=== PATIENT | female | born 1985 | race Caucasian/White ===

== ENCOUNTER 2024-03-12 15:31 | Emergency (ER) | payer OTHER, SELFPAY ==
[2024-03-12 15:40] VITALS: BP 141/102; PULSE 89; RESP 16; O2SAT 99; BMI 31.0
--- NOTE | 2024-03-12 15:48 | CRLHL7_ITS ---
For Patients: As a result of the Cures Act, medical imaging exams and procedure reports are released immediately into your electronic medical record. You may view this report before your referring provider. If you have questions, please contact your health care provider. Indication: Injury. Technique: Right hand 3 views. Comparison: None. Findings: Bones: Acute, transverse, minimally displaced fracture of the index finger distal phalanx tuft. No other fracture identified. Alignment is otherwise normal. No aggressive osseous lesion. Joint spaces: Unremarkable. Soft tissues: Mild soft tissue swelling and irregularity about the distal index finger. Impression: Acute, transverse, minimally displaced fracture of the index finger distal phalanx tuft. In the setting of an overlying soft tissue injury, this is considered an open fracture. Dictated by Rich Powers MD @ 03/12/2024 6:05:55 PM (Electronically Signed)
--- OUTSIDE RECORDS SUMMARY | 2024-03-12 16:10 | XMS_ITS | Encounter Summary ---
[facility] Address [address] [place] [id number] Care Team Providers Care Paper Cup Machine Operator Name Role Phone Dipesh Florez MD Primary Care Provider [phone] Reason for Visit * Reason Comments Follow-up, NOS Entered automaticall y based on patient selection in [employer]. Encounter Details Date Type Department Care Team (Late Contact Info) Description 03/10/2024 2:50 PM CDT E-Visit [facility] [address] [place] [address] Claudia Roach, TEACHER BALLET, EARTHMOVING PLANT OPERATOR [address] [place], [place] [id number] Chief Comp: Follow-up, NOS Social History Tobacco Use Types Packs/Day Years Used Date Smoking Tobacco: Former Cigarettes Q uit: 2007 Smokeless Tobacco: Never Comments:Marijuana Alcohol Use Standard Drinks/Week Comments Not Currently 0 (1 standard drink = 0.6 oz pur e alcohol) 1-5 a month PHQ-2 Answer Date Recorded PHQ-2 Score 4 03/27/2023 Sex and Gender Information Value Date Recorded Sex Assigned at Not on file Gender Identity Not on file Sexual Orientation Not on file documented as of this encounter Plan of Treatment Upcoming Encounters Date Type Department Care Team (Late Contact Info) Description 03/14/2024 3:15 PM CDT Appointment [facility] [address] [address] [place] [address] [place] [address] 03/27/2024 1:45 PM CDT Appointment [facility] [address] [facility] [address] [place] [phone] Paras Hardy, PA-C [address] [place] [address] 04/10/2024 3:30 PM CDT [facility]ment [facility] [address] V[facility] [address] [place] [phone] Rupesh Figueroa MD [address] [place], [place] [id number] 04/18/2024 11:10 AM CDT Appointment [facility] [place] [address] [place] [phone] Loreta Siegel, JEANNA [address] [place] [address] 05/23/2024 9:50 AM CDT Telemedicine [facility] [address] [place] [address] Claudia Roach, TEACHER BALLET, EARTHMOVING PLANT OPERATOR [address] [place], [place] [phone] documented as of this encounter Visit Diagnoses Not on filedocumented in this encounter Care Teams Paper Cup Machine Operator Relationship Specialty [place] [address] [place] [address] PCP - General Family Practice 08/19/19 documented as of this encounter
--- OUTSIDE RECORDS SUMMARY | 2024-03-12 16:10 | XMS_ITS | Encounter Summary ---
Author Organization [facility] Address [address] [place] [id number] Care Team Providers Care Process Coach Name Role Phone Dipesh Florez MD Primary Care Provider Reason for Referral * Procedure/Equipment (Routine) - Incomplete Specialty Diagnoses / Procedures Referred By Contac t Referred To Contact Diagnoses Mass of lower inner quadrant of right breast Mass of lower inner quadrant of left breast Procedures [facility] [place] [address] [place] [address] Referral ID Status Reason Start Date Expiration Date V isits Requested Visits Authorized [id number] Incomplete 01/01/2024 04/01/2025 1 1 * Procedure/Equipment (Routine) - Incomplete Specialty Diagnoses / Procedures Referred By Contac t Referred To Contact Diagnoses Mass of lower inner quadrant of right breast Mass of lower inner quadrant of left breast Procedures [facility] Mammogram Diag Bilat W 3D [place] [address] [place] [address] Referral ID Status Reason Start Date Expiration Date V isits Requested Visits Authorized [id number] Incomplete 01/01/2024 04/01/2025 1 1 * Consult/Transfer Care (Routine) - New Request Specialty Diagnoses / Procedures Referred By Enoch pfeiffer Referred To Contact Diagnoses [place] [address] [place] [address] Referral ID Status Reason Start Date Expiration Date V isits Requested Visits Authorized [id number] New Request 01/01/2024 04/01/2025 1 1 Scheduling Instructions Your clinician has recommended an appointment with [facility] (ENT) - Head & Neck Surgery. You may call [phone] for help scheduling your appointment. We suggest you call your health insurance company about your coverage and benefits for this appointment. Question Answer Appointment Urgency? Non-Urgent Reason for visit? upper and lower lip papules Reason for Visit * Reason Comments Bumps Lips cheeks, breasts , underarm, throat Encounter Details Date Type Department Care Team (Late st Contact Info) Description 01/01/2024 3:00 PM CDT Office Visit [facility] [address] [place] [address] [place] [address] [place] [id number] Abdominal bloating (Primary Dx); Lip lesion; Anxiety state (HRC); Mass of lower inner quadrant of right breast; Mass of lower inner quadrant of left breast; Vaginal discharge Social History Tobacco Use Types Packs/Day Years Used Date Smoking Tobacco: Former Cigarettes Q uit: 2006 Smokeless Tobacco: Never Comments:Marijuana Alcohol Use Standard Drinks/Week Comments Yes 0 (1 standard drink = 0.6 oz pur e alcohol) 1-5 a month PHQ-2 Answer Date Recorded PHQ-2 Score 4 03/27/2023 Sex and Gender Information Value Date Recorded Sex Assigned at Not on file Gender Identity Not on file Sexual Orientation Not on file documented as of this encounter Last Filed Vital Signs Vital Sign Reading Time Taken Comments Blood Pressure 111/79 01/01/2024 2:57 PM CDT Pulse 91 01/01/2024 2:57 PM CDT Temperature - - Respiratory Rate - - Oxygen Saturation - - Inhaled Oxygen Concentration - - Weight 94.8 kg (209 lb) 01/01/2024 2:57 PM CDT Height - - Body Mass Index 30.86 07/05/2023 2:09 PM CDT documented in this encounter Patient Instructions * Patient Instructions* Dipesh Florez MD - 01/01/2024 3:00 PM CDT Take Miralax 1 capful twice daily Continue with fiber supplement, and 100 oz of fluid daily Check labs today Follow up with GI Schedule with ENT Schedule mammogram/breast US documented in this encounter Progress Notes * Dipesh Florez MD - 01/01/2024 3:00 PM CDT [facility] Progress note 01/01/2024 HPI: Bel Qureshi is a 38 y.o. female who presents for: She has been sick often over the past 2 months. Had influenza A early November, followed by sinusitis/bronchitis. Then a stomach bug last week. Abdominal bloating: She reports that her digestion has been slower since taking Ozempic last year. Over the past couplemonths her bloating and nausea have been worse. Feeling increased pressure on the left side of the abdomen. Having constipation with BMs every other day on average despite taking MiraLax and Citruceldaily. She mentions also using laxatives intermittently. She has been eating more fiber rich foods and drinking about 100 oz of fluid daily. She has previously tried the low FODMAP diet. Tries to avoid foods that upset her stomach. No recent bloody stool, vomiting, unintentional weight loss. CT of the abdomen/pelvis in June 2023 showed mild hepatic steatosis but no other concerning findings. She has previously met with GI clinic. In 2021 completed a colonoscopy and an EGD in 2020. Lip bumps: Over the past few months has been noticing small tender bumps on the inner upper and lower lips that come and go and also fluctuate in size. Denies trauma to the areas. No oral ulcers noted. Breast lumps: For about 2 months has noticed tender breast lumps on the lower medial aspect of both breasts. The breast pain on the left side radiates toward the axilla. She thought initially the bumps and tenderness were related to her menstrual cycle but they have not gone away. Of note she did have a normal mammogram and right breast ultrasound in March 2023. LMP end of November. Her periods have been irregular. Insomnia: Hydroxyzine has been helpful Vaginal discharge: She reports having vaginal discharge with odor over the past few weeks. Seems similar to previous BV infections. PMHX: Patient Active Problem List Diagnosis Irritable bowel syndrome Migraine Tobacco use disorder (HRC) Chronic tonsillitis Myalgia Depressive disorder Panic disorder without agoraphobia (HRC) Anxiety state (HRC) Adenoma of colon Current Outpatient Medications Medication Sig Dispense Refill acetaminophen (TYLENOL) 325 MG tablet Take 2 Tablets (650 mg) by mouth 4 times a day. 100 Tablet 11 ALBUterol sulfate HFA 108 (90 Base) MCG/ACT inhaler Inhale 1-2 Puffs every 4 hours as needed for Wheezing. 1 Each 1 azelastine (ASTELIN) 0.1 % nasal solution Place 1 [place] into both nostrils two times a day. 30 mL 2 cholecalciferol (VITAMIND3) 50 MCG (2000 UT) tablet Take 1 Tablet (2,000 Units) by mouth daily. EPINEPHrine (EPIPEN) 0.3 MG/0.3ML injection famotidine (PEPCID) 20 MG tablet Take 1 Tablet (20 mg) by mouth two times a day. fexofenadine (JOCELYN) 180 MG tablet Take 1 Tablet (180 mg) by mouth daily. fluticasone propionate (FLONASE) 50 MCG/ACT nasal solution Place 2 Sprays into both nostrils daily. hydrocortisone (ANUCORT-HC) 25 MG suppository Insert 1 Suppository (25 mg) rectally two times dailyas needed. 12 Each 0 hydrocortisone, Perianal, (PROCTOSOL-HC) 2.5 % rectal cream Insert rectally two times daily as needed. Indications: Inflamed Hemorrhoids 30 g 1 hydrOXYzine HCl (ATARAX) 25 MG tablet Take 1/2 to 1 Tablet (12.5-25 mg) by mouth every 8 hours as needed for Anxiety. 90 Tablet 2 hyoscyamine (LEVSIN/SL) 0.125 MG sublingual tablet Take 1 Tablet (0.125 mg) by mouth every 6 hours as needed for Cramping. 60 Tablet 3 ibuprofen (MOTRIN) 200 MG tablet Take 1-2 Tablets (200-400 mg) by mouth every 4 hours as needed forPain. Inositol-D Chiro-Inositol (OVASITOL OR) lidocaine 3% nifedipine 0.5% occluvan Apply a pea sized amount topically three times a day to the affected area. 60 g 1 LORazepam (ATIVAN) 0.5 MG tablet Take 1 Tablet (0.5 mg) by mouth daily as needed for Anxiety. 15 Tablet 0 methylcellulose (CITRUCEL) 500 MG Take 2 Tablets (1 g) by mouth two times a day. multivitamin (THERAGRAN) tablet Take 1 Tablet by mouth daily. naproxen sodium (ANAPROX) 220 MG tablet Take 1 Tablet (220 mg) by mouth two times a day with meals. NURTEC 75 MG TBDP Take 1 Tablet (75 mg) by mouth as needed. ondansetron (ZOFRAN-ODT) 4 MG disintegrating tablet 1 to 2 tabs by mouth up to twice a day as needed for nausea symptoms related to headache. Max 9 days per month. 20 Tablet 1 polyethylene glycol 3350 (GLYCOLAX) 17 GM/SCOOP powder Take 1 capful (17 g) and mix with 4oz-8oz liquid and drink by mouth two times a day. As needed 578 g 11 Probiotic Product (SUPER PROBIOTIC OR) 1 Tablet daily. riboflavin 100 MG Take 1 Tablet (100 mg) by mouth daily. 90 Tablet 3 No current facility-administered medications for this visit. Allergies Allergen Reactions Isovue [Iopamidol] Anaphylaxis, Breathing Difficulty and Chest Pain Iodine Unknown Semaglutide Gastrointestinal Sumatriptan Chest Pain Flushing Review of Systems: Complete ROS negative other than above Physical Exam: Filed Vitals: 01/01/24 1457 BP: 111/79 Pulse: 91 Weight: 209 lb (94.8 kg) Estimated body mass index is 30.86 kg/m?? as calculated from the following: Height as of 07/05/23: 5' 9 (1.753 m). Weight as of this encounter: 209 lb (94.8 kg). Gen: AOx3, NAD HEENT: PERRL, EOMI, no icterus, MMM, no oral sores, there are small palpable nodules of the inner lower and upper lip more prominent on the left side. Neck: no LAD Lungs: CTAB, no wheezing or crackles CV: RRR, no murmurs/rubs/gallops ABD: Soft, mild periumbilical tenderness, no HSM or masses Extrem: warm with pulses Skin: no visible rashes Neuro: grossly intact, no focal deficits Breast exam: no axillary LAD, lower medial breasts bilaterally with clusters of small tender palpable nodules about 3 mm in size Assessment and Plan Abdominal bloating, IBS-C Will plan to check the below labs. Previous CT scan in June was unremarkable. Recommend increasing MiraLax to twice daily. Continue daily Citrucel. Continue with increased fluid and fiber intake. She will continue to limit foods that worsen her symptoms. Has follow-up with GI clinic next month. Could possibly consider Linzess in the future. - Complete Blood Count -W/Diff; Future - Liver Panel(Hepatic Function Panel); Future - Electrolyte Panel; Future - Creatinine / GFR; Future - C-Reactive Protein; Future - polyethylene glycol 3350 (GLYCOLAX) 17 GM/SCOOP powder; Take 1 capful (17 g) and mix with 4oz-8ozliquid and drink by mouth two times a day. As needed - TSH; Future Lip lesions Over the past few months has been getting recurrent tender bump/nodules on her inner upper and lower lip. Suspect most likely related to benign cyst or mucocele. Will have her meet with ENT for evaluation. - Otolaryngology Consult Adult/Peds Anxiety state (HRC) - hydrOXYzine HCl (ATARAX) 25 MG tablet; Take 1/2 to 1 Tablet (12.5-25 mg) by mouth every 8 hours as needed for Anxiety. Mass of lower inner quadrant of right breast Mass of lower inner quadrant of left breast She is noticing small tender nodules of the lower inner breasts on both sides that have persisted for about 2 months. These feel benign on exam. Will plan to follow-up with mammogram and ultrasound. - [facility] Mammogram Diag Bilat W 3D Scott; Future - [facility] US Breast Bilat; Future Vaginal discharge - Urinalysis Routine, Micro/Culture if Pos: Clean Catch; Future - Vaginitis Panel Dipesh Florez MD [facility] documented in this encounter Plan of Treatment Upcoming Encounters Date Type Department Care Team (Late st Contact Info) Description 03/14/2024 3:15 PM CDT Appointment [facility] [address] [place] [address] [place] [address] [place] [address] 03/27/2024 1:45 PM CDT [facility] [address] [facility], [facility], and Thro[facility] [address] [place] [phone] Paras Hardy, PASamirC [address] [place], [place] [id number] 04/10/2024 3:30 PM CDT Appointment [facility] [address] Vascular Surgery [address] [place] [phone] Rupesh Figueroa MD [address] [place], [place] [id number] 04/18/2024 11:10 AM CDT Appointment [facility] [address] [place] [phone] Loreta Siegel, OD [address] [place] [address] 05/23/2024 9:50 AM CDT Telemedicine [facility] [address] [place], [place] [address] Claudia Roach, TRAINING AND DEVELOPMENT REP, [facility] [address] [place], [place] [address] Scheduled Referrals Name Type Priority Associated Diagnoses Orde r Schedule Otolaryngology Consult Adult/Peds Referral Routine Lip lesion Ordered: 01/01/2024 documented as of this encounter Procedures Procedure Name Priority Date/Time Associated Diagnosis Comments VAGINITIS PANEL Routine 01/01/2024 4:29 PM CDT Vaginal discharge documented in this encounter Results * [facility] US Breast Bilat (01/21/2024 3:18 PM CDT) Anatomical Region Laterality Modality Breast Bilateral Ultrasound 01/21/2024 3:18 PM CDT Impressions 01/21/2024 3:24 PM CDT HISTORY: Bilateral tender lumps. COMPARISON: 03/07/2023, 02/11/2020, 05/14/2018 ?? FINDINGS: Tomographic craniocaudal and mediolateral oblique projections of the bilateral breasts with C view obtained. ??The breasts are almost entirely fatty. There is normal breast tissue without suspicious calcification, mass or distortion in either breast Ultrasound of the right breast, where the patient reports pain, at the 4 o'clock position demonstrated normal breast tissue. The surrounding breast tissue between the 2:00 and 6:00 positions is also normal. Ultrasound of the left breast, where the patient reports pain, at the 7 o'clock and 3:30 positions demonstrated normal breast tissue. The surrounding breast tissue between the 2:00 and 9:00 positions is also normal. ?? IMPRESSION: ACR BI-RADS CATEGORY 1: ??Negative RECOMMENDATION: The patient was provided information on breast pain. Clinical follow up is recommended if the patient's symptoms persist. The results of this examination and recommended follow up were discussed with the patient. The [facility] will attempt to schedule recommended follow up with the patient. Narrative Procedure Note Loi Nowak MD - 01/21/2024 IMPRESSION HISTORY: Bilateral tender lumps. COMPARISON: 03/07/2023, 02/11/2020, 05/14/2018 FINDINGS: Tomographic craniocaudal and mediolateral oblique projections ofthe bilateral breasts with C view obtained. The breasts are almostentirely fatty. There is normal breast tissue without suspiciouscalcification, mass or distortion in either breast Ultrasound of the right breast, where the patient reports pain, at the 4o'clock position demonstrated normal breast tissue. The surrounding breasttissue between the 2:00 and 6:00 positions is also normal. Ultrasound ofthe left breast, where the patient reports pain, at the 7 o'clock and 3:30positions demonstrated normal breast tissue. The surrounding breast tissuebetween the 2:00 and 9:00 positions is also normal. IMPRESSION: ACR BI-RADS CATEGORY 1: Negative RECOMMENDATION: The patient was provided information on breast pain.Clinical follow up is recommended if the patient's symptoms persist. The results of this examination and recommended follow up were discussedwith the patient. The [facility] will attempt to schedulerecommended follow up with the patient. Dipesh Florez MD [facility] * [facility] Mammogram Diag Bilat W 3D Scott (01/21/2024 2:36 PM CDT) Anatomical Region Laterality Modality Breast Bilateral Mammography 01/21/2024 2:34 PM CDT Impressions 01/21/2024 3:24 PM CDT HISTORY: Bilateral tender lumps. COMPARISON: 03/07/2023, 02/11/2020, 05/14/2018 ?? FINDINGS: Tomographic craniocaudal and mediolateral oblique projections of the bilateral breasts with C view obtained. ??The breasts are almost entirely fatty. There is normal breast tissue without suspicious calcification, mass or distortion in either breast Ultrasound of the right breast, where the patient reports pain, at the 4 o'clock position demonstrated normal breast tissue. The surrounding breast tissue between the 2:00 and 6:00 positions is also normal. Ultrasound of the left breast, where the patient reports pain, at the 7 o'clock and 3:30 positions demonstrated normal breast tissue. The surrounding breast tissue between the 2:00 and 9:00 positions is also normal. ?? IMPRESSION: ACR BI-RADS CATEGORY 1: ??Negative RECOMMENDATION: The patient was provided information on breast pain. Clinical follow up is recommended if the patient's symptoms persist. The results of this examination and recommended follow up were discussed with the patient. The [facility] will attempt to schedule recommended follow up with the patient. Narrative Procedure Note Loi Nowak MD - 01/21/2024 IMPRESSION HISTORY: Bilateral tender lumps. COMPARISON: 03/07/2023, 02/11/2020, 05/14/2018 FINDINGS: Tomographic craniocaudal and mediolateral oblique projections ofthe bilateral breasts with C view obtained. The breasts are almostentirely fatty. There is normal breast tissue without suspiciouscalcification, mass or distortion in either breast Ultrasound of the right breast, where the patient reports pain, at the 4o'clock position demonstrated normal breast tissue. The surrounding breasttissue between the 2:00 and 6:00 positions is also normal. Ultrasound ofthe left breast, where the patient reports pain, at the 7 o'clock and 3:30positions demonstrated normal breast tissue. The surrounding breast tissuebetween the 2:00 and 9:00 positions is also normal. IMPRESSION: ACR BI-RADS CATEGORY 1: Negative RECOMMENDATION: The patient was provided information on breast pain.Clinical follow up is recommended if the patient's symptoms persist. The results of this examination and recommended follow up were discussedwith the patient. The [facility] will attempt to schedulerecommended follow up with the patient. Dipesh Florez MD [facility] * (ABNORMAL) Urinalysis Routine, Micro/Culture if Pos: Clean Catch (01/01/2024 4:57 PM CDT) Urine Culture Comment Urinalysis results do not meet criteria for urine culture reflex. 01/01/2024 5:00 PM [facility] Urine Color Yellow 01/01/2024 5:00 PM [facility] Urine Clarity Clear Clear 01/01/2024 5:00 PM [facility] Specific [place], Urine 1.025 1.005 - 1.030 01/01/2024 5:00 PM [facility] PH Urine 6.0 5.0 - 8.0 01/01/2024 5:00 PM [facility] Protein, Urine Qual (mg/dL) Negative Neg/Trace 01/01/2024 5:00 PM [facility] Glucose Urine Qual (mg/dL) Negative Negative 01/01/2024 5:00 PM [facility] Ketones, Urine (mg/dL) 15(A) Negative 01/01/2024 5:00 PM [facility] Urobilinogen, Urine (EU/dL) 2.0(A) <2.0 01/01/2024 5:00 PM CDT [facility] Bilirubin Urine Small(A) Negative 01/01/2024 5:00 PM CDT [facility] Blood, Urine Negative Neg/Trace 01/01/2024 5:00 PM CDT [facility] Nitrite Urine Negative Negative 01/01/2024 5:00 PM CDT [facility] Leukocyte Est. Negative Negative 01/01/2024 5:00 PM CDT [facility] Urine Source Clean Catch 01/01/2024 5:00 PM CDT [facility] Urine URINE SPECIMEN COLLECTION, CLEAN CATCH / Unknown Non-blood Collection / Unknown 01/01/2024 4:57 PM CDT 01/01/2024 4:57 PM CDT Dipesh Florez MD LAB_1 Performing Organization Address City/[facility]/ZIP Co de Phone Number [facility] [address] [place] [phone] * TSH (01/01/2024 4:55 PM CDT) Pathologist [facility] TSH, Sensitive 2.11 0.30 - 4.50 uIU/mL 01/01/2024 9:41 PM CDT [facility] Blood Venipuncture / Unknown 01/01/2024 4:55 PM CDT 01/01/2024 4:55 PM CDT Dipesh Florez MD LAB_1 [facility] [address] * C-Reactive Protein (01/01/2024 4:55 PM CDT) Pathologist [facility] C-Reactive Protein <0.5 0.0 - 0.5 mg/dL 01/01/2024 6:42 PM CDT [facility] Blood Venipuncture / Unknown 01/01/2024 4:55 PM CDT 01/01/2024 4:55 PM CDT Dipesh Florez MD LAB_1 Performing Organization Address [facility]/ZIP Co de Phone Number [facility] [address] [place] [address] * Creatinine / GFR (01/01/2024 4:55 PM CDT) Pathologist [facility] Creatinine 0.78 0.55 - 1.02 mg/dL 01/01/2024 6:42 PM CDT [facility] GFR, Estimated >60 >60 mL/min/1.7 3m2 01/01/2024 6:42 PM CDT [facility] Blood Venipuncture / Unknown 01/01/2024 4:55 PM CDT 01/01/2024 4:55 PM CDT Dipesh Florez MD LAB_1 Performing Organization [address] [facility] de Phone Number [facility] [address] [place] [address] * Electrolyte Panel (01/01/2024 4:55 PM CDT) [facility] Sodium 139 136 - 145 mmol/L 01/01/2024 6:42 PM CDT [facility] Potassium 4.6 3.5 - 5.1 mmol/L 01/01/2024 6:42 PM CDT [facility] Chloride 105 98 - 109 mmol/L 01/01/2024 6:42 PM CDT [facility] CO2 25 20 - 29 mmol/L 01/01/2024 6:42 PM CDT [facility] Anion Gap 9 7 - 16 mmol/L 01/01/2024 6:42 PM CDT [facility] Blood Venipuncture / Unknown 01/01/2024 4:55 PM CDT 01/01/2024 4:55 PM CDT Dipesh Florez MD LAB_[address] Per[address] [facility]/ZIP Co de Phone Number [facility] [id number] [place] [phone] * (ABNORMAL) Liver Panel(Hepatic Function Panel) (01/01/2024 4:55 PM CDT) Pathologist [facility] Alkaline Phosphatase 70 40 - 150 U/L 01/01/2024 6:42 PM CDT [facility] Bilirubin, Total 1.7(H) 0.2 - 1.2 mg/dL 01/01/2024 6:42 PM CDT [facility] Bilirubin, Direct 0.6(H) 0.0 - 0.5 mg/dL 01/01/2024 6:42 PM T [facility] AST (SGOT) 18 10 - 40 U/L 01/01/2024 6:42 PM T [facility] ALT (SGPT) 14 <=55 U/L 01/01/2024 6:42 PM T [facility] Protein, Total 7.5 6.4 - 8.3 g/dL 01/01/2024 6:42 PM T [facility] Albumin 4.1 3.5 - 5.0 g/dL 01/01/2024 6:42 PM CDT [facility] Blood Venipuncture / Unknown 01/01/2024 4:55 PM CDT 01/01/2024 4:55 PM CDT Dipesh Florez MD LAB_1 [facility] [address] [place] [address] * Vaginitis Panel (01/01/2024 4:29 PM CDT) [facility] Bacterial Vaginosis Negative Negative 01/02/2024 3:05 PM CDT [facility] Shae species Negative Negative 3:05 PM CDT [facility] Shae glabrata Negative Negative 01/02/2024 3:05 PM CDT [facility] Trichomonas vaginalis Negative Negative 01/02/2024 3:05 PM CDT [facility] Swab STD SPECIMEN FROM VAGINA / Unknown Non-blood Collection / Unknown 01/01/2024 4:29 PM CDT 01/01/2024 7:09 PM CDT Narrative [facility] - 01/02/2024 3:05 PM CDT Test performed by [employer] Compounder Mediated Amplification (TMA). Dipesh Florez MD LAB_1 [facility] [address] [place] [address] documented in this encounter Visit Diagnoses Diagnosis Abdominal bloating- Primary Flatulence, eructation, and gas pain Lip lesion Diseases of lips Anxiety state (HRC) Anxiety state, unspecified Mass of lower inner quadrant of right breast Mass of lower inner quadrant of left breast Vaginal discharge Leukorrhea, not specified as infective Mass of lower inner quadrant of right breast Mass of lower inner quadrant of left breast Mass of lower inner quadrant of right breast Mass of lower inner quadrant of left breast documented in this encounter Care Teams Process Coach Relationship Specialty [place] [address] [place] [id number] PCP - General Family Practice 08/19/19 documented as of this encounter
--- OUTSIDE RECORDS SUMMARY | 2024-03-12 16:10 | XMS_ITS | Encounter Summary ---
[facility] Organization [facility] Address [address] [place] [id number] Care Team Providers Care Workers Compensation Manager Name Role Phone Dipesh Florez MD Primary Care Provider [phone] Encounter Details Date Type Department Care Team (Late st Contact Info) Description 01/01/2024 4:55 PM CDT Lab Visit [facility] [address] [place] [address] Vaginal discharge; Abdominal bloating Social History Tobacco Use Types Packs/Day Years [...] 3:15 PM CDT Appointment [facility] [place] [address] [place] [address] [place] [address] [place], [place] [phone] 03/27/2024 1:45 PM CDT Appointment [facility] [place] [address] [facility], [facility], [facility] Thro[facility] [address] [place] [phone] Paras Hardy PA-C [address] [place] [address] 04/10/2024 3:30 PM CDT Appointment [facility] [address] Vascular Surgery [address] [place] [phone] Rupesh Figueroa MD [address] [place], [place] [id number] 04/18/2024 11:10 AM CDT Appointment [facility] [place] [address] [place] [phone] Loreta Siegel OD [address] [place], [place] [id number] 05/23/2024 9:50 AM CDT [facility] [address] [place], [place] [address] Claudia Roach, GROUND CREW CHIEF, DIRECTORY CARRIER [address] [place], [place] [phone] documented as of this encounter Procedures Procedure Name Priority Date/Time Associated Diagnosis Comments URINALYSIS ROUTINE, MICRO/CULTURE IF POS Routine 01/01/2024 4:57 PM CDT Vaginal discharge CBC AND DIFFERENTIAL PANEL Routine 01/01/2024 4:55 PM CDT Abdominal bloating CREATININE / GFR Routine 01/01/2024 4:55 PM CDT Abdominal bloating COMPLETE BLOOD COUNT-W/DIFF Routine 01/01/2024 4:55 PM CDT Abdominal bloating LIVER PANEL(HEPATIC FUNCTION PANEL) Routine 01/01/2024 4:55 PM CDT Abdominal bloating TSH, SENSITIVE Routine 01/01/2024 4:55 PM CDT Abdominal bloating ELECTROLYTE PANEL Routine 01/01/2024 4:5 5 PM CDT Abdominal bloating C-REACTIVE PROTEIN Routine 01/01/2024 4: 55 PM CDT Abdominal bloating documented in this encounter Results * (ABNORMAL) Urinalysis Routine, Micro/Culture if Pos: Clean Catch (01/01/2024 4:57 PM CDT) Urine Culture Comment Urinalysis results do not meet criteria for urine culture reflex. 01/01/2024 5:00 PM [facility] Urine Color Yellow 01/01/2024 5:00 PM [facility] Urine Clarity Clear Clear 01/01/2024 5:00 PM [facility] Specific [place], Urine 1.025 1.005 - 1.030 01/01/2024 5:00 PM [facility] PH Urine 6.0 5.0 - 8.0 01/01/2024 5:00 PM [facility] Protein, Urine Qual (mg/dL) Negative Neg/Trace 01/01/2024 5:00 PM [facility] Glucose Urine Qual (mg/dL) Negative Negative 01/01/2024 5:00 PM [facility] Ketones, Urine (mg/dL) 15(A) Negative 01/01/2024 5:00 PM [facility] Urobilinogen, Urine (EU/dL) 2.0(A) <2.0 01/01/2024 5:00 PM [facility] Bilirubin Urine Small(A) Negative 01/01/2024 5:00 PM [facility] Blood, Urine Negative Neg/Trace 01/01/2024 5:00 PM [facility] Nitrite Urine Negative Negative 01/01/2024 5:00 PM [facility] Leukocyte Est. Negative Negative 01/01/2024 5:00 PM [facility] Urine Source Clean Catch 01/01/2024 5:00 PM [facility] Urine URINE SPECIMEN COLLECTION, CLEAN CATCH / Unknown Non-blood Collection / Unknown 01/01/2024 4:57 PM CDT 01/01/2024 4:57 PM CDT Dipesh Florez MD LAB_1 [facility] [address] [place] [address] * Complete Blood Count-W/Diff (01/01/2024 4:55 PM CDT) WBC 4.8 3.5 - 10.5 x10(9)/L 01/01/2024 4:59 PM [facility] RBC 4.48 3.90 - 5.03 x10(12)/L 01/01/2024 4:59 PM [facility] Hemoglobin 13.5 12.0 - 15.5 g/dL 01/01/2024 4:59 PM [facility] HCT 40.1 34.9 - 44.5 % 01/01/2024 4:59 PM [facility] MCV 89.5 80.0 - 100.0 fL 01/01/2024 4:59 PM [facility] MCH 30.1 27.6 - 33.3 pg 01/01/2024 4:59 PM [facility] MCHC 33.7 31.5 - 35.2 g/dL 01/01/2024 4:59 PM [facility] RDW 11.9 11.9 - 15.5 % 01/01/2024 4:59 PM [facility] Platelets 294 150 - 450 x10(9)/L 01/01/2024 4:59 PM [facility] Automated NRBC 0 <=0 /100 WBC 01/01/2024 4:59 PM [facility] Neutrophil Absolute 3.2 1.7 - 7.0 10(9)/L 01/01/2024 4:59 PM [facility] Lymphocyte Absolute 1.2 1.0 - 4.8 10(9)/L 01/01/2024 4:59 PM [facility] Monocyte Absolute 0.3 0.2 - 0.9 10(9)/L 01/01/2024 4:59 PM CDT [facility] Eosinophil Absolute 0.1 0.0 - 0.5 10(9)/L 01/01/2024 4:59 PM CDT [facility] Basophil Absolute 0.0 0.0 - 0.3 10(9)/L 01/01/2024 4:59 PM CDT [facility] Immature Granulocyte % 0.4 0.0 - 0.5 % 01/01/2024 4:59 PM CDT [facility] Blood Venipuncture / Unknown 01/01/2024 4:55 PM CDT 01/01/2024 4:55 PM CDT Dipesh Florez MD LAB_1 Performing Organization Address [facility]/ZIP Co de Phone Number [facility] [address] [place] [address] * TSH (01/01/2024 4:55 PM CDT) Pathologist [facility] TSH, Sensitive 2.11 0.30 - 4.50 uIU/mL 01/01/2024 9:41 PM CDT [facility] Blood Venipuncture / Unknown 01/01/2024 4:55 PM CDT 01/01/2024 4:55 PM CDT Dipesh Florez MD LAB_1 Performing Organization Address [facility] Co de Phone Number [facility] [address] * C-Reactive Protein (01/01/2024 4:55 PM CDT) Pathologist [facility] C-Reactive Protein <0.5 0.0 - 0.5 mg/dL 01/01/2024 6:42 PM CDT [facility] Blood Venipuncture / Unknown 01/01/2024 4:55 PM CDT 01/01/2024 4:55 PM CDT Dipesh Florez MD LAB_1 Performing Organization Address City/[facility]/ZIP Co de Phone Number [facility] [address] [place] [address] * Creatinine / GFR (01/01/2024 4:55 PM CDT) Pathologist [facility] Creatinine 0.78 0.55 - 1.02 mg/dL 01/01/2024 6:42 PM CDT [facility] GFR, Estimated >60 >60 mL/min/1.7 3m2 01/01/2024 6:42 PM CDT [facility] Blood Venipuncture / Unknown 01/01/2024 4:55 PM CDT 01/01/2024 4:55 PM CDT Dipesh Florez MD LAB_1 Performing Organization Address [facility] de Phone Number [address] [address] * Electrolyte Panel (01/01/2024 4:55 PM CDT) [facility] Sodium 139 136 - 145 mmol/L 01/01/2024 6:42 PM CDT [facility] Potassium 4.6 3.5 - 5.1 mmol/L 01/01/2024 6:42 PM CDT [facility] Chloride 105 98 - 109 mmol/L 01/01/2024 6:42 PM CDT [facility] CO2 25 20 - 29 mmol/L 01/01/2024 6:42 PM CDT [facility] Anion Gap 9 7 - 16 mmol/L 01/01/2024 6:42 PM CDT [facility] Blood Venipuncture / Unknown 01/01/2024 4:55 PM CDT 01/01/2024 4:55 PM CDT Dipesh Florez MD LAB_1 Performing Organization Address [facility] de Phone Number [address] [phone] * (ABNORMAL) Liver Panel(Hepatic Function Panel) (01/01/2024 4:55 PM CDT) Pathologist [facility] Alkaline Phosphatase 70 40 - 150 U/L 01/01/2024 6:42 PM CDT [facility] Bilirubin, Total 1.7(H) 0.2 - 1.2 mg/dL 01/01/2024 6:42 PM T [facility] Bilirubin, Direct 0.6(H) 0.0 - 0.5 mg/dL 01/01/2024 6:42 PM T [facility] AST (SGOT) 18 10 - 40 U/L 01/01/2024 6:42 PM T [facility] ALT (SGPT) 14 <=55 U/L 01/01/2024 6:42 PM T [facility] Protein, Total 7.5 6.4 - 8.3 g/dL 01/01/2024 6:42 PM T [facility] Albumin 4.1 3.5 - 5.0 g/dL 01/01/2024 6:42 PM [facility] Blood Venipuncture / Unknown 01/01/2024 4:55 PM CDT 01/01/2024 4:55 PM CDT Dipesh Florez MD LAB_1 Performing Organization Address City/State/[facility] Co de Phone Number [facility] [address] [place] [address] documented in this encounter Visit Diagnoses Diagnosis Vaginal discharge Leukorrhea, not specified as infective Abdominal bloating Flatulence, eructation, and gas pain documented in this encounter Care Teams Workers Compensation Manager Relationship Specialty [place] [address] [place] [place] [address] PCP - General Family Practice 08/19/19 documented as of this encounter
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
--- OUTSIDE RECORDS SUMMARY | 2024-03-12 16:10 | XMS_ITS | Clinical Summary ---
Author Organization [facility] Address [address], [place] [address] Care Team Providers Care Cnc Supervisor Name Role Phone Dipesh Florez MD Primary Care Provider [phone] Source Comments You are receiving this document as you are listed as the primary care provider,follow-up provider, or the patient has been referred to you for consultation.This is in compliance with the Medicare and[employer] EHR Incentive Program,which states Providers who transition their patient to another setting of careor provider of care or refers their patient to another provider of care shouldprovide summary care record for each transition of care or referral. Berggi Allergies Active Allergy Reactions Criticality Noted Date Comments Iodine Unknown 08/10/2020 Iopamidol Anaphylaxis,Breathin g Difficulty,Chest Pain High 08/05/2020 Semaglutide Gastrointestinal 03/27/2023 Sumatriptan Chest Pain 03/20/2018 [place]ushing Medications Medication Sig Dispensed Refills Start Date End Date Status acetaminophen (TYLENOL) 325 MG tabletIndications:Chr onic neck pain Take 2 Tablets (650 mg) by mouth 4 times a day. 100 Tablet 11 9 Active Probiotic Product (SUPER PROBIOTIC OR) 1 Tablet daily. Active fluticasone propionate (FLONASE) 50 MCG/ACT nasal solution Place 2 Sprays into both nostrils daily. Active multivitamin (THERAGRAN) tablet Take 1 Tablet by mouth daily. Active ibuprofen (MOTRIN) 200 MG tablet Take 1-2 Tablets (200-400 mg) by mouth every 4 hours as needed for Pain. Active naproxen sodium (ANAPROX) 220 MG tablet Take 1 Tablet (220 mg) by mouth two times a day with meals. Active ondansetron (ZOFRAN-ODT) 4 MG disintegrating tablet 1 to 2 tabs by mouth up to twice a day as needed for nausea symptoms related to headache. Max 9 days per month. 20 Tablet 1 0 Active fexofenadine (JOCELYN) 180 MG tablet Take 1 Tablet (180 mg) by mouth daily. Active EPINEPHrine (EPIPEN) 0.3 MG/0.3ML injection Active hyoscyamine (LEVSIN/SL) 0.125 MG sublingual tabletIndications:Irr itable bowel syndrome, unspecified type,Visceral hypersensitivity syndrome,Abdominal bloating Take 1 Tablet (0.125 mg) by mouth every 6 hours as needed for Cramping. 60 Tablet 3 3 Active methylcellulose (CITRUCEL) 500 MG Take 2 Tablets (1 g) by mouth two times a day. 3 Active cholecalciferol (VITAMIND3) 50 MCG (2000 UT) tablet Take 1 Tablet (2,000 Units) by mouth daily. Active famotidine (PEPCID) 20 MG tablet Take 1 Tablet (20 mg) by mouth two times a day. Active NURTEC 75 MG TBDP Take 1 Tablet (75 mg) by mouth as needed. 3 Active ALBUterol sulfate HFA 108 (90 Base) MCG/ACT inhalerIndications:Sh ortness of breath Inhale 1-2 Puffs every 4 hours as needed for Wheezing. 1 Each 1 3 Active riboflavin 100 MG Take 1 Tablet (100 mg) by mouth daily. 90 Tablet 3 3 Active hydrocortisone (ANUCORT-HC) 25 MG suppositoryIndication s:Hemorrhoids, unspecified hemorrhoid type Insert 1 Suppository (25 mg) rectally two times daily as needed. 12 Each 3 Active Inositol-D Chiro-Inositol (OVASITOL OR) Active azelastine (ASTELIN) 0.1 % nasal solutionIndications:N juana obstruction,Chronic sinusitis, unspecified location Place 1 [employer] into both nostrils two times a day. 30 mL 2 3 Active LORazepam (ATIVAN) 0.5 MG tabletIndications:Anx iety state (HRC) Take 1 Tablet (0.5 mg) by mouth daily as needed for Anxiety. 15 Tablet 3 Active lidocaine 3% nifedipine 0.5% occluvanIndications:A nal pain Apply a pea sized amount topically three times a day to the affected area. 60 g 1 3 Active hydrocortisone, Perianal, (PROCTOSOL-HC) 2.5 % rectal creamIndications:Infl asiya Hemorrhoids Insert rectally two times daily as needed. Indications: Inflamed Hemorrhoids 30 g 1 3 Active polyethylene glycol 3350 (GLYCOLAX) 17 GM/SCOOP powderIndications:Abd ominal bloating Take 1 capful (17 g) and mix with 4oz-8oz liquid and drink by mouth two times a day. As needed 578 g 11 4 Active hydrOXYzine HCl (ATARAX) 25 MG tabletIndications:Anx iety state (HRC) Take 1/2 to 1 Tablet (12.5-25 mg) by mouth every 8 hours as needed for Anxiety. 90 Tablet 2 4 Active omeprazole (PRILOSEC) 20 MG capsule Take 1 Capsule (20 mg) by mouth. Active triamcinolone (NASACORT AQ) 55 MCG/ACT nasal inhaler 2 Sprays by Nasal route. Active Generic Medication (COMPOUNDED CREAM)Indications:Ves tibulodynia Amitriptyline 2.5% + baclofen 2.5% + gabapentin 5% in versa base. Apply a pea sized amount to vulva qam and up to TID PRN irritation. Indications: Vestibulodynia 30 g 5 4 Active Active Problems Problem Noted Date Diagnosed Date Adenoma of colon 08/01/2020 Overview: Colonoscopy completed 07/2020, repeat in 5 years For tubular adenoma surveillance Colonoscopy completed 06/2022. Repeat in 3 years. 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 Chronic tonsillitis 03/06/2007 Overview: LW Modifier: s/p tonsillectomy ; Tonsillitis Chronic Irritable bowel syndrome 01/23/2007 Migraine 01/23/2007 Overview: Migraine NOS Tobacco use disorder 01/23/2007 Overview: LW Modifier: quit ; Tobacco Abuse Encounters Date Type Department Care Team Description 03/11/2024 10:30 AM CDT Telemedicine [facility] [address] [facility] [address] [place] [address] Norma Joy MD Female dyspareunia (Primary Dx); PCOS (polycystic ovarian syndrome) (HRC) 03/10/2024 2:50 PM CDT E-Visit [facility] [address] [place], [place] [phone] Claudia Roach, BUSINESS SERVICES COORDINATOR, FINANCE ADMIN Chief Comp: Follow-up, NOS 03/03/2024 2:45 PM CDT Ancillary Procedure [facility] [address] [place] [address] Leah Blum MD Right leg swelling 03/03/2024 2:20 PM CDT Office Visit [facility] [address] [place] [address] Leah Blum MD Right leg swelling 02/21/2024 1:50 PM CDT Office Visit [facility] [address] [place], [place] [phone] Claudia Roach, BUSINESS SERVICES COORDINATOR, FINANCE ADMIN Irritable bowel syndrome, unspecified type (Primary Dx) 02/07/2024 2:45 PM CDT Office Visit [facility] [address] [place] [address] Rosalia Jeter, PT Constipation, unspecified constipation type (Primary Dx); Dyspareunia in female; Bladder pain; Urge incontinence 01/28/2024 3:40 PM CDT Office Visit [facility] [address] [facility], [address] [place] [address] Dipesh Arcos, OD Hordeolum externum of right lower eyelid (Primary Dx) 01/28/2024 2:40 PM CDT Office Visit [facility] [address] [facility] [address] [place] [phone] Jakob Casas, BUSINESS SERVICES COORDINATOR, FINANCE ADMIN Hordeolum externum of right lower eyelid 01/28/2024 Telephone [facility] [address] [place], [place] [phone] [facility] Problem 01/21/2024 3:00 PM CDT Ancillary Procedure [facility] [address] [facility] [place] [address] Dipesh Florez MD Mass of lower inner quadrant of right breast; Mass of lower inner quadrant of left breast 01/21/2024 2:30 PM CDT Ancillary Procedure [facility] [address] [place] [address] Dipesh Florez MD Mass of lower inner quadrant of right breast; Mass of lower inner quadrant of left breast 01/01/2024 4:55 PM CDT Lab Visit [facility] [address] [place], [place] [phone] Vaginal discharge; Abdominal bloating 01/01/2024 3:00 PM CDT Office Visit [facility] [address] [place], [place] [phone] Dipesh Florez MD Abdominal bloating (Primary Dx); Lip lesion; Anxiety state (HRC); Mass of lower inner quadrant of right breast; Mass of lower inner quadrant of left breast; Vaginal discharge 12/18/2023 E[facility]Visit [facility] [address] [place] [address] Joey, Generic Provider 12/15/2023 rima Arthur [phone] from Last 3 Months Immunizations Name Administration Dates Next Due DTP 03/11/1990, 6,02/07/1985,1984,1984 Flu Vac (3+ yrs) 07/06/2016, 6,07/01/2015,2013,08/07/2013 Flu Vac Preserv Free (3+yrs) 06/16/2016 HepA Ped/Adol (1-18 yrs) 08/01/1999 HepA, Unspecified Formulation 12/07/1998 HepB Ped/Adol (0-18 yrs) 12/22/1996,06/13/1996,0 05/15/1996 Influenza IIV4 (Quadrivalent ) 0.5mL (64316) 08/07/2019,07/19/2018,06/12/2014 MMR 06/03/1996,02/04/1986 OPV, Trivalent (Orimune or tOPV) 990,02/04/1986,1984,1983 TDAP (ADACEL) 11/26/2006 Td 06/13/1996 Tdap 08/31/2016,07/31/2014 Family History Medical History Relation Name Comments Diabetes Father High Cholesterol Father Hypertension Father Cataract Mother Diabetes Mother Glaucoma Mother High Cholesterol Mother Hypertension Mother High Cholesterol Brother Hypertension Brother Migraines Cousin Heart Disease Maternal Grandfather Liver Disease Maternal Grandfather Stroke Maternal Grandfather old age Stroke Maternal Grandmother old age Heart Attack Paternal Grandfather fatal Cancer, Uterine Paternal Grandmother or o varian? Migraines Sister Amblyopia/Strabismus Negative Family History Brain Aneurysm Negative Family History Cancer, Breast Negative Family History Cancer, Ovary Negative Family History Macular Degeneration Negative Family History Retinal Detachment Negative Family History Relation Name Status Comments Father Alive Mother Alive Brother Cousin Alive Maternal Grandfather Maternal Grandmother Paternal Grandfather Paternal Grandmother Sister Alive Social History Tobacco Use Types Packs/Day Years Used Date Smoking Tobacco: Former Cigarettes Q uit: 2007 Smokeless Tobacco: Never Tobacco Cessation:Counseling Given: Not Answered Comments:Marijuana Alcohol Use Standard Drinks/Week Comments Not Currently 0 (1 standard drink = 0.6 oz pur e alcohol) 1-5 a month PHQ-2 Answer Date Recorded PHQ-2 Score 4 03/27/2023 Sex and Gender Information Value Date Recorded Sex Assigned at Not on file Gender Identity Not on file Sexual Orientation Not on file Last Filed Vital Signs Vital Sign Reading Time Taken Comments Blood Pressure 123/73 03/03/2024 2:10 PM CDT Pulse 97 03/03/2024 2:10 PM CDT Temperature 37.3 ??C (99.1 ??F) 03/03/2024 2:10 PM CD T Respiratory Rate 15 03/03/2024 2:10 PM CDT Oxygen Saturation 100% 03/03/2024 2:10 PM CDT Inhaled Oxygen Concentration - - Weight 96.3 kg (212 lb 4.8 oz) 02/21/2024 1:57 P M CDT Height 175.3 cm (5' 9) 02/21/2024 1:57 PM CDT Body Mass Index 31.35 02/21/2024 1:57 PM CDT Plan of Treatment Upcoming Encounters Date Type Department Care Team (Late st Contact Info) Description 03/14/2024 3:15 PM CDT Appointment [facility] [id number] [place] [address] [place] [address] [place] [address] 03/27/2024 1:45 PM CDT Appointment [facility] [address] [facility] [address] [place] [address] Paras Hardy PA-C [address] [place] [address] 04/10/2024 3:30 PM CDT Appointment [facility] [address] Vascular Surgery [address] [place] [address] Rupesh Figueroa MD [address] [place], [place] [phone] 04/18/2024 11:10 AM CDT Appointment [facility] [address] [place] [address] Loreta Siegel OD [address] [place], [place] [phone] 05/23/2024 9:50 AM CDT Telemedicine [facility] [address] [place], [place] [phone] Claudia Roach, BUSINESS SERVICES COORDINATOR, FINANCE ADMIN [address] [place] [address] Health Maintenance Due Date Last Done Comments MTM Targeted 05/13/2021 05/13/2020, 05/13/2020 COVID-19 Vaccine ( season) 2023 Adult Preventive Visit 09/02/2023 , 12/22/1996, 12/20/1993 Influenza (Season Ended) 2024 019, 07/19/2018, 07/06/2016, Additional history exists Colonoscopy 06/22/2025 06/22/2022, 07/23/2020 Cervical Cancer Screening 04/01/20262020, 04/01/2021 (Completed), 03/15/2006 DTaP/Tdap/Td (9 - Tdap) 08/31/2026 08/31/20 16, 07/31/2014, 11/26/2006, Additional history exists Diabetes Screening- (based on age and BMI) 10/02/2026 10/02/2023, 05/01/2023, 06/20/2022, Additional history exists Zoster/Shingles (1 of 2) 2034 IPV (Polio) Completed 03/11/1990, 03/1986, 1984, Additional history exists HepB Completed 12/22/1996, 06/01, 05/15/1996 HepA Completed 08/01/1999, 12/07/1998 HIV Screening (Preventive Services) Completed 04/25/2022, 04/16/2008, 11/26/2006, Additional history exists Hep C Screening (Preventive Services) Completed 04/25/2022, 11/26/2006 HPV Vaccine Aged Out No longer eligi ble based on patient's age to complete this topic Hib Aged Out No longer eligi ble based on patient's age to complete this topic MCV4 Aged Out No longer eligi ble based on patient's age to complete this topic Pneumococcal Aged Out No longer eligi ble based on patient's age to complete this topic Procedures Procedure Name Priority Date/Time Associated Diagnosis Comments US VENOUS RIGHT LOWER EXTREM DOPPLER Routine 03/03/2024 2:37 PM CDT Right leg swelling [facility] US BREAST BILAT Routine 01/21/2024 3 :18 PM CDT Mass of lower inner quadrant of right breast Mass of lower inner quadrant of left breast [facility] MAMMOGRAM DIAG BILAT W 3D SCOTT Routine 01/21/2024 2:36 PM CDT Mass of lower inner quadrant of right breast Mass of lower inner quadrant of left breast URINALYSIS ROUTINE, MICRO/CULTURE IF POS Routine 01/01/2024 4:57 PM CDT Vaginal discharge COMPLETE BLOOD COUNT-W/DIFF Routine 01/01/2024 4:55 PM CDT Abdominal bloating TSH, SENSITIVE Routine 01/01/2024 4:55 PM CDT Abdominal bloating C-REACTIVE PROTEIN Routine 01/01/2024 4: 55 PM CDT Abdominal bloating CREATININE / GFR Routine 01/01/2024 4:55 PM CDT Abdominal bloating ELECTROLYTE PANEL Routine 01/01/2024 4:5 5 PM CDT Abdominal bloating LIVER PANEL(HEPATIC FUNCTION PANEL) Routine 01/01/2024 4:55 PM CDT Abdominal bloating CBC AND DIFFERENTIAL PANEL Routine 01/01/2024 4:55 PM CDT Abdominal bloating VAGINITIS PANEL Routine 01/01/2024 4:29 PM CDT Vaginal discharge HGB A1C Routine 05/01/2023 11:32 AM CDT Diabetes mellitus screening ENDOSCOPY, COLON, SCREENING/DIAGNOSTIC Routine 06/22/2022 2:51 PM CDT Lower abdominal pain Irritable bowel syndrome with constipation Constipation, unspecified constipation type Anal or rectal pain HIV 1/2 AG/AB 4TH GEN Routine 04/25/2022 4:22 PM CDT Elevated LFTs HEPATITIS PANEL ACUTE WITH REFLEX TO CONFIRMATION Routine 04/25/2022 4:22 PM CDT Elevated LFTs ANATOMICAL PATH LIQUID BASED Routine 03/15/2006 9:32 AM CDT from Last 3 Months or Most Recently Relevant to Health Maintenance Results * US Venous Right Lower Extrem Doppler (03/03/2024 2:37 PM CDT) Anatomical Region Laterality Modality Vascular, Leg Ultrasound 03/03/2024 2:23 PM CDT Impressions 03/03/2024 2:39 PM CDT COMPARISON: ??None. CLINICAL HISTORY: ??leg swelling and pain for 3 weeks FINDINGS: The venous system of the right lower extremity was visualized using color-flow Doppler technique. ??The common femoral, proximal deep femoral, femoral, popliteal, and visualized portions of the posterior tibial and peroneal veins show normal compressibility, color flow, and response to augmentation. The great saphenous vein compresses normally. SCHULZ'S CYST: No IMPRESSION: No evidence of deep venous thrombosis. Small calf vein thrombosis cannot be completely excluded by this technique. Narrative Procedure Note Dipesh Deng MD - 03/03/2024 IMPRESSION COMPARISON: None. CLINICAL HISTORY: leg swelling and pain for 3 weeks FINDINGS: The venous system of the right lower extremity was visualizedusing color-flow Doppler technique. The common femoral, proximal deepfemoral, femoral, popliteal, and visualized portions of the posteriortibial and peroneal veins show normal compressibility, color flow, andresponse to augmentation. The great saphenous vein compresses normally. SCHULZ'S CYST: No IMPRESSION: No evidence of deep venous thrombosis. Small calf veinthrombosis cannot be completely excluded by this technique. Leah Blum MD RAD US * [facility] US Breast Bilat (01/21/2024 3:18 PM [...] up were discussed with the patient. The [facility] will attempt to schedule recommended follow up [...] follow up were discussedwith the patient. The [facility] [place] will attempt to schedulerecommended follow up with [...] up were discussed with the patient. The [facility] will attempt to schedule recommended follow up [...] follow up were discussedwith the patient. The [facility] will attempt to schedulerecommended follow up with the patient. Dipesh Florez MD RAD PIPER * (ABNORMAL) Urinalysis Routine, Micro/Culture if Pos: Clean Catch (01/01/2024 4:57 PM CDT) Urine Culture Comment Urinalysis results do not meet criteria for urine culture reflex. 01/01/2024 5:[address] [facility] Urine Color Yellow 01/01/2024 5:[address] [facility] Urine Clarity Clear Clear 01/01/2024 5:[address] [facility] Specific [place], Urine 1.025 1.005 - 1.030 01/01/2024 5:[address] [facility] PH Urine 6.0 5.0 - 8.0 01/01/2024 5:[address] [facility] Protein, Urine Qual (mg/dL) Negative Neg/Trace 01/01/2024 5:[address] [facility] Glucose Urine Qual (mg/dL) Negative Negative 01/01/2024 5:[address] [facility] Ketones, Urine (mg/dL) 15(A) Negative 01/01/2024 5:[address] [facility] Urobilinogen, Urine (EU/dL) 2.0(A) <2.0 01/01/2024 5:[address] [facility] Bilirubin Urine Small(A) Negative 01/01/2024 5:[address] [facility] Blood, Urine Negative Neg/Trace 01/01/2024 5:[address] [facility] Nitrite Urine Negative Negative 01/01/2024 5:[address] [facility] Leukocyte Est. Negative Negative 01/01/2024 5:[address] [facility] Urine Source Clean Catch 01/01/2024 5:[address] [facility] Urine URINE SPECIMEN COLLECTION, CLEAN CATCH / Unknown Non-blood Collection / Unknown 01/01/2024 4:57 PM CDT 01/01/2024 4:57 PM CDT Dipesh Florez MD LAB_1 Performing Organization Address [facility]/ZIP Co nv Phone Number [facility] [address] [place] [address] * Creatinine / GFR (01/01/2024 4:55 PM CDT) Creatinine 0.78 0.55 - 1.02 mg/dL 01/01/2024 6:[address] [facility] GFR, Estimated >60 >60 mL/min/1.7 3m2 01/01/2024 6:[address] [facility] Blood Venipuncture / Unknown 01/01/2024 4:55 PM CDT 01/01/2024 4:55 PM CDT Dipesh Florez MD LAB_1 [facility] [address] [place] [address], [facility] [[email or web address]] * Complete Blood Count-W/Diff (01/01/2024 4:55 PM CDT) [facility] Signature WBC 4.8 3.5 - 10.5 x10(9)/L 01/01/2024 4:59 PM CDT [facility] RBC 4.48 3.90 - 5.03 x10(12)/L 01/01/2024 4:59 PM T [facility] Hemoglobin 13.5 12.0 - 15.5 g/dL 01/01/2024 4:59 PM CDT [facility] HCT 40.1 34.9 - 44.5 % 01/01/2024 4:[address] [facility] MCV 89.5 80.0 - 100.0 fL 01/01/2024 4:59 PM CDT [facility] MCH 30.1 27.6 - 33.3 pg 01/01/2024 4:59 PM T [facility] MCHC 33.7 31.5 - 35.2 g/dL 01/01/2024 4:59 PM CDT [facility] RDW 11.9 11.9 - 15.5 % 01/01/2024 4:59 PM T [facility] Platelets 294 150 - 450 x10(9)/L 01/01/2024 4:[address] [facility] Automated NRBC 0 <=0 /100 WBC 01/01/2024 4:[address] [facility] Neutrophil Absolute 3.2 1.7 - 7.0 10(9)/L 01/01/2024 4:59 PM T [facility] Lymphocyte Absolute 1.2 1.0 - 4.8 10(9)/L 01/01/2024 4:59 PM T [facility] Monocyte Absolute 0.3 0.2 - 0.9 10(9)/L 01/01/2024 4:[address] [facility] Eosinophil Absolute 0.1 0.0 - 0.5 10(9)/L 01/01/2024 4:59 PM T [facility] Basophil Absolute 0.0 0.0 - 0.3 10(9)/L 01/01/2024 4:59 PM CDT [facility] Immature Granulocyte % 0.4 0.0 - 0.5 % 01/01/2024 4:59 PM CDT [facility] Blood Venipuncture / Unknown 01/01/2024 4:55 PM CDT 01/01/2024 4:55 PM CDT Dipesh Florez MD LAB_1 Performing Organization Address [facility] Phone Number [facility] [address] [place] [phone] * (ABNORMAL) Liver Panel(Hepatic Function Panel) (01/01/2024 4:55 PM CDT) Pathologist [facility] Alkaline Phosphatase 70 40 - 150 U/L 01/01/2024 6:42 PM CDT [facility] Bilirubin, Total 1.7(H) 0.2 - 1.2 mg/dL 01/01/2024 6:42 PM T [facility] Bilirubin, Direct 0.6(H) 0.0 - 0.5 mg/dL 01/01/2024 6:42 PM T [facility] AST (SGOT) 18 10 - 40 U/L 01/01/2024 6:42 PM T [facility] ALT (SGPT) 14 <=55 U/L 01/01/2024 6:42 PM CDT [facility] Protein, Total 7.5 6.4 - 8.3 g/dL 01/01/2024 6:42 PM T [facility] Albumin 4.1 3.5 - 5.0 g/dL 01/01/2024 6:42 PM T [facility] Blood Venipuncture / Unknown 01/01/2024 4:55 PM CDT 01/01/2024 4:55 PM CDT Dipesh Florez MD LAB_1 Performing Organization Address [facility] Phone Number [facility] [address] [place] [phone] * TSH (01/01/2024 4:55 PM CDT) Pathologist [facility] TSH, Sensitive 2.11 0.30 - 4.50 uIU/mL 01/01/2024 9:41 PM CDT [facility] Blood Venipuncture / Unknown 01/01/2024 4:55 PM CDT 01/01/2024 4:55 PM CDT Dipesh Florez MD LAB_1 Performing Organization Address City/[facility]/ZIP Co de Phone Number [facility] [address] [place], [place] [phone] [place] [address] * Electrolyte Panel (01/01/2024 4:55 PM CDT) Sodium 139 136 - 145 mmol/L 01/01/2024 6:42 PM CDT [facility] Potassium 4.6 3.5 - 5.1 mmol/L 01/01/2024 6:42 PM CDT [facility] Chloride 105 98 - 109 mmol/L 01/01/2024 6:42 PM CDT [facility] CO2 25 20 - 29 mmol/L 01/01/2024 6:42 PM CDT [facility] Anion Gap 9 7 - 16 mmol/L 01/01/2024 6:42 PM CDT [facility] Blood Venipuncture / Unknown 01/01/2024 4:55 PM CDT 01/01/2024 4:55 PM CDT Dipesh Florez MD LAB_1 Performing Organization Address [facility]/ZIP Co de Phone Number [facility] [address] [place] [address] * C-Reactive Protein (01/01/2024 4:55 PM CDT) C-Reactive Protein <0.5 0.0 - 0.5 mg/dL 01/01/2024 6:42 PM CDT [facility] Blood Venipuncture / Unknown 01/01/2024 4:55 PM CDT 01/01/2024 4:55 PM CDT Dipesh Florez MD LAB_1 [facility] [address] [place] [address] * Vaginitis Panel (01/01/2024 4:29 PM CDT) Pathologist [facility] Bacterial Vaginosis Negative Negative 01/02/2024 3:05 PM CDT [facility] Shae species Negative Negative 3:05 PM CDT [facility] Shae glabrata Negative Negative 01/02/2024 3:05 PM CDT [facility] Trichomonas vaginalis Negative Negative 01/02/2024 3:05 PM CDT [facility] Swab STD SPECIMEN FROM VAGINA / Unknown Non-blood Collection / Unknown 01/01/2024 4:29 PM CDT 01/01/2024 7:09 PM CDT Narrative [facility] - 01/02/2024 3:05 PM CDT Test performed by [employer] Worker Mediated Amplification (TMA). Dipesh Florez MD LAB_1 Performing Organization Address [facility] Co de Phone Number [facility] [address] * Hgb A1C (05/01/2023 11:32 AM CDT) Pathologist [facility] Hemoglobin A1C 5.4 <=5.6 % 05/01/2023 8:44 PM CDT [facility] Estimated Average Glucose (Calc) 108 < 117 mg/dL 05/01/2023 8:44 PM CDT [facility] Comment:Estimated average gl ucose (eAG) converts A1c into glucose units (mg/dL) and estimates average glucose over the past approximately 3 months. The eAG reference interval (<117 mg/dL) corresponds to an A1c of <5.7%. Blood Venipuncture / Unknown 05/01/2023 11:32 AM CDT 05/01/2023 11:32 AM CDT Dipesh Florez MD LAB_1 Performing Organization Address [facility]/ZIP Co de Phone Number [facility] [address] [phone] * Endoscopy, colon, diagnostic (06/22/2022 2:51 PM CDT) 06/22/2022 2:51 PM CDT Narrative [facility] ([facility]) - 06/22/2022 2:51 PM CDT Patient Name: Bel Qureshi Procedure Date: 06/22/2022 2:51 PM Date of : 1985 Admit Type: Outpatient Age: 36 Gender: Female Note Status: Finalized Attending MD: Dipesh Carvajal , Procedure: ? Colonoscopy Indications: ? Last colonoscopy: July 2020, ? Generalized abdominal pain, ? Abdominal pain in the left lower ? quadrant, Abdominal pain in the ? right lower quadrant, Rectal pain Providers: ? Thea Paulinolise Reeveshina Patient Profile: ? 36-year-old female who presented ? for colonoscopy after she was seen ? in GI Clinic in 03/2022 and after ? MyChart correspondence dated ? 06/2022. Of note, she has a history ? of adenomatous colon polyps dating ? 03/2020 with a recommendation to ? have a repeat colonoscopy in five ? years. Please see the recent GI ? clinic notes for complete details. Referring MD: ?Camryn Stevens NP, Dipesh Connor. ? Florez Medicines: ? Midazolam 3 mg IV, Fentanyl 150 ? micrograms IV Complications: ? No immediate complications. Procedure: ? After I obtained informed consent, ? the scope was passed under direct ? vision. Throughout the procedure, ? the patient's blood pressure, ? pulse, and oxygen saturations were ? monitored continuously. The ? [id number] was introduced through ? the anus and advanced to the ? terminal ileum, with identification ? of the appendiceal orifice and IC ? valve. The colonoscopy was ? performed without difficulty. The ? patient tolerated the procedure ? well. The quality of the bowel ? preparation was good. Findings: ? Hemorrhoids were found on perianal exam. ? The terminal ileum appeared normal. ? Retroflexion in the right colon was performed. ? A 5 mm polyp was found in the sigmoid colon. The ? polyp was semi-sessile. The polyp was removed with a ? cold snare. Resection and retrieval were complete. ? Verification of patient identification for the ? specimen was done. Estimated blood loss was minimal. ? A 6 mm polyp was found in the proximal rectum. The ? polyp was semi-pedunculated. The polyp was removed ? with a cold snare. Resection and retrieval were ? complete. Verification of patient identification for ? the specimen was done. For hemostasis, one hemostatic ? clip was successfully placed. There was no bleeding ? at the end of the procedure. Estimated blood loss was ? minimal. ? The exam was otherwise normal throughout the examined ? colon. Moderate Sedation: ? Moderate (conscious) sedation was administered by the ? endoscopy nurse and supervised by the endoscopist. ? The following parameters were monitored: oxygen ? saturation, heart rate, blood pressure, and response ? to care. Total physician intraservice time was 13 ? minutes. ? This time is the duration from the initial medication ? administration until the neurology technologist assists with ? initial maneuvers (biopsy / polypectomy / etc.), or ? if no maneuvers are performed, until the endoscopist ? leaves the room. Impression: ?- Hemorrhoids found on perianal ? exam. ? - The examined portion of the ileum ? was normal. ? - One 5 mm polyp in the sigmoid ? colon, removed with a cold snare. ? Resected and retrieved. ? - One 6 mm polyp in the proximal ? rectum, removed with a cold snare. ? Resected and retrieved. Clip was ? placed. ? - It is possible the hemorrhoids on ? today's examination are ? contributing to the patient's ? proctalgia. ? - There were no endoscopic findings ? on today's examination to explain ? the patient's abdominal pain. Recommendation: ?- Discharge patient to home. ? - Await pathology results. ? - Repeat colonoscopy for ? surveillance based on pathology ? results. ? - Return to GI clinic as previously ? scheduled. ? - Return to primary care physician ? as previously scheduled. ? - The findings and recommendations ? were discussed with the patient. Procedure Code(s): ? --- Professional --- ? 30384, Colonoscopy, flexible; with ? removal of tumor(s), polyp(s), or ? other lesion(s) by snare technique ? G0500, Moderate sedation services ? provided by the same physician or ? other qualified health care ? professional performing a ? gastrointestinal endoscopic service ? that sedation supports, requiring ? the presence of an independent ? trained observer to assist in the ? monitoring of the patient's level ? of consciousness and physiological ? status; initial 15 minutes of ? intra-service time; patient age 5 ? years or older (additional time may ? be reported with 58157, as ? appropriate) Diagnosis Code(s): ? --- Professional --- ? K64.9, Unspecified hemorrhoids ? K63.5, Polyp of colon ? K62.1, Rectal polyp ? R10.84, Generalized abdominal pain ? R10.32, Left lower quadrant pain ? R10.31, Right lower quadrant pain ? K62.89, Other specified diseases of ? anus and rectum CPT copyright 2020 [employer]. All rights reserved. The codes documented in this report are preliminary and upon process control operator review may be revised to meet current compliance requirements. Dipesh Carvajal, 06/22/2022 3:24:59 PM Number of Addenda: 0 Note Initiated On: 06/22/2022 2:51 PM ? Endoscopy Report Procedure Note Dipesh Carvajal MD - 06/22/2022 Patient Name: Bel Qureshi Procedure Date: 06/22/2022 2:51 PM Date of : 1985 Admit Type: Outpatient Age: 36 Gender: Female Note Status: Finalized Attending MD: Dipesh Carvajal , Procedure: Colonoscopy Indications: Last colonoscopy: July 2020, Generalized abdominal pain, Abdominal pain in the left lower quadrant, Abdominal pain in the right lower quadrant, Rectal pain Providers: Sruthi Paulino Patient Profile: 36-year-old female who presented for colonoscopy after she was seen in GI Clinic in 03/2022 and after [facility] correspondence dated 06/2022. Of note, she has a history of adenomatous colon polyps dating 03/2020 with a recommendation to have a repeat colonoscopy in five years. Please see the recent GI clinic notes for complete details. Referring MD: Camryn Stevens NP, Dipesh Florez Medicines: Midazolam 3 mg IV, Fentanyl 150 micrograms IV Complications: No immediate complications. Procedure: After I obtained informed consent, the scope was passed under direct vision. Throughout the procedure, the patient's blood pressure, pulse, and oxygen saturations were monitored continuously. The [id number] was introduced through the anus and advanced to the terminal ileum, with identification of the appendiceal orifice and IC valve. The colonoscopy was performed without difficulty. The patient tolerated the procedure well. The quality of the bowel preparation was good. Findings: Hemorrhoids were found on perianal exam. The terminal ileum appeared normal. Retroflexion in the right colon was performed. A 5 mm polyp was found in the sigmoid colon. The polyp was semi-sessile. The polyp was removed with a cold snare. Resection and retrieval were complete. Verification of patient identification for the specimen was done. Estimated blood loss was minimal. A 6 mm polyp was found in the proximal rectum. The polyp was semi-pedunculated. The polyp was removed with a cold snare. Resection and retrieval were complete. Verification of patient identification for the specimen was done. For hemostasis, one hemostatic clip was successfully placed. There was no bleeding at the end of the procedure. Estimated blood loss was minimal. The exam was otherwise normal throughout the examined colon. Moderate Sedation: Moderate (conscious) sedation was administered by the endoscopy nurse and supervised by the endoscopist. The following parameters were monitored: oxygen saturation, heart rate, blood pressure, and response to care. Total physician intraservice time was 13 minutes. This time is the duration from the initial medication administration until the neurology technologist assists with initial maneuvers (biopsy / polypectomy / etc.), or if no maneuvers are performed, until the endoscopist leaves the room. Impression: - Hemorrhoids found on perianal exam. - The examined portion of the ileum was normal. - One 5 mm polyp in the sigmoid colon, removed with a cold snare. Resected and retrieved. - One 6 mm polyp in the proximal rectum, removed with a cold snare. Resected and retrieved. Clip was placed. - It is possible the hemorrhoids on today's examination are contributing to the patient's proctalgia. - There were no endoscopic findings on today's examination to explain the patient's abdominal pain. Recommendation: - Discharge patient to home. - Await pathology results. - Repeat colonoscopy for surveillance based on pathology results. - Return to GI clinic as previously scheduled. - Return to primary care physician as previously scheduled. - The findings and recommendations were discussed with the patient. Procedure Code(s): --- Professional --- 05738, Colonoscopy, flexible; with removal of tumor(s), polyp(s), or other lesion(s) by snare technique G0500, Moderate sedation services provided by the same physician or other qualified health daycare provider performing a gastrointestinal endoscopic service that sedation supports, requiring the presence of an independent trained observer to assist in the monitoring of the patient's level of consciousness and physiological status; initial 15 minutes of intra-service time; patient age 5 years or older (additional time may be reported with 86002, as appropriate) Diagnosis Code(s): --- Professional --- K64.9, Unspecified hemorrhoids K63.5, Polyp of colon K62.1, Rectal polyp R10.84, Generalized abdominal pain R10.32, Left lower quadrant pain R10.31, Right lower quadrant pain K62.89, Other specified diseases of anus and rectum CPT copyright 2020 [employer]. All rights reserved. The codes documented in this report are preliminary and upon process control operator review may be revised to meet current compliance requirements. Dipesh Carvajal, 06/22/2022 3:24:59 PM Number of Addenda: 0 Note Initiated On: 06/22/2022 2:51 PM Endoscopy Report Camryn Stevens APRN, FINANCE ADMIN PN GI PROCED URE ORDERABLES Performing Organization Address City/[facility]/ZIP Co de Phone Number GI ([facility]) [place], [place] * Hepatitis Panel with Reflex to Confirmation (04/25/2022 4:22 PM CDT) Hepatitis A Antibody, IgM Negative (Non Reactive) Negative (Non Reactive) 04/25/2022 10:01 PM CDT [facility] Comment:IgM anti-HAV not det ected. Does not exclude the possibility of exposure to or infection with HAV. Levels of IgM anti-HAV may be below the cut-off in early infection. Hepatitis Bc Antibody,IgM Negative (Non Reactive) Negative (Non-Reacti ve) 04/25/2022 10:01 PM CDT [facility] Comment:IgM anti-HBc not det ected. Does not exclude the possibility of exposure to or infection with HBV. Hepatitis B Surface Antigen Negative (Non Reactive) Negative (Non Reactive) 04/25/2022 10:01 PM CDT [facility] Hepatitis C Antibody Negative (Non Reactive) Negative (Non Reactive) 04/25/2022 10:01 PM CDT [facility] Comment:Antibodies to HCV no t detected. Does not exclude the possiblity of exposure to HCV. Blood Venipuncture / Unknown 04/25/2022 4:22 PM CDT 04/25/2022 4:23 PM CDT Camryn Stevens APRN, CNP LAB_1 [facility] [address] * HIV 1/2 Ag/Ab 4th Generation (04/25/2022 4:22 PM CDT) [facility] HIV 1/2 Antigen/Antib hernan (4th generation) Negative (Non Reactive) Negative (Non Reactive) 04/25/2022 9:58 PM CDT [facility] Comment:HIV-1 p24 Antigen an d HIV-1/HIV-2 Antibody not detected Blood Venipuncture / Unknown 04/25/2022 4:22 PM CDT 04/25/2022 4:23 PM CDT Camryn Stevens APRN, FINANCE ADMIN LAB_1 [facility] [address] * Pap Smear (03/15/2006 9:32 AM CDT) [facility] PAP Smear Liquid Based SEE TEXT No normal range HP CONVERSION Comment: Patient: BEL LEONARD ? CERVICAL CYTOLOGY REPORT Pathology # ??[id number] ?Date Obtained: ? Date Received: CYTOLOGIC IMPRESSION: Negative for intraepithelial lesion or malignancy. Verified 03/27/06 by: ??S_V ?(electronic signature) ? ADDITIONAL DATA LMP: ? CLINICAL HIST LIQUID BASED PAP CERVICAL SPECIMEN ADEQUACY: ?? Satisfactory. ENDOCERVICAL CELLS: ??Present. 03/15/2006 9:32 AM CDT Cathie Maynor Wilson BUSINESS SERVICES COORDINATOR, FINANCE ADMIN LAB_1 HP CONVERSION from Last 3 Months or Most Recently Relevant to Health Maintenance Care Teams Cnc Supervisor Relationship Specialty [place] [address] [place] ELISSA Fried [address] PCP - General Family Practice 08/19/19
--- OUTSIDE RECORDS SUMMARY | 2024-03-12 16:10 | XMS_ITS | Encounter Summary ---
[facility] Organization [facility] Address [address] [place] [address] Care Team Providers Care Grab Jack Worker Name Role Phone Dipesh Florez MD Primary Care Provider Reason for Visit * Reason Comments Eye Problem * Consult/Transfer Care (Routine) - New Request Specialty Diagnoses / Procedures Referred By Enoch pfeiffer Referred To Contact Diagnoses Hordeolum externum of right lower eyelid Jakob Casas, CLIENT CARE COORDINATOR, FILM FLAT INSPECTOR [address] [place] [address] Referral ID Status Reason Start Date Expiration Date V isits Requested Visits Authorized [id number] New Request 01/28/2024 04/28/2025 1 1 Encounter Details Date Type Department Care Team (Late st Contact Info) Description 01/28/2024 3:40 PM CDT Office Visit [facility] [address] [facility], [address] [place] [address] Dipesh Arcos, OD [address] [place] [address] Hordeolum externum of right lower eyelid (Primary Dx) Social History Tobacco Use Types Packs/Day Years Used Date Smoking Tobacco: Former Cigarettes Q uit: 2007 Smokeless Tobacco: Never Tobacco Cessation:Counseling Given: Not Answered Comments:Marijuana Alcohol Use Standard Drinks/Week Comments Yes 0 (1 standard drink = 0.6 oz pur e alcohol) 1-5 a month PHQ-2 Answer Date Recorded PHQ-2 Score 4 03/27/2023 Sex and Gender Information Value Date Recorded Sex Assigned at Not on file Gender Identity Not on file Sexual Orientation Not on file documented as of this encounter Patient Instructions * Patient Instructions* Dipesh Arcos, OD - 01/28/2024 3:40 PM CDT Outpatient ordered medications Medication Sig moxifloxacin (VIGAMOX) 0.5 % eye drop solution Place 1 Drop into right eye 4 times a day for 7 days. 1 drop 4 times a day for 5-7 days. Artificial tears 1 drop 4 times a day or as needed. Check your peripheral vision daily. Use a warm compress for 15 minutes, at least once daily. Soak a washcloth in warm water and seal itin a plastic bag. Close your eyes and place the compress on your eyes for 15 minutes. If you want to see an fx artist at [facility], schedule with Dr. Cherry or Dr. Diaz. If you have questions, you can send me a message through [employer] or call [phone]. Call [phone] or [phone] (after hours) with any new or worsening eye symptoms. documented in this encounter Progress Notes * Dipesh Arcos, OD - 01/28/2024 3:40 PM CDT Bel Qureshi is being seen today for RLL stye. UC tried to drain. UC poked through lid causing blood to leak over eye. Inside lower lid is very red. Pt states that both eye and lid are very sore. Ptstates that when the drainage was attempted her VA were very blurry, this has resolved some but still getting patches of blurriness. Pt has been doing warm compresses through out the day for they 1-2weeks. Patient is alert and feels well. ICD-10-CM 1. Hordeolum externum of right lower eyelid H00.012 Discussed findings with patient. Start vigamox 4 times a day for 5-7 days. Plan: Patient Instructions Outpatient ordered medications Medication Sig moxifloxacin (VIGAMOX) 0.5 % eye drop solution Place 1 Drop into right eye 4 times a day for 7 days. 1 drop 4 times a day for 5-7 days. Artificial tears 1 drop 4 times a day or as needed. Check your peripheral vision daily. Use a warm compress for 15 minutes, at least once daily. Soak a washcloth in warm water and seal itin a plastic bag. Close your eyes and place the compress on your eyes for 15 minutes. If you want to see an fx artist at [facility], schedule with Dr. Cherry or Dr. Diaz. If you have questions, you can send me a message through [employer] or call [phone]. Call [phone] or [phone] (after hours) with any new or worsening eye symptoms. If not improving, she will see an fx artist at [facility]. documented in this encounter Plan of Treatment Upcoming Encounters Date Type Department Care Team (Late st Contact Info) Description 03/14/2024 3:15 PM CDT Appointment [facility] [id number] [place] [address] [phone] [place] [address] [place] [address] 03/27/2024 1:45 PM CDT Appointment [facility] [address] [facility] [address] [place] [phone] Paras Hardy, PASamirC [address] [place] [address] 04/10/2024 3:30 PM CDT Appointment [facility] [address] Vascular Surgery [address] [place] [phone] Rupesh Figueroa MD [address] [place] [address] 04/18/2024 11:10 AM CDT Appointment [facility] [place] [address] [place] [place] [phone] Loreta Siegel, OD [address] [place], [place] [phone] 05/23/2024 9:50 AM CDT Telemedicine [facility] [address] [place], [place] [phone] Claudia Roach, CLIENT CARE COORDINATOR, FILM FLAT INSPECTOR [address] [place], [place] [address] documented as of this encounter Visit Diagnoses Diagnosis Hordeolum externum of right lower eyelid- Primary Hordeolum externum documented in this encounter Care Teams Grab Jack Worker Relationship Specialty [place] [address] [place] [id number] PCP - General Family Practice 08/19/19 documented as of this encounter
--- OUTSIDE RECORDS SUMMARY | 2024-03-12 16:10 | XMS_ITS | Encounter Summary ---
Author Organization [facility] Address [address] [place] [address] Care Team Providers Care Meat Seafood Associate Name Role Phone Dipesh Florez MD Primary Care Provider [phone] Reason for Visit * Reason Comments Follow-up Encounter Details Date Type Department Care Team (Late st Contact Info) Description 02/21/2024 1:50 PM CDT Office Visit [facility] [address] [place] [address] Claudia Roach, STRAND AND BINDER CONTROLLER, FIRE BATTALION CHIEF [address] [place] [address] Irritable bowel syndrome, unspecified type (Primary Dx) Social History Tobacco Use Types [...] Sign Reading Time Taken Comments Blood Pressure - - Pulse - - Temperature - - Respiratory Rate - - Oxygen Saturation - - Inhaled Oxygen Concentration - - Weight 96.3 kg (212 lb 4.8 oz) 02/21/2024 1:57 P M CDT Height 175.3 cm (5' 9) 02/21/2024 1:57 PM CDT Body Mass Index 31.35 02/21/2024 1:57 PM CDT documented in this encounter Patient Instructions * Patient Instructions* Claudia Roach APRN, CNP - 02/21/2024 1:50 PM CDT Today you were seen for a follow up regarding IBS. Plan: Take the Levsin every 6 hours as needed. Consider alternative therapy such as acupuncture. Work on coping mechanisms to decrease stress. Continue to avoid known trigger foods. Decrease fiber to 1 capsule daily. Follow up in 3 months. documented in this encounter Progress Notes * Claudia Roach APRN, CNP - 02/21/2024 1:50 PM CDT GI Clinic Progress Note Name: Bel Qureshi CSN: [id number] : 1985 Date of Visit: 02/21/24 CHIEF COMPLAINT: IBS HISTORY OF PRESENT ILLNESS: Bel Qureshi is a 38 y.o. female seen in clinic for a follow-up regarding the above complaint. Bel has had symptoms of irritable bowel since she was about 15. Usually can be managed with diet and exercise. Denies any fever, chills, nausea or vomiting. Intermittent episodes of heartburn reflux and takes Mylanta and Tums as needed. Denies any dysphagia or odynophagia. Intermittent early satiety. Bloating typically occurs after eating Continues to experience abdominal discomfort located in the upper and lower abdomen. Pain can be sharp. Bowel habit described as irregular varying between Odin stool scale type 4 and type 6. Sensation of incomplete emptying. History of anal fissures. Has been taking Citrucel tablets daily. No melena or hematochezia. Prior workup has included an upper endoscopy 06/17/2021 exam noted normal mucosa in the entire esophagus. Biopsies were without diagnostic abnormality. Last colonoscopy 07/23/2020 for left lower quadrant pain, constipation/diarrhea. Exam noted normal terminal ileum 4 polyps were removed. Nonbleeding external hemorrhoids. Biopsies noted tubular adenoma and hyperplastic polyps. Recommended follow-up in 5 years. Has PCOS. Family history is negative for celiac disease, Crohn's, ulcerative colitis, stomach or colon cancer. She has 3 children, 2 were vaginal births, and 1 was by . Indicates she has been referred to pelvic floor physical therapy by OB gynecology as well as GI in the past. She has never completed. Prior history of fecal incontinence after childbirth. Current medications, allergies, medical problems, family and social histories reviewed and updated as indicated. O: Review of Systems - Negative except as given in the HPI. PMH: Past Medical History: Diagnosis Date Irritable bowel syndrome Migraines PCOS (polycystic ovarian syndrome) ([facility]) PSH: Past Surgical History: Procedure Laterality Date CARPAL TUNNEL RELEASE LW Problem: Carpal Tunnel Release s/p LW Modifier: bilaterally CORNEAL SURGERY LASIK TONSILLECTOMY Outpatient Meds: Outpatient Medications Prior to Visit Medication Sig Dispense Refill acetaminophen (TYLENOL) 325 MG tablet Take 2 Tablets (650 mg) by mouth 4 times a day. 100 Tablet 11 ALBUterol sulfate HFA 108 (90 Base) MCG/ACT inhaler Inhale 1-2 Puffs every 4 hours as needed for Wheezing. 1 Each 1 azelastine (ASTELIN) 0.1 % nasal solution Place 1 [place] into both nostrils two times a day. [...] route. No facility-administered medications prior to visit. Family History Problem Relation Age of Onset [...] Family History Amblyopia/Strabismus Negative Family History Social History Tobacco Use Smoking status: Former Current packs/day: 0.00 Types: Cigarettes Quit date: 2006 Years since quittin.4 Smokeless tobacco: Never Tobacco comments: Marijuana Vaping Use Vaping status: Some Days Substances: THC, CBD Substance Use Topics Alcohol use: Not Currently Comment: 1-5 a month Drug use: Yes Types: Marijuana Comment: a couple times a week. PE: Vitals: 02/21/24 1357 Weight: 212 lb 4.8 oz (96.3 kg) General appearance: alert, cooperative, no distress, appears stated age, Eyes: conjunctivae/corneasclear. Abdomen: soft, non-tender; bowel sounds normal; Skin: Warm, dry and Neurologic: Grossly normal LABS: Lab Results Component Value Date WBC 4.8 01/01/2024 Hemoglobin 13.5 01/01/2024 HCT 40.1 01/01/2024 MCV 89.5 01/01/2024 Platelets 294 01/01/2024 Lab Results Component Value Date Alkaline Phosphatase 70 01/01/2024 Bilirubin, Total 1.7 (H) 01/01/2024 Bilirubin, Direct 0.6 (H) 01/01/2024 Protein, Total 7.5 01/01/2024 Albumin 4.1 01/01/2024 AST (SGOT) 18 01/01/2024 ALT (SGPT) 14 01/01/2024 Lab Results Component Value Date Sodium 139 01/01/2024 Potassium 4.6 01/01/2024 Chloride 105 01/01/2024 CO2 25 01/01/2024 Lab Results Component Value Date Creatinine 0.78 01/01/2024 IMAGING Reviewed in [facility] and Care Everywhere IMPRESSION/PLAN 38-year-old female seen in clinic today for follow-up regarding IBS. Symptoms can include abdominalbloating, abdominal pain, and alternating bowel habits. IBS Take the Levsin every 6 hours as needed. Consider alternative therapy such as acupuncture. Work on coping mechanisms to decrease stress. Continue to avoid known trigger foods. Decrease fiber to 1 capsule daily. Follow up in 3 months. Total time for the visit was 40 minutes including, but not limited to, ehs-tcih-oy-face time spent reviewing records, counseling, and coordination of care. Patient is agreeable to the plan of care, and is aware to contact the GI Clinic or their primary provider if symptoms change or worsen significantly. documented in this encounter Plan of Treatment Upcoming Encounters Date Type Department Care Team (Late st Contact Info) Description 03/14/2024 3:15 PM CDT Appointment [facility] [address] [place] [address] [place] [address] [place], [place] [phone] 03/27/2024 1:45 PM CDT Appointment [facility] [address] [facility], Nose, and Thro[facility] [address] [place] [phone] Paras Hardy, PAAlejandro [address] [place] [address] 04/10/2024 3:30 PM CDT Appointment [facility] [address] V[facility] Surgery [address] [place] [phone] Rupesh Figueroa MD [address] [place] [address] 04/18/2024 11:10 AM CDT Appointment [facility] [place] [address] [place] [phone] Loreta Siegel OD [address] [place], [place] [phone] 05/23/2024 9:50 AM CDT Telemedicine [facility] [address] [place] [address] Claudia Roach APRN, CNP [address] [place] [address] documented as of this encounter Visit Diagnoses Diagnosis Irritable bowel syndrome, unspecified type- Primary documented in this encounter Care Teams Meat Seafood Associate Relationship Specialty [place] [address] [place] ELISSA Fried [id number] PCP - General Family Practice 08/19/19 documented as of this encounter
--- OUTSIDE RECORDS SUMMARY | 2024-03-12 16:10 | XMS_ITS | Encounter Summary ---
Author Organization [facility] Address [address], [place] [address] Care Team Providers Care Combine Inspector Name Role Phone Dipesh Florez MD Primary Care Provider [phone] Reason for Referral * Consult/Transfer Care (Routine) - New Request Specialty Diagnoses / Procedures Referred By Enoch pfeiffer Referred To Contact Diagnoses Right leg swelling Leah Blum MD [address] [place] [address] Referral ID Status Reason Start Date Expiration Date V isits Requested Visits Authorized [id number] New Request 03/03/2024 06/02/2025 1 1 Scheduling Instructions Your clinician has recommended an appointment with [facility]. You can quickly make your appointment online at [employer]/schedule. You can also call [phone] for help scheduling your appointment. We suggest you call your health insurance company about your coverage and benefits for this appointment. Question Answer Appointment Urgency? Within 1 Week (Urgent) Comments R leg weakness and heaviness and tingling * Procedure/Equipment (Routine) - Incomplete Specialty Diagnoses / Procedures Referred By Enoch pfeiffer Referred To Contact Diagnoses Right leg swelling Procedures VL US Lower Extremity Rt Venous Reflux Leah Blum MD [address] [place] [address] Referral ID Status Reason Start Date Expiration Date V isits Requested Visits Authorized [id number] Incomplete 03/03/2024 06/02/2025 1 1 * Consult/Transfer Care (Routine) - New Request Specialty Diagnoses / Procedures Referred By Enoch pfeiffer Referred To Contact Diagnoses Right leg swelling Leah Blum MD [address] [place] [address] Referral ID Status Reason Start Date Expiration Date V isits Requested Visits Authorized [id number] New Request 03/03/2024 06/02/2025 1 1 Scheduling Instructions Your clinician has recommended an appointment with [facility]. You can quickly make your appointment online at [employer]. You can also call [phone] for help scheduling your appointment. We suggest you call your health insurance company about your coverage and benefits for this appointment. Question Answer Appointment Urgency? Non-Urgent * Procedure/Equipment (Routine) - Incomplete Specialty Diagnoses / Procedures Referred By Enoch pfeiffer Referred To Contact Diagnoses Right leg swelling Procedures US Venous Right Lower Extrem Doppler Leah Blum MD [address] [place] [address] Referral ID Status Reason Start Date Expiration Date V isits Requested Visits Authorized [id number] Incomplete 03/03/2024 06/02/2025 1 1 Reason for Visit * Reason Comments LEG PAIN Burning sensation in right lower leg, swelling, throbbing, 3 weeks, getting worse in the last 3 days Encounter Details Date Type Department Care Team (Late st Contact Info) Description 03/03/2024 2:20 PM CDT Office Visit [facility] [id number] [facility] [address] [place] [phone] Leah Blum MD [address] [place] [address] Right leg swelling Social History Tobacco Use Types Packs/Day Years [...] CDT Inhaled Oxygen Concentration - - Weight - - Height - - Body Mass Index - - documented in this encounter Patient Instructions * Patient Instructions* Leah Blum MD - 03/03/2024 2:20 PM CDT Avoid salt. Wear compression stockings on am off pm. Elevate legs above your heart for 30 minutes several times per day * Attachments The following attachments cannot be sent through Care Everywhere. * Venous Insufficiency: General Info (Icelandic) documented in this encounter Progress Notes * Leah Blum MD - 03/03/2024 2:20 PM CDT Nursing Notes: Etelvina Zuniga I RN 03/03/24 1411 Addendum Bel Qureshi is a 38 y.o.female presents to the Urgent Care for LEG PAIN (Burning sensation in right lower leg, swelling, throbbing, 3 weeks, getting worse in the last 3 days ) Some calf pain, no discoloration No hx of DVT SUBJECTIVE: Bel Qureshi is a 38 y.o.female presents to for evaluation of Chief Complaint Patient presents with LEG PAIN Burning sensation in right lower leg, swelling, throbbing, 3 weeks, getting worse in the last 3 days . HPI: These leg symptoms have been present for the last 3 week(s) but worse the last 3 days. Assoc symptoms include: there is tingling of the anterior lower leg and it seems to swell some. She has been wearing compression stockings. She is on her feet a lot for work. She feels like it feels heavy. She also has some lower back pain on the right and some in the posterior thigh. Social/Family History, Past Medical/Surgical History, Medications and Allergies have all been reviewed in [facility]. Social History Tobacco Use Smoking status: Former Current packs/day: 0.00 Types: Cigarettes Quit date: 2006 Years since quittin.4 Smokeless tobacco: Never Tobacco comments: Marijuana Substance Use Topics Alcohol use: Not Currently Comment: 1-5 a month ROS: Complete ROS was negative other than what was cited above. OBJECTIVE: Vital Signs: BP 123/73 (BP Location: Right Arm, BP Cuff Size: Regular) Pulse 97 Temp 37.3 ??C (99.1 ??F) (Oral) Resp 15 SpO2 100% General: Well developed and nourished. HEENT: Normocephalic and atraumatic. Musc: she is able to rise on heels and toes. The calf does seem a little bigger right than left andsome slight varicose veins anterior right lower leg more so than left. Skin: Warm and dry LABS: No results found for any visits on 03/03/24. IMAGING: US Venous Right Lower Extrem Doppler Result Date: 03/03/2024 COMPARISON: None. CLINICAL HISTORY: leg swelling and pain for 3 weeks FINDINGS: The venous system of the right lower extremity was visualized using color-flow Doppler technique. The common femoral, proximal deep femoral, femoral, popliteal, and visualized portions of the posterior tibial and peroneal veins show normal compressibility, color flow, and response to augmentation. The great saphenous vein compresses normally. SCHULZ'S CYST: No IMPRESSION: No evidence of deep venous thrombosis. Small calf vein thrombosis cannot be completely excluded by this technique. CT Neck Soft Tissue WO IV Cont Result Date: 02/02/2024 For Patients: As a result of the 21st Century Cures Act, medical imaging exams and procedure reports are released immediately into your electronic medical record. You may view this report before yourreferring provider. If you have questions, please contact your health care provider. EXAM: CT NECK SOFT TISSUE WO LOCATION: THE URGENCY ROOM [facility] DATE: 02/02/2024 INDICATION: Sore throat and gland swelling since November after having influenza. Pain/swelling episodically worse with episodic swellingat the angle of the mandible/submandibular right greater than left. Scheduled to see ENT. Allergy to IV contrast. COMPARISON: Contrast-enhanced CT neck 08/05/2020. TECHNIQUE: Routine CT Soft Tissue Neck without IV contrast. Multiplanar reformats. Dose reduction techniques were used. FINDINGS: MUCOSAL SPACES/SOFT TISSUES: Beam hardening/streak artifact from dental amalgam locally obscures assessment. Allowing for artifact, visualized tongue, mucosal space, and airway are otherwise unremarkable. Retropharyngeal, parapharyngeal and site lead spaces are unremarkable. Glottic and paraglottic structures are unremarkable for noncontrast enhanced technique. Teeth are unremarkable. Temporomandibular joints are intact. LYMPH NODES: Small bilateral cervical chain lymph nodes are present, similar inappearance to the 08/05/2020 prior. No low-attenuation nodes are present. SALIVARY GLANDS: Normal parotid and submandibular glands. THYROID: Normal. VISUALIZED INTRACRANIAL/ORBITS/SINUSES: No abnormality of the visualized intracranial compartment or orbits. Visualized paranasal sinuses and mastoid air cells are clear. OTHER: No destructive osseous lesion. The included lung apices are clear. 1. No abnormal neck masses or collections. No cervical lymphadenopathy. MDM: first we did an ultrasound to rule out DVT given the swelling and vein appearance and referralwas placed for vascular specialist but then questioned her more about the feeling of heaviness and found out she feels that she has some pain in the low back and posterior thigh so placed a referral to PMR because it may be radicular pain and asked her to schedule that first and vascular second. ASSESSMENT: Final diagnoses: [M79.89] Right leg swelling PLAN: Orders Placed This Encounter US Venous Right Lower Extrem Doppler VL US Lower Extremity Rt Venous Reflux Vascular Surgery Consult-Adult Physical Medicine & Rehab Consult-Adult The patient was discharged ambulatory and in stable condition. Patient Instructions Avoid salt. Wear compression stockings on am off pm. Elevate legs above your heart for 30 minutes several times per day Written discharge instructions as well as verbal were given. Leah Blum MD documented in this encounter Nursing Notes * Etelvina Zuniga I, RN - 03/03/2024 2:20 PM CDT Bel Qureshi is a 38 y.o.female presents to the Urgent Care for LEG PAIN (Burning sensation in right lower leg, swelling, throbbing, 3 weeks, getting worse in the last 3 days ) Some calf pain, no discoloration No hx of DVT documented in this encounter Plan of Treatment Upcoming Encounters Date Type Department Care Team (Late st Contact Info) Description 03/14/2024 3:15 PM CDT Appointment [facility] [address] [place], [place] [phone] [place] [address] [place], [place] [phone] 03/27/2024 1:45 PM CDT Appointment [facility] [place] [address] [facility], [facility], and Thro[facility] [address] [place] [phone] Paras Hardy, PASamirC [address] [place], [place] [address] 04/10/2024 3:30 PM CDT Appointment [facility] [address] Vascular Surgery [address] [place] [phone] Rupesh Figueroa MD [address] [place], [place] [address] 04/18/2024 11:10 AM CDT Appointment [facility] [address] [place] [phone] Loreta Siegel, OD [address] [place], [place] [phone] 05/23/2024 9:50 AM CDT Telemedicine [facility] [address] [place], [place] [phone] Claudia Roach, FABRIC AWNING REPAIRER, MARKETING DATABASE COORDINATOR [address] [facility] [place] [address] Scheduled Orders Name Type Priority Associated Diagnoses Orde r Schedule VL US Lower Extremity Rt Venous Reflux Imaging New Routine Right leg swelling Expected: 03/03/2024 (Approximate), Expires: 03/03/2025 Scheduled Referrals Name Type Priority Associated Diagnoses Orde r Schedule Vascular Surgery Consult-Adult Referral Routine Right leg swelling Ordered: 03/03/2024 Physical Medicine & Rehab Consult-Adult Referral Routine Right leg swelling Ordered: 03/03/2024 documented as of this encounter Results * US Venous Right Lower Extrem [...] excluded by this technique. Leah Blum MD [facility] documented in this encounter Visit Diagnoses Diagnosis Right leg swelling Right leg swelling documented in this encounter Care Teams Combine Inspector Relationship Specialty Start [place] [address] [place] [address] PCP - General Family Practice 08/19/19 documented as of this encounter
--- OUTSIDE RECORDS SUMMARY | 2024-03-12 16:10 | XMS_ITS | Encounter Summary ---
Author Organization [facility] Address [address], [place] [address] Care Team Providers Care Lamp Inspector Name Role Phone Dipesh Florez MD Primary Care Provider [phone] Reason for Referral * Consult/Transfer Care (Routine) - New Request Specialty Diagnoses / Procedures Referred By Enoch pfeiffer Referred To Contact Diagnoses Hordeolum externum of right lower eyelid Jakob Casas APRN, MEASUREMENT DEPARTMENT CHIEF CLERK [address] [place] [address] Referral ID Status Reason Start Date Expiration Date V isits Requested Visits Authorized [id number] New Request 01/28/2024 04/28/2025 1 1 Scheduling Instructions Your provider has recommended an appointment with [facility]. You may call [phone] for help scheduling your appointment. We suggest you call your health insurance company about your coverage and benefits for this appointment. Question Answer Appointment Urgency? Within 1 Week (Urgent) Reason for Visit * Reason Comments Jacky Encounter Details Date Type Department Care Team (Late st Contact Info) Description 01/28/2024 2:40 PM CDT Office Visit [facility] [address] [place] [address] Jakob Casas APRN, MEASUREMENT DEPARTMENT CHIEF CLERK [address] [place] [address] Hordeolum externum of right lower eyelid Social History Tobacco Use Types Packs/Day Years [...] Sign Reading Time Taken Comments Blood Pressure 132/81 01/28/2024 2:19 PM CDT Pulse 81 01/28/2024 2:19 PM CDT Temperature 37 ??C (98.6 ??F) 01/28/2024 2:19 PM CDT Respiratory Rate 16 01/28/2024 2:19 PM CDT Oxygen Saturation 100% 01/28/2024 2:19 PM CDT Inhaled Oxygen Concentration - - Weight - - Height - - Body Mass Index - - documented in this encounter Progress Notes * Jakob Casas, CART ATTENDANT, MEASUREMENT DEPARTMENT CHIEF CLERK - 01/28/2024 2:40 PM CDT Chief Complaint Eye Pain Patient ID Bel Qureshi 1985 SUBJECTIVE: 38 y.o. female presents to the urgent care with right lower lid stye. She notes she has had a stye for 2 weeks. It was doing some draining on Sunday but has gotten harder and stopped draining. Has also become uncomfortable. Does not have any visual changes. Has been using warm compresses. No other concerns or complaints. Past Medical, Surgical and Social History reviewed on EMR. Medications reviewed on EMR. Allergies: Allergies Allergen Reactions Isovue [Iopamidol] Anaphylaxis, Breathing Difficulty and Chest Pain Iodine Unknown Semaglutide Gastrointestinal Sumatriptan Chest Pain Flushing ROS: As noted in HPI, all other review of systems are negative. Objective: Blood pressure 132/81, pulse 81, temperature 37 ??C (98.6 ??F), temperature source Oral, resp. rate16, last menstrual period 01/04/2024, SpO2 100%. General: Alert, No obvious discomfort, well kept HENT: Normal voice, No lymphadenopathy Eyes: The pupils are equal, round, and reactive to light, No scleral icterus, right lower lid with less than 0.5 cm tender nodule. No active drainage. There is no head on the anterior portion of the lid. No significant surrounding erythema or edema. Appears to be centralized collection that is visualized anteriorly. Neck: Normal range of motion CV: Normal Pulses Resp: Non-labored, No cough MS: Normal muscular tone, moves all extremities Skin: No rash or acute skin lesions noted Neuro: Speech is normal and fluent Psych: Awake. Alert. Normal affect. Appropriate interactions. Good eye contact UC Course: Incision and Drainage Location: Lower right lid stye Anesthesia: No anesthesia indicated Preparation: Cleansed with alcohol Procedure: Single stab with a shielded 22 gauge needle from a low approach bottom portion of stye. Parallel to the eye. The protective sleeve of the needle was cut so that less than 0.5 cm of the needle was exposed. Lower eyelid was pulled up and away from the globe. During procedure patient's eyelid twitching very slightly. This did cause bleeding on the inside of the eyelid. The eye was then examined with fluorescein. There did not appear to be any abrasion or rupture of the globe. Negative Suman sign. No change iris size or shape. Pupils remain equal and reactive to light. ASSESSMENT: Bel Qureshi is a 38 y.o. female presents for evaluation of concerns as noted above. During the attempt at I and D of her stye there was a possible injury to the inner part of the eye. I did not seeany sign of global trauma on evaluation however patient is to be seen by Ophthalmology. She has an appointment in less than an hour in the [place] office and will go directly to the land acquisition manager. Diagnosis and Associated Orders ICD-10-CM 1. Hordeolum externum of right lower eyelid H00.012 Eye Care Consult-Adult/Peds PLAN: New Prescriptions No medications on file Supportive care with motrin. Follow up with primary care physician in 3 - 5 days or sooner with Ophthalmology if symptoms worsen, may return here or go to the ER if worsening or concerns as well. documented in this encounter Nursing Notes * Radha Church, RN - 01/28/2024 2:40 PM CDT Stye under right eye that has been present for the past 2 weeks. Was draining Sunday but has gotten harder again. documented in this encounter Plan of Treatment Upcoming Encounters Date Type Department Care Team (Late st Contact Info) Description 03/14/2024 3:15 PM CDT Appointment [facility] [place] [address] [place], [place] [phone] [place] [address] [place] [address] 03/27/2024 1:45 PM CDT Appointment [facility] [address] Ear, Nose, and Throat [address] [place] [phone] Paras Hardy PA-C [address] [place] [address] 04/10/2024 3:30 PM CDT Appointment [facility] [address]53 Vascular Surgery [address] [place] [phone] Rupesh Figueroa MD [address] [place] [address] 04/18/2024 11:10 AM CDT Appointment [facility] [place] [address] [place] [address] Loreta Siegel OD [address] [place] [address] 05/23/2024 9:50 AM CDT [facility]med[facility] [address] [place] [address] Claudia Roach, CART ATTENDANT, MEASUREMENT DEPARTMENT CHIEF CLERK [address] [place] [address] Scheduled Referrals Name Type Priority Associated Diagnoses Orde r Schedule Eye Care Consult-Adult/Peds Referral Routine Hordeolum externum of right lower eyelid Ordered: 01/28/2024 documented as of this encounter Visit Diagnoses Diagnosis Hordeolum externum of right lower eyelid Hordeolum externum documented in this encounter Care Teams Lamp Inspector Relationship Specialty [place] [address] [facility] [place] [address] PCP - General Family Practice 08/19/19 documented as of this encounter
--- OUTSIDE RECORDS SUMMARY | 2024-03-12 16:10 | XMS_ITS | Encounter Summary ---
Author Organization [facility] Address [address], [place] [address] Care Team Providers Care Financial Accounting Manager Name Role Phone Dipesh Florez MD Primary Care Provider Reason for Visit * Procedure/Equipment (Routine) - Incomplete Specialty Diagnoses / Procedures Referred By Enoch pfeiffer Referred To Contact Diagnoses Mass of lower inner quadrant of right breast Mass of lower inner quadrant of left breast Procedures [facility] Mammogram Diag Bilat W [address] [address] [place] [address] Referral ID Status Reason Start Date Expiration Date V isits Requested Visits Authorized [id number] Incomplete 01/01/2024 04/01/2025 1 1 Encounter Details Date Type Department Care Team (Latest Contact Info) Description 01/21/2024 2:30 PM CDT Ancillary Procedure [facility] 3850 Mammography [address] [facility] [place] [address] [place] [address] [place] [id number] Mass of lower inner quadrant of right breast; Mass of lower inner quadrant of left breast Social History Tobacco Use Types Packs/Day Years [...] 3:15 PM CDT Appointment [facility] [place] [address] [place] [address] [place] [address] [place] [address] 03/27/2024 1:45 PM CDT Appointment [place] [address] Ear, Nose, and Throat [address] [place] [phone] Paras Hardy, PASamirC [address] [place] [address] 04/10/2024 3:30 PM CDT [facility] [address] V[facility] Surgery [address] [place] [phone] Rupesh Figueroa MD [address] [place], [place] [address] 04/18/2024 11:10 AM CDT Appointment [facility] [place] [address] [place] [phone] Loreta Siegel, JEANNA [address] [place] [address] 05/23/2024 9:50 AM CDT [facility] [address] [place], [place] [address] Claudia Roach, REGISTERED RADIOLOGIC TECHNOLOGIST, PRINCIPAL PROCESS ENGINEER [address] [place], [place] [phone] documented as of this encounter Procedures Procedure Name Priority Date/Time Associated Diagnosis Comments [facility] MAMMOGRAM DIAG BILAT W 3D SCOTT Routine 01/21/2024 2:36 PM CDT Mass of lower inner quadrant of right breast Mass of lower inner quadrant of left breast documented in this encounter Results * YM US Breast Bilat (01/21/2024 3:18 PM CDT) [...] up were discussed with the patient. [facility] will attempt to schedule recommended follow [...] follow up were discussedwith the patient. [facility] will attempt to schedulerecommended follow up with [...] up were discussed with the patient. [facility] will attempt to schedule recommended follow up with the patient. Narrative Procedure Note Nowak, Loi R, MD - 01/21/2024 IMPRESSION HISTORY: Bilateral tender [...] follow up were discussedwith the patient. [facility] [place] will attempt to schedulerecommended follow up with the patient. Dipesh Florez MD RAD PIPER documented in this encounter Visit Diagnoses Diagnosis Mass of lower inner quadrant of right breast Mass of lower inner quadrant of left breast Mass of lower inner quadrant of right breast Mass of lower inner quadrant of left breast documented in this encounter Care Teams Financial Accounting Manager Relationship Specialty [place] [address] [place] [address] PCP - General Family Practice 08/19/19 documented as of this encounter
--- OUTSIDE RECORDS SUMMARY | 2024-03-12 16:10 | XMS_ITS | Encounter Summary ---
Author Organization [facility] Address [address] [address] Care Team Providers Care Furnace Setter Name Role Phone Dipesh Florez MD Primary Care Provider [phone] Encounter Details Date Type Department Care Team (Late st Contact Info) Description 12/15/2023 rima Arthur [phone] Social History Tobacco Use Types Packs/Day Years [...] on file documented as of this encounter Progress Notes * FAMILY MEDICINERIMA PROVIDER - 12/15/2023 3:37 PM CDT Rima Treatment Plan Diagnosis Viral Sinusitis Visit Date December 15, 2023 Bel Qureshi Date of : 83 Provider Kaykay Howard, Nurse Practitioner Note From Provider Bel Lopes! Let?? get you feeling better! Based on your current symptoms, your sinus infection iscaused by a virus. You??l start feeling better by decreasing the inflammation and getting the mucusto drain. I expect your cough to improve as we get the mucous to clear as well. I recommend taking ibuprofen 600mg with food every 8 hours around the clock for the next 3 days. I also recommend taking Mucinex (blue & white box) every morning for the next 5-7 days and drinking lots of water to thin drainage. Sterile nasal saline rinses every 2-4 hours while awake and at home. The spray sterilenasal saline rinses can be helpful until you become unblocked and can do the full lavage rinse again. Vicks Vapor Rub on your chest at night, warm compresses on sinuses, steam showers, and a humidifier will also help to clear the mucous. Salt water gargles clear mucous from your throat and help with throat pain and duration of sore throat. Make sure to read your treatment plan below. If your symptoms don?? start to improve, please select Help in your treatment plan to Request a Follow Up and we??l re-evaluate your symptoms. Feel better soon! Take care! Kaykay FITZGERALD, DIRECTOR OF STRATEGIC COMMUNICATIONS, CIGARETTE MAKING MACHINE CATCHER-C Treatment Plan Let?? get you feeling better by using an effective blend of edzd-lvy-vopwbuo products to kick this viral infection. We??l work to reduce your pain and inflammation, help drain that irritating mucus and prevent this from worsening. Because this infection is viral, an antibiotic won?? be effective athelping your pain or treating the virus. If your symptoms don?? improve after 5 days, or if you have questions, select Help to Request a Follow-up and we??l adjust your treatment for free. Order(s) benzonatate 100 mg capsule Take 1-2 capsule oral every night at bedtime as needed Note: for cough. Swallow capsules whole. Keep out of reach of children. Refills: None [facility] [address] [address] [place] [address] Treatment Plan Self Care Tip Topics Inflammation Relief with Ibuprofen Cough Expectorant Ear Pain Warm Packs Steam Therapy Humidify What to Expect Let?? work to help you feel better by reducing your sinus congestion, pain and pressure. Keep in mind, it takes time for your body to fight off a viral sinus infection and you may feel worse before you start feeling better. Your symptoms should start to improve within 5 days from when you first noticed them. If your symptoms don?? begin to improve within this timeframe, select Help in your treatment plan to Request a Follow-up and we??l adjust your treatment for free. What to Watch Out For Give us a call immediately if you experience: ??? Vision changes ??? Redness occurring in the face ??? Worsening pain ??? High fevers My Conditions, Orders, Allergies as of December 15, 2023 Standard condition list Allergic Rhinitis (allergies) anxiety, migraines, pcos Acid Reflux/GERD Polycystic Ovarian Syndrome (PCOS) Anxiety Migraine Headaches Current orders benzonatate (benzonatate) fluticasone propionate (fluticasone propionate) fluconazole (fluconazole) fluconazole (fluconazole) N7-L1-mvorl-V-C6-hbknv-astaxan (L6-V2-pmhfg-P-J4-tfkou-astaxan) Barbie Allergy (fexofenadine) hydroxyzine HCl (hydroxyzine HCl) Allergies sumatriptan (sumatriptan), nasl Imitrex (sumatriptan), nasl [facility] We are an online clinic open 23/04. If you have any questions or comments about this visit, please call or email [email or web address]. documented in this encounter Plan of Treatment Upcoming Encounters Date Type Department Care Team (Late st Contact Info) Description 03/14/2024 3:15 PM CDT Appointment [facility] [place] [address] [place] [address] [place] [address] [place] [address] 03/27/2024 1:45 PM CDT Appointment [facility] [place] [address] Ear, Nose, and Throat [address] [place] [phone] Paras Hardy PA-C [address] [place] [address] 04/10/2024 3:30 PM CDT [facility] [address] Vascular Surgery [address] [place] [address] Rupesh Figueroa MD [address] [place], [place] [address] 04/18/2024 11:10 AM CDT Appointment [facility] [place] [address] [place] [phone] Loreta Siegel, JEANNA [address] [place], [place] [address] 05/23/2024 9:50 AM CDT Telemedicine [facility] [address] [place], [place] [phone] Claudia Roach, DIRECTOR OF STRATEGIC COMMUNICATIONS, FASHION DIRECTOR PARTY PLAN SALES [address] [place], [place] [phone] documented as of this encounter Visit Diagnoses Diagnosis Acute sinusitis, unspecified documented in this encounter Care Teams Furnace Setter Relationship Specialty [place] [address] [place] [address] PCP - General Family Practice 08/19/19 documented as of this encounter
--- OUTSIDE RECORDS SUMMARY | 2024-03-12 16:10 | XMS_ITS | Encounter Summary ---
Author Organization [facility] Address [address] [place] [address] Care Team Providers Care Aircraft Cleaner Name Role Phone Dipesh Florez MD Primary Care Provider Encounter Details Date Type Department Care Team (Latest Contact Info) Description 04/22/1998 Orders Only Padilla Frias [address] [address] Social History Tobacco Use Types Packs/Day Years Used Date Smoking Tobacco: Never Assessed Sex and Gender Information Value Date Recorded Sex Assigned at Not on file Gender Identity Not on file Sexual Orientation Not on file documented as of this encounter Plan of Treatment Upcoming Encounters Date Type Department Care Team (Late st Contact Info) Description 03/14/2024 3:15 PM CDT Appointment [facility] [place] [address] [place] [address] [place] [address] [place] [address] 03/27/2024 1:45 PM CDT Appointment [facility] [place] [address] Ear, Nose, and Throat [address] [place] [phone] Paras Hardy, PASamirC [address] [place] [address] 04/10/2024 3:30 PM CDT Appointment [facility] [place] [address] Vascular Surgery [address] [place] [phone] Rupesh Figueroa MD [address] [place] [address] 04/18/2024 11:10 AM CDT Appointment [facility] [place] [address] [place] [phone] Loreta Siegel OD [address] [place], [place] [address] 05/23/2024 9:50 AM CDT Telemedicine [facility] [address] [place], [place] [address] Claudia Roach, PRIMARY CARE PROVIDER, BREADING MACHINE TENDER [address] [place], [place] [address] documented as of this encounter Visit Diagnoses Not on filedocumented in this encounter Additional Health Concerns Infection Onset Date Last Indicated Resolved Time R/O COVID19 08/06/2020 08/06/2020 08/07/2020 2:29 PM 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
--- OUTSIDE RECORDS SUMMARY | 2024-03-12 16:10 | XMS_ITS | Encounter Summary ---
Author Organization [facility] Address [address] [place] [address] Care Team Providers Care Computational Biologist Name Role Phone Dipesh Florez MD Primary Care Provider [phone] Encounter Details Date Type Department Care Team (Late st Contact Info) Description 12/18/2023 E-Visit Dedicated Special[facility] Sched[facility] Rehab [address] [place] [address] Mychart, [place] [address] Social History Tobacco Use Types Packs/Day Years [...] 3:15 PM CDT Appointment [facility] [address] [address] [place] [address] [place], [place] [phone] 03/27/2024 1:45 PM CDT Appointment [facility] [place] [address] Ear, Nose, and Throat [address] [place] [phone] Paras Hardy, PASamirC [address] [place] [address] 04/10/2024 3:30 PM CDT Appointment [place] [facility] [place] [address] Vascular Surgery [address] [place] [phone] Rupesh Figueroa MD [address] [place], [place] [address] 04/18/2024 11:10 AM CDT Appointment [place] [facility] [place] [address] [place] [phone] Loreta Siegel OD [address] [place], [place] [address] 05/23/2024 9:50 AM CDT Telemedicine [facility] [address] [place], [place] [phone] Claudia Roach, AUTO GARAGE ATTENDANT, SOCIAL WORK JOB TITLES [address] [place], [place] [address] documented as of this encounter Visit Diagnoses Not on filedocumented in this encounter Care Teams Computational Biologist Relationship Specialty Start Date End Date Dipesh Florez MD [address] [place] [address] [place] [address] PCP - General Family Practice 08/19/19 documented as of this encounter
--- OUTSIDE RECORDS SUMMARY | 2024-03-12 16:10 | XMS_ITS | Encounter Summary ---
Author Organization [facility] Address [address] [place] [address] Care Team Providers Care Dairy Cattle Farmer Name Role Phone Dipesh Florez MD Primary Care Provider [phone] Reason for Visit * Procedure/Equipment (Routine) - Incomplete Specialty Diagnoses / Procedures Referred By Enoch pfeiffer Referred To Contact Diagnoses Right leg swelling Procedures US Venous Right Lower Extrem Doppler Leah Blum MD [address] [place] [address] Referral ID Status Reason Start Date Expiration Date V isits Requested Visits Authorized [id number] Incomplete 03/03/2024 06/02/2025 1 1 Encounter Details Date Type Department Care Team (Latest Contact Info) Description 03/03/2024 2:45 PM CDT Ancillary Procedure [facility] [address] [place] [phone] Leah Blum MD [address] [place] [address] Right leg swelling Social History Tobacco Use [...] 3:15 PM CDT Appointment [facility] [place] [address] [place] [address] [place] [address] [place] [address] 03/27/2024 1:45 PM CDT Appointment [facility] [address] Ear, Nose, and Throat [address] [place] [phone] Paras Hardy, PAAlejandro [address] [place], [place] [address] 04/10/2024 3:30 PM CDT Appointment [facility] [address] Vascular Surgery [address] [place] [phone] Rupesh Figueroa MD [address] [place], [place] [address] 04/18/2024 11:10 AM CDT Appointment [facility] [place] [address] [place] [phone] Loreta Siegel OD [address] [place] [address] 05/23/2024 9:50 AM CDT Telemedicine [facility] [address] [place], [place] [phone] Claudia Roach, ROD PILER, FACILITY SERVICE MANAGER [address] [place], [place] [phone] documented as of this encounter Procedures Procedure Name Priority Date/Time Associated Diagnosis Comments US VENOUS RIGHT LOWER EXTREM DOPPLER Routine 03/03/2024 2:37 PM CDT Right leg swelling documented in this encounter Results * US Venous Right [...] excluded by this technique. Leah Blum MD [facility] documented in this encounter Visit Diagnoses Diagnosis Right leg swelling documented in this encounter Care Teams Dairy Cattle Farmer Relationship Specialty [place] [address] [place] [address] PCP - General Family Practice 08/19/19 documented as of this encounter
--- OUTSIDE RECORDS SUMMARY | 2024-03-12 16:10 | XMS_ITS | Encounter Summary ---
Author Organization [facility] Address [address] [place] [address] Care Team Providers Care Client Administrator Name Role Phone Dipesh Florez MD Primary Care Provider [phone] Encounter Details Date Type Department Care Team (Latest Contact Info) Description 09/22/1998 Orders Only Jf Gee MD [address] [facility] 25992M [place] [address] Social History Tobacco Use Types Packs/Day Years [...] 3:15 PM CDT Appointment [facility] [address] [address] [place] [address] [place] [address] 03/27/2024 1:45 PM CDT Appointment [facility] [place] [address] Ear, Nose, and Throat [address] [place] [phone] Paras Hardy PA-C [address] [place] [address] 04/10/2024 3:30 PM CDT Appointment [facility] [place] [address] Vascular Surgery [address] [place] [phone] Rupesh Figueroa MD 5300 [place] [address] 04/18/2024 11:10 AM CDT Appointment [facility] [place] [address] [place] [phone] Loreta Siegel OD 3900 [place], [place] [address] 05/23/2024 9:50 AM CDT Telemedicine [facility] [address] [place], [place] [address] Claudia Roach, HEALTH SPA MANAGER, LEARN TO SWIM INSTRUCTOR 1770 [place], [place] [address]296 documented as of this encounter Visit Diagnoses Not on filedocumented in this encounter Additional Health Concerns Infection Onset Date Last Indicated Resolved Time R/O COVID19 08/06/2020 08/06/2020 08/07/2020 2:29 PM COMMUNITY OUTREACH ADVOCATE documented as of this encounter Care Teams Client Administrator Relationship Specialty Start Date End Date Dipesh Florez MD [address] [place] [address] [place] [address] PCP - General Family Practice 08/19/19 documented as of this encounter
--- OUTSIDE RECORDS SUMMARY | 2024-03-12 16:10 | XMS_ITS | Encounter Summary ---
Author Organization [facility] Address [address] [place] [address] Care Team Providers Care Painter Helper Name Role Phone Dipesh Florez MD Primary Care Provider [phone] Encounter Details Date Type Department Care Team (Latest Contact Info) Description 02/07/1999 Orders Only Jf Gee MD [address] [facility] [address] [place] [address] Social History Tobacco Use Types Packs/Day Years [...] 3:15 PM CDT Appointment [facility] [address] [address] [place] [address] [place] [address] 03/27/2024 1:45 PM CDT Appointment [facility] [place] [address] Ear, Nose, and Throat [address] [place] [phone] Paras Hardy PA-C [address] [place] [address] 04/10/2024 3:30 PM CDT Appointment [facility] [place] [address] Vascular Surgery [address] [place] [phone] Rupesh Figueroa MD 4130 [place] [address] 04/18/2024 11:10 AM CDT Appointment [facility] [place] [address] [place] [phone] Loreta Siegel OD 3900 [place], [place] [address] 05/23/2024 9:50 AM CDT Telemedicine [place] [facility] [place] [facility] [address] [place], [place] [phone] Claudia Roach, AUTOMOBILE SERVICE ADVISOR, TALENT COORDINATOR 4150 [place], [place] [address] documented as of this encounter Visit Diagnoses Not on filedocumented in this encounter Additional Health Concerns Infection Onset Date Last Indicated Resolved Time R/O COVID19 08/06/2020 08/06/2020 08/07/2020 2:29 PM STRAP SEWER documented as of this encounter Care Teams Painter Helper Relationship Specialty Start Date End Date Dipesh Florez MD [address] [place] [address] [place] [address] PCP - General Family Practice 08/19/19 documented as of this encounter
--- OUTSIDE RECORDS SUMMARY | 2024-03-12 16:10 | XMS_ITS | Encounter Summary ---
Author Organization [facility] Address [address], [place] [address] Care Team Providers Care Bill Clerk Name Role Phone Dipesh Florez MD Primary Care Provider [phone] Reason for Visit * Reason Comments Pelvic Health * Therapies (Routine) - New Request Specialty Diagnoses / Procedures Referred By Enoch pfeiffer Referred To Contact Diagnoses Anal pain Constipation, unspecified constipation type Jeanne Jasso, KRYSTYNA [address] [place] [address] Referral ID Status Reason Start Date Expiration Date V isits Requested Visits Authorized [id number] New Request 08/01/2023 07/31/2024 1 1 Encounter Details Date Type Department Care Team ([facility] st Contact Info) Description 02/07/2024 2:45 PM CDT Office Visit [facility] [place] [address] [place] [address] [place] [address] [place] [address] Constipation, unspecified constipation type (Primary Dx); Dyspareunia in female; Bladder pain; Urge incontinence Social History Tobacco Use Types Packs/Day Years [...] as of this encounter Progress Notes * Rosalia Jeter, PT - 02/07/2024 2:45 PM CDT Physical Therapy - Pelvic Floor Evaluation/Plan of Care Initial Certification Period: 02/07/2024 to 05/07/24 Referring Provider: Jeanne Jasso Visit Diagnosis: 1. Constipation, unspecified constipation type 2. Dyspareunia in female 3. Bladder pain 4. Urge incontinence Precautions: chronic pelvic pain Orders: Evaluate & treat Onset/Referral Date: 08/01/2024 SUBJECTIVE Reason for Visit: Was diagnosed with IC- having issues for about a year for bladder pain- Steroid helped temporarily Sometimes has trouble starting urine stream Does feel like fully empty bladder Urgency and leakage with urge incontinence Does have some stress incontinence occasionally Bowel issues as well- constipation that has been worse in last 6 months Mirilax and citracel Doesn't feel like fully empty Always feels constantly bloated/hard to pass gas Vaginally and pelvic and rectal pain On and off dull/sharp pelvic pain prior to bowel movement and throughout day randomly Hip and back pain still present- depends on which side pain is on Cycle- increases all of symptoms- not regular but is getting more regular Initial and deeper penetration causes increased pain that lingers for days after Started a job in July- lifting and moving a lot more working in [employer] Walking 20-30minutes a day and light weights (nothing heavy or strenous) Pelvic floor Feels heavier when walking- is focusing on holding it in. Feels a bulge sometimes in vaginal area Hemorrhoids come and go- flairs comes and goes Plantar fascia feels better but is trying to over correct to get flat stance ILOVEYOU massage helps some Patient Therapy Goals: Reduction in urinary complaints, bowel complaints, and pain Past Medical History: Bel has a past medical history of Irritable bowel syndrome, Migraines, and PCOS (polycystic ovarian syndrome) (HRC). Recently Experienced (Red Flags): Denies fever, chills, night sweats, unrelenting night pain, unexplained weight loss, bowel/bladder changes, saddle sensation changes Surgeries: Patient has a past surgical history that includes carpal tunnel release; tonsillectomy; and Corneal Surgery.. Medications: Patient has a current medication list which includes the following prescription(s): acetaminophen, albuterol sulfate hfa, azelastine, cholecalciferol, epinephrine, famotidine, fexofenadine, fluticasone propionate, hydrocortisone, hydrocortisone (perianal), hydroxyzine hcl, hyoscyamine, ibuprofen, inositol-d chiro-inositol, lidocaine 3% nifedipine 0.5% occluvan, lorazepam, methylcellulose, multivitamin, naproxen sodium, nurtec, ondansetron, polyethylene glycol 3350, probiotic product, and riboflavin.. Previous Treatment: Physician exam: See EMR for physician findings Pelvic exam: Normal Prior Physical Therapy: Pt has had previous physical therapy for this complaint Benefited from previous treatment: yes but did not continue after 2 sessions Urinary Function: Urinary Function: Urinary leakage: The amount of urinary leakage is few drops and presents multiple times per day, requiring minimal (toilet tissue, paper towel, panty liner) pads 2 daily. Pad use is daytime only for protection from leakage provoked with strong urge to void, walking to toilet, light activity (walking, light housework), secual activity, coughing, sneezing, laughing, yelling, position change, exertion/vigorous activity/exercise Urinary frequency: Voiding during waking hours is every 1-2 hour/s and 1 time per night, and does feel she empties bladder fully. Once urge to void presents, able to delay urination minutes. Patient reports there is pain with urination and there is not blood in urine. Pelvic pressure/heaviness or prolapse: With strain/exertion Ranking of severity of urinary problem: 6/10 (0-10 scale with 10 being worst problem) Confidence in management of the urinary problem: Moderate confidence Limitations in Lifestyle/Quality of Life: Social activities - doesn't do as much due to leakage Diet/fluid intake - less water intake Bowel Function: Frequency: Patient is reporting bowel movement 4 times per week Symptoms: Patient reports problems with constipation, straining, incomplete emptying Stool softener, laxative or enema use: myralax and citracel 1 times per day Food sensitivities: cheese, pistachios, tomatoes Food allergies: None noted Ranking of severity of bowel problem: 6/10 (0-10 scale with 10 being worst problem) Confidence in management of bowel problem: Little confidence Limitation in Lifestyle/Quality of life: Social activities - feeling pain and bloated and not wanting to do anything Abdominal/Pelvic Pain History: Pain description/history: Pain is located abdominally - suprapubic, left lower quadrant, right lower quadrant, hips Symptoms have been present for: 7-8 years (worse in last 6 months Onset of pain was Related to childbirth (2013) Pain is constant Symptoms are present more Morning, Afternoon, Evening, and Nighttime Quality of pain is Aching, Sharp, and Throbbing Pain affected by: empting the bladder, hard bowel movement, wearing tighter clothes, sitting, pelvic exams, intercourse - both initial and deeper penetration of intercourse, lingers for a few minutesto a day after intercourse Pain relieved by: Resting, Restriction of activity, and stretching Ranking of severity of pain problem: 6/10 (0-10 scale with 10 being worst problem) Confidence in management of pain: Moderate confidence Limitation in Lifestyle/Quality of life: Social activities - decreased sex drive Male Specific Questions: N/A Sexual History: Bel is sexually active. Not sexually active d/t pain with intercourse. Obstetric/Gynecologic History: History of 3 pregnancies, with 2 vaginal deliveries and 1 deliveries. Vaginal deliveries associated with tearing - 2nd degree first baby was not full term. Got right after first baby deliveries were without complications, pt did mention she got 6 injections in her belly that the doctor said would help her with recovery. 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 Therapist instructed patient on components for external and internal pelvic floor assessment, and possible outcomes of treatment. Patient verbalized understanding and consented to pelvic floor assessment and treatment. Musculoskeletal Exam Observation: Mood, orientation and behavior are appropriate Mobility/Transfer: patient transfers without limitation Lumbopelvic Exam: Observation: normal Screening: Hip Screen: Alana Left: WNL Alana Right: Positive SI findings Positive hip findings ROM: WNL Pain with extension Hip abduction 4/5 bilateral Neurological: Toe Walk: WNL bilat Heel Walk: WNL bilat Flexibility: Restricted Bilateral: quadratus, piriformis, and iliopsoas Joint Mobility: Thoracic: Hypomobile Lumbar: Hypermobile, Pain reproduction Palpation/Tenderness - Right lumbar paraspinals, quadratus lumborum, gluteus medius, obturator internus externally (caused patients pain) Special Tests: SLR Left: WNL SLR Right: WNL Mobility/Transfer - WNL Gait Exam - Normal Abdominal Exam: Abdominal Exam: Palpation: Tenderness to palpation of psoas, iliacus, obliques left, obliques right. Abdominal scars: Lower Transverse scar Diastasis recti: she has distal diastasis which is 1 finger width distal to umbilicus Abdominal strength: fair Internal Pelvic Floor Exam: Deferred - please see previous note from 2021 No outcome data collected. Clinical Examination: Moderate Complexity: Addressed 3 elements from body structures and functions (see above), and/or functional limitations as noted below. Today's Intervention/Charges: Physical Therapy Evaluation was completed and the patient was educated on the condition, planned therapy intervention and expectations from treatment. Therapeutic exercise x 10 minutes: Patient was instructed and performed below Home exercise programwith varying sets and reps until form adjusted adequately and questions were answered to the best of the PTs ability Access Code: [email or web address] URL: [email or web address] Date: 02/07/2024 Prepared by: Rosalia Elliott Exercises - Child's Pose Stretch - 1 x daily - 7 x weekly - 1 sets - 2 reps - 60s hold - Cat Cow - 1 x daily - 7 x weekly - 2 sets - 10 reps - Happy Baby with Pelvic Floor Lengthening - 1 x daily - 7 x weekly - 1 sets - 2 reps - 60s hold - Bird Dog - 2 x daily - 7 x weekly - 2 sets - 10 reps Therapeutic activities x 15 minutes: Educated patient on pelvic floor muscle anatomy and function related to bowel, bladder and sexual dysfunction. Discussed relationship of pelvic floor with respiration and core stabilization. Used visual 3D model to show patient the anatomy of the pelvic floor and the relationship to the glutes/core/adductors. Used patient specific examples for better understanding of the pelvic floor. Instructed in self colon massage - in I love you pattern to stimulate peristalsis of the descending, transverse and ascending colon - Patient is to perform 1x daily. Patient educated on controlling urinary urge techniques. These include diaphragmatic breathing, distraction techniques, saying out loud I can control my bladder, stopping activity and standing still/sitting, holding PF with direct pressure, Fast PF contractions and if the urge came back to repeatthis prior to going to the bathroom and most important to NOT FORTUNE TO THE TOILET. Pt was educated in learning to stretch and relax the pelvic floor muscles. Pt educated on Reverse Pelvic Floor Contraction, otherwise known as ???Perineal Bulging?? or ???Downtraining?? . Pt would either lay down or sit and focus on pelvic floor dropping towards your feet as you breath in and let your belly expand. You should feel like you're elongating or stretching those muscles. Handout given Timed Code Treatment Minutes: 25 Total Treatment Minutes: 60 ASSESSMENT PT Clinical Presentation: Moderate Complexity: Evolving Clinical Presentation with changing clinical characteristics Clinical Decision Making: Moderate Complexity Therapist Impression/Summary: Pt is a 38 y/o female referred to Physical Therapy for eval and treatchronic constipation bowel issues, and pain in abdominal, bladder and pelvic regions with some urgency> stress incontinence. Pt has difficulty with ADLs, sleeping, intercourse, sitting due to pain, PF high tone, decreased belly breathing and lack of education. Skilled PT services are needed to address the above issues. Factors that influence progression are compliance Prognosis is good Significant Impairments: Diastasis recti, Mechanical dysfunction, Muscle tightness/decreased flexibility, Muscle hypertonicity, Muscle weakness, Muscle guarding, Pain Functional Limitations: Difficulty with transition to bathroom, pursuing social activities due to need for restroom access, work activity due to need for restroom access, normal diet/fluid intake, sports/leisure activities, pain limiting pelvic exams, pain if pursuing sexual activity, pain limiting/ affecting daily activity Goals/Functional Outcomes: Patient will report symptom reduction from 6/10 to 3/10 related to bowel complaint in 12-14 weeks. Verbalize understanding of bladder/bowel fitness principles to foster reduction in symptoms in 6-8 weeks in order to improve fluid intake Verbalize understanding of urge management strategies related to patient complaint to foster management of urgency symptoms in 6-8 weeks in order to improve fluid intake Patient will report improved body mechanics of defecation per patient report to reduce strain at pelvic floor. Report ability to return to sexual activity at desired frequency in 3-6 months Report improved tolerance to sitting for at least 30 minutes with minimal to no symptoms in 12-14 weeks. Return to prior level of function/ activity, include weight training, with minimal to no symptoms in 16-18 weeks. Potential Barriers to Goal Achievement or Learning: compliance Prognosis: Good PLAN Planned Intervention/Education: ADL/Self management, Biofeedback, Education, Electrical Stimulation, Heat/Ice, Iontophoresis with dexamethasone, Manual Therapy, Neuromuscular re-education, TENS application/self treatment, Therapeutic Activities, Therapeutic Exercise, Ultrasound Frequency: 1X every other week Duration: 90 days Discharge Plan: Patient will be discharged from therapy when goals are achieved or patient plateausin progress. Informed Consent: The patient was educated on the condition, planned therapy intervention and expectation from treatment. Goals were a collaborative effort of the therapist and patient caregiver. Risks, benefits and alternatives to treatment have been explained. Patient and/or family in agreement with the care plan. Plan for Next Treatment: obturator internus, urge techniques, reverse kegels, biofeedback, nerve glides The tool hardener is completed by the therapist and the referring clinician's electronic signature certifies medical necessity for the plan above. documented in this encounter Plan of Treatment Upcoming Encounters Date Type Department Care Team (Late st Contact Info) Description 03/14/2024 3:15 PM CDT Appointment [facility] [place] [address] [place] [address] [place] [address] [place] [address] 03/27/2024 1:45 PM CDT Appointment Mars[facility] Dior [place] [address] Ear, N[facility], and Thro[facility] [address] [place] [address] Paras Hardy PA-C [address] [place] [address] 04/10/2024 3:30 PM CDT Appointment [facility] [place] [address] Vascular Surgery [address] [place] [phone] Rupesh Figueroa MD 3030 [place], [place] [address] 04/18/2024 11:[address] [facility] [place] [address] [place] [address] Loreta Siegel OD [address] [place], [place] [phone] 05/23/2024 9:50 AM CDT Telemedicine [facility] [address] [place], [place] [address] Claudia Roach, CABLE PLACER, MODEL MAKER PLASTIC [address] [place], [place] [phone] Scheduled Referrals Name Type Priority Associated Diagnoses Orde r Schedule Physical Therapy Referral Routine Anal pain Constipation, unspecified constipation type Ordered: 08/01/2023 documented as of this encounter Visit Diagnoses Diagnosis Constipation, unspecified constipation type- Primary Dyspareunia in female Bladder pain Other symptoms involving urinary system Urge incontinence documented in this encounter Care Teams Bill Clerk Relationship Specialty [place] [address] [place] [address] PCP - General Family Practice 08/19/19 documented as of this encounter
--- OUTSIDE RECORDS SUMMARY | 2024-03-12 16:10 | XMS_ITS | Encounter Summary ---
Author Organization [facility] Address [address], [place] [address] Care Team Providers Care Process Manufacturing Engineer Name Role Phone Dipesh Florez MD Primary Care Provider [phone] Encounter Details Date Type Department Care Team (Late Contact Info) Description 11/12/2023 E-Visit [facility] [address] [place] [address] [place] [address] Social History Tobacco Use Types Packs/Day Years [...] 3:15 PM CDT Appointment [facility] [place] [address] [place] [address] [place] [address] [place] [address] 03/27/2024 1:45 PM CDT Appointment [facility] [address] Ear, Nose, and Throat [address] [place] [phone] Paras Hardy, PASamirC [address] [place] [address] 04/10/2024 3:30 PM CDT Appointment [facility] [place] [address] Vascular Surgery [address] [place] [phone] Rupesh Figueroa MD [address] [place], [place] [address] 04/18/2024 11:10 AM CDT Appointment [facility] [place] [address] [place] [phone] Loreta Siegel, JEANNA [address] [place], [place] [address] 05/23/2024 9:50 AM CDT Telemedicine [facility] [address] [place], [place] [address] Claudia Roach, CISTERN ROOM OPERATOR, FLIGHT COMMUNICATIONS SPECIALIST [address] [place], [place] [address] documented as of this encounter Visit Diagnoses Not on filedocumented in this encounter Care Teams Process Manufacturing Engineer Relationship Specialty [place] [address] [place] [address] PCP - General Family Practice 08/19/19 documented as of this encounter
--- OUTSIDE RECORDS SUMMARY | 2024-03-12 16:10 | XMS_ITS | Encounter Summary ---
Author Organization [facility] Address [address], [place] [address] Care Team Providers Care Dining Room Supervisor Name Role Phone Dipesh Florez MD Primary Care Provider Reason for Visit * Procedure/Equipment (Routine) - Incomplete Specialty Diagnoses / Procedures Referred By Enoch t Referred To Contact Diagnoses Mass of lower inner quadrant of right breast Mass of lower inner quadrant of left breast Procedures [facility] [place] [address] [place] [address] Referral ID Status Reason Start Date Expiration Date V isits Requested Visits Authorized [id number] Incomplete 01/01/2024 04/01/2025 1 1 Encounter Details Date Type Department Care Team (Latest Contact Info) Description 01/21/2024 3:00 PM CDT Ancillary Procedure [facility] 3850 Mammography 3850 [facility] [place] [address] [place] [address] ELISSA Fried [address] Mass of lower inner quadrant of right [...] 3:15 PM CDT Appointment [facility] [place] [address] [place] [address] [place] [address] [place] [address] 03/27/2024 1:45 PM CDT Appointment [facility] [address] Ear, Nose, and Throat [address] [place] [phone] Paras Hardy, PASamirC 3800 [place], [place] [id number] 04/10/2024 3:30 PM CDT Appointment [facility] 28066 Vascular Surgery [address] [place] [phone] Rupesh Figueroa MD [address]998 [place], [place] [phone] 04/18/2024 11:10 AM CDT Appointment [facility] [place] [id number] [place] [phone] Loreta Siegel, JEANNA [address] [place], [place] [address] 05/23/2024 9:50 AM CDT Telemedicine [facility] [address] [place], [place] [phone] Claudia Roach, INTERNET TECHNOLOGY MANAGER, LEGAL BILLING COORDINATOR [address] [place], [place] [phone] documented as of this encounter Procedures Procedure Name Priority Date/Time Associated Diagnosis Comments [facility] US BREAST BILAT Routine 01/21/2024 3 :18 PM CDT Mass of lower inner quadrant of right breast Mass of lower inner quadrant of left breast documented in this encounter Results * [facility] US Breast Bilat (01/21/2024 3:18 PM CDT) [...] up were discussed with the patient. [facility] will attempt to schedule recommended [...] follow up were discussedwith the patient. [facility] will attempt to schedulerecommended follow up [...] up were discussed with the patient. [facility] will attempt to schedule recommended follow [...] follow up were discussedwith the patient. [facility] will attempt to schedulerecommended follow up with the patient. Dipesh Florez MD RAD PIPER documented in this encounter Visit Diagnoses Diagnosis Mass of lower inner quadrant of right breast Mass of lower inner quadrant of left breast Mass of lower inner quadrant of right breast Mass of lower inner quadrant of left breast documented in this encounter Care Teams Dining Room Supervisor Relationship Specialty [place] [address] [place] [address] PCP - General Family Practice 08/19/19 documented as of this encounter
--- OUTSIDE RECORDS SUMMARY | 2024-03-12 16:11 | XMS_ITS | Encounter Summary ---
Author Organization [facility] Address [address] [place] [address] Care Team Providers Care Intermodal Owner Operator Truck Driver Name Role Phone Dipesh Florez MD Primary Care Provider [phone] Encounter Details Date Type Department Care Team (Latest Contact Info) Description 01/18/1996 Orders Only Annette Holley [facility] [address] [place], [place] [address] Social History Tobacco Use Types Packs/Day Years [...] 3:15 PM CDT Appointment [facility] [place] [id number] [place] [address] [place] [address] [place] [address] 03/27/2024 1:45 PM CDT Appointment [facility] [place] [address] Ear, Nose, and Throat [address] [place] [phone] Paras Hardy, PASamirC [address] [place] [address] 04/10/2024 3:30 PM CDT Appointment [facility] [place] [address] Vascular Surgery [address] [place] [phone] Rupesh Figueroa MD [address]50 [place] [address] 04/18/2024 11:10 AM CDT Appointment [facility] [place] [address] [place] [phone] Loreta Siegel OD [address] [place], [place] [address] 05/23/2024 9:50 AM CDT [facility] [address] [place], [place] [address] Claudia Roach, PRODUCTION COORDINATOR, AUTOMATION SALES MANAGER [address] [place], [place] [address] documented as of this encounter Visit Diagnoses Not on filedocumented in this encounter Additional Health Concerns Infection Onset Date Last Indicated Resolved Time R/O COVID19 08/06/2020 08/06/2020 08/07/2020 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
--- OUTSIDE RECORDS SUMMARY | 2024-03-12 16:11 | XMS_ITS | Encounter Summary ---
Author Organization [facility] Address [address] [place] [address] Care Team Providers Care Refuge Manager Name Role Phone Dipesh Florez MD Primary Care Provider [phone] Encounter Details Date Type Department Care Team (Latest Contact Info) Description 12/22/1996 Orders Only Sheila Mena, ORACLE ASCP CONSULTANT, BUSINESS INTELLIGENCE DIRECTOR Social History Tobacco Use Types Packs/Day Years [...] 3:15 PM CDT Appointment [facility] [place] [address] [place] [address] [place] [address] [place] [address] 03/27/2024 1:45 PM CDT Appointment [facility] [place] [address] Ear, Nose, and Throat [address] [place] [address] Paras Hardy, KRYSTYNA [address] [place] [address] 04/10/2024 3:30 PM CDT Appointment [facility] [place] [address] Vascular Surgery [address] [place] [phone] Rupesh Figueroa MD [address]90 [place], [place] [address] 04/18/2024 11:10 AM CDT Appointment [facility] [place] [address] [place] [phone] Loreta Siegel, JEANNA [address] [place], [place] [phone] 05/23/2024 9:50 AM CDT Telemedicine [facility] [address] [place], [place] [address] Claudia Roach, ORACLE ASCP CONSULTANT, BUSINESS INTELLIGENCE DIRECTOR [address] [place], [place] [address] documented as of this encounter Visit Diagnoses Not on filedocumented in this encounter Additional Health Concerns Infection Onset Date Last Indicated Resolved Time R/O COVID19 08/06/2020 08/06/2020 08/07/2020 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
--- OUTSIDE RECORDS SUMMARY | 2024-03-12 16:11 | XMS_ITS | Encounter Summary ---
Author Organization [facility] Address [address] [place] [address] Care Team Providers Care Agricultural Sales Representative Name Role Phone Amauri Amezquita MD Primary Care Provider Osmany Chavez MD Unavailable [phone] Osmany Chavez MD Unavailable [phone] Amauri Amezquita MD Unavailable [phone] Osmany Chavez MD Unavailable [phone] Dipesh Florez MD Primary Care Provider [phone] Encounter Details Date Type Department Care Team (Late st Contact Info) Description 10/20/2011 Clinic Report (Shipping And Receiving Operator) [address] [address] Amauri Amezquita MD XXX RETIRED [address] [place] [address] Social History Tobacco Use Types Packs/Day Years Used Date Smoking Tobacco: Never Assessed Sex and Gender Information Value Date Recorded Sex Assigned at Not on file Gender Identity Not on file Sexual Orientation Not on file documented as of this encounter Progress Notes * Amauri Amezquita MD - 08/23/2012 8:18 PM CST CC/HPI: She presented with headache. It is located diffusely and acute. The symptom is described as acute. The symptom is sudden in onset. The symptom started 3 days ago. In addition, she presented with vaginal discharge. It is located diffusely and acute. The symptom is sudden in onset. The symptom started couple? days ago. The complaint is moderate. The frequency of episodes is increasing. Current Medication: Acetaminophen-Codeine 300 mg-30 mg Tab. Junel FE (28) 1.5 mg-30 mcg Tab, 1 Tablet(s), PO, daily, 90 days, 3 refills, for a total of 90, start on June 15, 2011, end on February 29, 2012 and discontinued because: Discontinued. Fluticasone 50 mcg/Actuation Nasal [place], Susp, 2 [place], NASAL, daily, 30 days, 9 refills, for a total of 1 bottle, start on April 12, 2011 and end on February 05, 2012. Fexofenadine 180 mg Tab, 1 Tablet(s), PO, daily, 30 days, 12 refills, for a total of 30, start on December 02, 2010 and end on December 26, 2011. ROS: Constitutional: The patient denied fever and recent illness. Genitourinary/Nephrology: The patient denied urinary frequency, urinary incontinence and urinary urgency. Vital Signs: data collected on 10/20/2011 11:55:33 AM by Sussy Keller weight is 202 pounds clothed sitting heart rate is 72 bpm radial regular blood pressure at Left Arm while Sitting is 130/70 mmHg PE: Constitutional: GENERAL APPEARANCE: Overall: well nourished, well developed and in no acute distress. Genitourinary: CERVIX: Overall: no cervical motion tenderness, no discharge and no lesions; LABIA AND VAGINA: Vaginal discharge: white; URETHRA: Overall: no masses; BLADDER: Overall: no tenderness. Dx: (346.01) - C - Migraine, classic, intractable (616.10) - C - Bacterial vaginitis Rx: Demerol 100 mg/mL Injection, 0.5 Milliliter(s), Inj, 1 days, for a total of 0.5 cc, start on October 20, 2011, end on October 20, 2011. Metronidazole 500 mg Tab, 1 Tablet(s), PO, BID, 7 days, for a total of 14, start on October 20, 2011, end on October 26, 2011. Propranolol ER 80 mg 24 hr sustained action Cap, 1 Capsule(s), PO, daily, 30 days, 5 refills, for a total of 30, start on October 20, 2011, end on April 16, 2012. Vistaril 50 mg Injectable, 1 Milliliter(s), IM, 1 days, for a total of 1 ml, start on October 20, 2011, end on October 20, 2011. 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: None LE WIRE INSERTER documented in this encounter Plan of Treatment Not on file documented as of this encounter Visit Diagnoses Not on filedocumented in this encounter Care Teams Agricultural Sales Representative Relationship Specialty Start Date End Date Amauri Amezquita MD [address] [place] [address] PCP - General Family Practice 06/13/12 08/04/20 Osmany Chavez MD [address] 7698[address] PCP - Assigned PCP 05/26/18 12/03/18 Dipesh [facility]z MD [facility] [address] [place] [address] PCP - General 08/05/20 Osmany Chavez MD [address] [address] Assigned PCP 05/26/18 06/07/19 Amauri Amezquita MD [address] RETIRED [address] [place] [address] Assigned PCP 06/08/19 11/29/19 Osmany Chavez MD [address] [place] [address] Assigned PCP 11/30/19 06/11/21 documented as of this encounter
--- OUTSIDE RECORDS SUMMARY | 2024-03-12 16:11 | XMS_ITS | Referral Summary ---
Author Organization [facility] Address [address] [place] [address] Care Team Providers Care Line Installer Repairer Name Role Phone Dipesh Florez MD Primary Care Provider [phone] Allergies Active Allergy Reactions Criticality Noted Date Comments Contrast Dye 08/10/2020 Iopamidol Anaphylaxis,Difficul ty breathing High 08/05/2020 Other reaction(s): Chest Pain Sumatriptan 09/08/2012 flushing, chest pain,anxiety Medications Medication Sig Dispensed Refills Start Date End Date Status riboflavin 400 MG CAPSIndications:Angel elver without aura and without status migrainosus, not intractable Take 400 mg by mouth every morning 30 capsule 3 05/29/2017 Active UNKNOWN TO PATIENT Take 1 tablet by mouth daily Oral Control Active Citalopram Hydrobromide (CELEXA PO) Active LORazepam (ATIVAN) 0.5 MG tabletIndications:A nxiety Take 1 tablet (0.5 mg) by mouth every 8 hours as needed for anxiety 20 tablet 03/27/2018 Active metFORMIN (GLUCOPHAGE-XR) 500 MG 24 hr tabletIndications:P COS (polycystic ovarian syndrome) Take 1 tablet (500 mg) by mouth daily (with dinner) 30 tablet 1 03/27/2018 Active ondansetron (ZOFRAN) 4 MG tabletIndications:N ausea Take 1 tablet (4 mg) by mouth every 6 hours 12 tablet 1 03/27/2018 Active topiramate (TOPAMAX) 15 MG capsule Take 15 mg by mouth 03/25/2018 Active busPIRone (BUSPAR) 15 MG tabletIndications:A nxiety state Start with 1/2 tab twice daily for first week, increase to 1 tab after that 60 tablet 1 06/07/2018 Active triamcinolone (NASACORT) 55 MCG/ACT inhaler [place] 2 sprays into both nostrils daily Active predniSONE (DELTASONE) 20 MG tablet Take two tablets (= 40mg) each day for 3 (three) days 6 tablet 08/05/2020 Active EPINEPHrine (ANY BX GENERIC EQUIV) 0.3 MG/0.3ML injection 2-pack Inject 0.3 mLs (0.3 mg) into the muscle once as needed for anaphylaxis 1 each 08/05/2020 Active Active Problems Problem Noted Date Diagnosed Date Migraine without aura and wi thout status migrainosus, not intractable 10/06/2017 Class 1 obesity due to exces s calories with serious comorbidity and body mass index (BMI) of 33.0 to 33.9 in adult 10/06/2017 Impaired fasting glucose 10/06/2017 Strain of muscle of torso, i nitial encounter-RLQ s/po C section 08-28-17 at 30 wks and lifting 8 wks s/po 09/27/2017 LSIL (low grade squamous int raepithelial lesion) on Pap smear 11/10/2016 Overview: 02/28/11 ASCUS/+ HR HPV. 08/2011 LEEP-LULU 2 08/01/13 LSIL 2013 [place]- benign. ECC- suggestive of HPV 11/06/16 NIL/Neg HPV. Plan: cotest in 1 year 05/27/18 Patient is lost to pap tracking follow-up. 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 Muscle pain 03/07/2007 Panic disorder without agoraphobia 03/07/2007 Chronic tonsillitis 03/06/2007 Overview: Overview: LW Modifier: s/p tonsillectomy Irritable bowel syndrome 01/23/2007 Tobacco user 01/23/2007 Overview: Overview: LW Modifier: quit Resolved Problems Problem Noted Date Diagnosed Date Resolved Date Abdominal pain, right lower quadrant 10/09/2017 11/27/2017 Migraine 11/28/2016 10/06/2017 Overview: No CSA on file FILL MANAGER 2-6-79-provider to review Abnormal Pap smear of cervix 11/20/2014 05/27/2018 Overview: Followed by [facility] DUMP GRADER Amniotic fluid leaking 10/01/201411/20 Active labor 10/01/2014 11/20/2014 contractions 09/14/2014 015 Indication for care in labor or delivery 09/14/2014 11/20/2014 CARDIOVASCULAR SCREENING; LD L GOAL LESS THAN 160 06/30/2014 08/13/2015 Encounter for screening for risk of pre-term labor 06/15/2014 11/20/2014 Lumbago 06/10/2014 11/27/2017 Pelvic pressure in , antepartum 05/31/2014 11/20/2014 Indication for care in labor or delivery 11/11/2013 06/30/2014 Twin delivered vaginally 11/11/2013 06/30/2014 Immunizations Name Administration Dates Next Due HEPA 08/01/1999 HepA, Unspecified 12/07/1998 HepB 12/22/1996,06/13/1996,05/15/1996 Historical DTP/aP 03/11/1990, 6,02/07/1985,1984, 4 Influenza (IIV3) PF 07/06/2016,07/01/2015,2013,08/07/2013 MMR 06/03/1996,02/04/1986 OPV, trivalent, live 03/11/1990,02/04/1986,12/16,1984 TD,PF 7+ (Tenivac) 06/13/1996 TDAP (Adacel,Boostrix) 07/31/2014 TDAP Vaccine (Adacel) 08/31/2016,11/26/2006 Social History Tobacco Use Types Packs/Day Years Used Date Smoking Tobacco: Former Smokeless Tobacco: Never Tobacco Cessation:Counseling Given: No Alcohol Use Standard Drinks/Week Comments Yes 0 (1 standard drink = 0.6 oz pur e alcohol) a couple drinks a week PHQ-2 Answer Date Recorded PHQ-2 Score 0 10/09/2018 Adolescent Education Answer Date Record ed Getting School Help Needed Not on file 06/27 Sex and Gender Information Value Date Recorded Sex Assigned at Not on file Gender Identity Not on file Sexual Orientation Not on file Last Filed Vital Signs Vital Sign Reading Time Taken Comments Blood Pressure 128/85 08/10/2020 11:30 PM MERCERIZING RANGE FEEDER Pulse 62 08/10/2020 11:30 PM MERCERIZING RANGE FEEDER Temperature 36.9 ??C (98.4 ??F) 08/10/2020 6:30 PM CS T Respiratory Rate 18 08/10/2020 6:30 PM MERCERIZING RANGE FEEDER Oxygen Saturation 97% 08/10/2020 11:30 PM MERCERIZING RANGE FEEDER Inhaled Oxygen Concentration - - Weight 93 kg (205 lb) 08/10/2020 6:30 PM MERCERIZING RANGE FEEDER Height 175.3 cm (5' 9) 08/10/2020 6:30 PM MERCERIZING RANGE FEEDER Body Mass Index 30.27 08/10/2020 6:30 PM MERCERIZING RANGE FEEDER Plan of Treatment Not on file Procedures Procedure Name Priority Date/Time Associated Diagnosis Comments FOLLICLE STIMULATING HORMONE Routine 02/26/2024 3:24 PM CDT Irregular menstruation, unspecified COMPREHENSIVE METABOLIC PANEL Routine 06/26/2023 12:08 PM CDT Nonscarring hair loss, unspecified LIPID PROFILE Routine 06/20/2022 10:53 AM CDT Body mass index (BMI) 36.0-36.9, adult HPV HIGH RISK TYPES DNA CERVICAL Routine 11/06/2016 1:50 PM MERCERIZING RANGE FEEDER Routine medical exam PAP IMAGED THIN LAYER SCREEN Routine 11/06/2016 1:39 PM MERCERIZING RANGE FEEDER H/O abnormal cervical Papanicolaou smear HIV ANTIGEN ANTIBODY COMBO Routine 03/31/2016 HCV ANTIBODY ([facility]) Routine 11/17/2010 8:55 PM MERCERIZING RANGE FEEDER from Last 3 Months or Most Recently Relevant to Health Maintenance Results * Follicle stimulating hormone (02/26/2024 3:24 PM CDT) FSH 7.2 mIU/mL 02/27/2024 10:30 AM CDT [facility] Comment: 19 years and older: Follicular phase: 3.5-12.5 mIU/mL Ovulation phase: 4.7-21.5 mIU/mL Luteal phase: 1.7-7.7 mIU/mL Postmenopause: 25.8-134.8 mIU/mL Blood BLOOD SPECIMEN / Unknown Client Draw / Unknown 02/26/2024 3:24 PM CDT 02/26/2024 9:56 PM CDT Daniela Melendez APRN ENGLISH [employer]ANG[employer]S TEACHER LAB - BLO OD ORDERABLES [facility] [address] [facility], [address] [place] [address] * (ABNORMAL) Comprehensive metabolic panel (06/26/2023 12:08 PM CDT) Sodium 140 135 - 145 mmol/L 06/26/2023 7:24 PM CDT [facility] Comment:Reference intervals for this test were updated on 06/26/2023 to more accurately reflect our healthy population. There may be differences in the flagging of prior results with similar values performed with this method. Interpretation of those prior results can be made in the context of the updated reference intervals. Potassium 3.8 3.4 - 5.3 mmol/L 06/26/2023 7:24 PM CDT [facility] Carbon Dioxide (CO2) 24 22 - 29 mmol/L 06/26/2023 7:24 PM CDT [facility] Anion Gap 13 7 - 15 mmol/L 06/26/2023 7:24 PM CDT [facility] Urea Nitrogen 5.4(L) 6.0 - 20.0 mg/dL 06/26/2023 7:24 PM CDT [facility] Creatinine 0.73 0.51 - 0.95 mg/dL 06/26/2023 7:24 PM CDT [facility] GFR Estimate >90 >60 mL/min/1. 73m2 06/26/2023 7:24 PM CDT [facility] Calcium 9.6 8.6 - 10.0 mg/dL 06/26/2023 7:24 PM CDT [facility] Chloride 103 98 - 107 mmol/L 06/26/2023 7:24 PM CDT [facility] Glucose 95 70 - 99 mg/dL 06/26/2023 7:24 PM CDT [facility] Alkaline Phosphatase 78 35 - 104 U/L 06/26/2023 7:24 PM CDT [facility] AST 22 0 - 45 U/L 06/26/2023 7:24 PM CDT [facility] Comment:Reference intervals for this test were updated on 03/12/2023 to more accurately reflect our healthy population. There may be differences in the flagging of prior results with similar values performed with this method. Interpretation of those prior results can be made in the context of the updated reference intervals. ALT 24 0 - 50 U/L 06/26/2023 7:24 PM CDT [facility] Comment:Reference intervals for this test were updated on 03/12/2023 to more accurately reflect our healthy population. There may be differences in the flagging of prior results with similar values performed with this method. Interpretation of those prior results can be made in the context of the updated reference intervals. Protein Total 7.4 6.4 - 8.3 g/dL 06/26/2023 7:24 PM CDT [facility] Albumin 4.6 3.5 - 5.2 g/dL 06/26/2023 7:24 PM CDT [facility] Bilirubin Total 1.0 <=1.2 mg/dL 06/26/2023 7:24 PM CDT [facility] Blood BLOOD SPECIMEN / Unknown Client Draw / Unknown 06/26/2023 12:08 PM CDT 06/26/2023 4:49 PM CDT Daniela Jenn Melendez SHEAR HELPER ENGLISH [employer]ANG[employer] ARTS TEACHER LAB - BLO OD ORDERABLES [facility] [address] [facility], [address] [place] [address], [facility] [phone] * (ABNORMAL) Lipid Profile (06/20/2022 10:53 AM CDT) Cholesterol 229(H) <200 mg/dL 06/20/2022 7:02 PM CDT [facility] Triglycerides 263(H) <150 mg/dL 06/20/2022 7:02 PM CDT [facility] Direct Measure HDL 41(L) >=50 mg/dL 06/20/2022 7:02 PM CDT [facility] LDL Cholesterol Calculated 135(H) <=100 mg/dL 06/20/2022 7:02 PM CDT [facility] Non HDL Cholesterol 188(H) <130 mg/dL 06/20/2022 7:02 PM CDT [facility] Blood TOPOGRAPHY UNKNOWN / Unknown Client Draw / Unknown 06/20/2022 10:53 AM CDT 06/20/2022 4:12 PM CDT Narrative [facility] - 06/20/2022 7:02 PM CDT Cholesterol Desirable: ??<200 mg/dL Triglycerides Normal: ??Less than 150 mg/dL Borderline High: ??150-199 mg/dL High: ??200-499 mg/dL Very High: ??Greater than or equal to 500 mg/dL Direct Measure HDL Female: ??Greater than or equal to 50 mg/dL Male: ??Greater than or equal to 40 mg/dL LDL Cholesterol Desirable: ??<100mg/dL Above Desirable: ??100-129 mg/dL Borderline High: ??130-159 mg/dL High: ??160-189 mg/dL Very High: ??>= 190 mg/dL Non HDL Cholesterol Desirable: ??130 mg/dL Above Desirable: ??130-159 mg/dL Borderline High: ??160-189 mg/dL High: ??190-219 mg/dL Very High: ??Greater than or equal to 220 mg/dL Daniela Melendez APRN ENGLISH LANGUAGE ARTS TEACHER LAB - BLO OD ORDERABLES [facility] [place] [facility] [address] [facility], [address] [place] [address], [facility] [phone] * HPV High Risk Types DNA Cervical (11/06/2016 1:50 PM MERCERIZING RANGE FEEDER) HPV 16 DNA Negative NEG [facility] HPV 18 DNA Negative [facility] Other HR HPV Negative NEG [facility] Final Diagnosis This patient's sample is negative for HPV DNA. (Note) METHODOLOGY: ??The [employer] delonte 4800 system uses automated extraction, simultaneous amplification of HPV (L1 region) and beta-globin, followed by ??real time detection of fluorescent labeled HPV and beta globin using specific oligonucleotide probes . The test specifically identifies types HPV 16 DNA and HPV 18 DNA while concurrently detecting the rest of the high risk types (31, 33, 35, 39, 45, 51, 52, 56, 58, 59, 66 or 68). COMMENTS: ??This test is not intended for use as a screening device for women under age 30 with normal cervical cytology. ??Results should be correlated with cytologic and histologic findings. Close clinical followup is recommended. This test was developed and its performance characteristics determined by the [facility], [facility]. It has not been cleared or approved by the FDA. The laboratory is regulated under CLIA as qualified to perform high-complexity testing. This test is used for clinical purposes. It should not be regarded as investigational or for research. [facility] Specimen Description Cervical Cells [id number] [facility] 11/06/2016 1:50 PM MERCERIZING RANGE FEEDER 11/06/2016 1:55 PM MERCERIZING RANGE FEEDER Cherie Champion MD LAB - BLOOD ORD ERABLES [facility] [address] [place] [address] * Pap imaged thin layer screen with HPV - recommended age 30 - 65 years (select HPV order below) (11/06/2016 1:39 PM MERCERIZING RANGE FEEDER) PAP NIL COPATH Copath Report Patient Name: BEL QURESHI MR#: [id number] Specimen #: [id number] Collected: 11/06/2016 Received: 11/07/2016 Reported: 11/08/2016 09:33 Ordering Phy(s): CHERIE CHAMPION For improved result formatting, select 'View Enhanced Report Format' under Linked Documents section. SPECIMEN/STAIN PROCESS: Pap imaged thin layer prep screening (Surepath, FocalPoint with guided screening) ? Pap-Cyto x 1, HPV ordered x 1 SOURCE: Cervical, endocervical Pap imaged thin layer prep screening (Surepath, FocalPoint with guided screening) SPECIMEN ADEQUACY: Satisfactory for evaluation. -Transformation zone component present. CYTOLOGIC INTERPRETATION: Negative for Intraepithelial Lesion or Malignancy Electronically signed out by: JEANNINE Clayton (ASCP) Processed and screened at [facility], [facility] CLINICAL HISTORY: LMP: 01/27/2016 Post-, Papanicolaou Test Limitations: ??Cervical cytology is a screening test with limited sensitivity; regular screening is critical for cancer prevention; Pap tests are primarily effective for the diagnosis/preventi on of squamous cell carcinoma, not adenocarcinomas or other cancers. TESTING LAB LOCATION: [address] ??[address] COLLECTION SITE: Client: ??[facility] Location: [facility] (S) COPATH Cytologic material (specimen) 11/06/2016 1:39 PM MERCERIZING RANGE FEEDER 11/07/2016 8:14 AM MERCERIZING RANGE FEEDER Cherie Champion MD LAB - OPTIME CL INICAL SPECIMEN COPATH * HIV Antigen Antibody Combo (03/31/2016) HIV Antigen Antibody Combo Negative Blood specimen (specimen) Patient Reported LAB - BLOOD ORDERABL ES * HCV Antibody ([facility]) (11/17/2010 8:55 PM MERCERIZING RANGE FEEDER) Hep C Virus Ab <0.1 0.0 - 0.9 s/co ratio [facility] HISTORICAL RESULTS Comment: Negative: ? < 0.8 ?? Indeterminate 0.8 - 0.9 ?? Positive: ? > 0.9 ?? . ?? In order to reduce the incidence of a false positive ?? result, the CDC recommends that all s/co ratios ?? between 1.0 and 10.9 be confirmed with additional ?? RIBA or PCR testing. ?? 11/17/2010 8:55 PM MERCERIZING RANGE FEEDER 11/20/2010 12:12 AM MERCERIZING RANGE FEEDER Pat Montano DO LAB - [facility] HISTORICAL RESULTS from Last 3 Months or Most Recently Relevant to Health Maintenance Advance Directives For more information, please contact: [phone] * Full Code (Latest Code Status on File) Date Activated Date Inactivated Comments 07/21/2016 7:23 PM 08/05/2020 6:25 PM Care Teams Line Installer Repairer Relationship Specialty Start Date End Date Dipesh Florez MD YENY NIEVES [address] [place] [id number] PCP - General 08/05/20
--- OUTSIDE RECORDS SUMMARY | 2024-03-12 16:11 | XMS_ITS | Encounter Summary ---
Author Organization [facility] Address [address] [place] [address] Care Team Providers Care Gospel Singer Name Role Phone Amauri Amezquita MD Primary Care Provider Osmany Chavez MD Unavailable [phone] Osmany Chavez MD Unavailable [phone] Amauri Amezquita MD Unavailable [phone] Osmany Chavez MD Unavailable [phone] Dipesh Florez MD Primary Care Provider [phone] Encounter Details Date Type Department Care Team (Late st Contact Info) Description 12/25/2011 Clinic Report ([facility]) [address] [address] Susan Hoff MD [address] [place] [address] Social History Tobacco Use Types Packs/Day Years Used Date Smoking Tobacco: Never Assessed Sex and Gender Information Value Date Recorded Sex Assigned at Not on file Gender Identity Not on file Sexual Orientation Not on file documented as of this encounter Progress Notes * Susan Hoff MD - 08/23/2012 7:37 PM CST CC/HPI: Patient had leep procedure 08/2011 Recently treated for 2 bacgterial infections in a row - now having same symptoms: painful urination, discharge no bubble baths, hot tubs, or new soaps, no change in exercises, not wearing a pad, doen'st drink caffeine at all She presented with dysuria. The symptom is described as burning. The symptom is gradual in onset. In addition, she presented with vaginal discharge. The symptom is described as white and yellow. The symptom is gradual in onset and ongoing. The symptom started 1.5 months ago. Patient denies back pain, bladder pain and pelvic pain. Associated signs and symptoms include urinary frequency and urinary urgency. Current Medication: Acetaminophen-Codeine 300 mg-30 mg Tab. June (28) 1.5 mg-30 mcg Tab, 1 Tablet(s), PO, daily, 90 days, 3 refills, for a total of 90, start on June 15, 2011, end on February 29, 2012 and discontinued because: Discontinued. Propranolol ER 80 mg 24 hr sustained action Cap, 1 Capsule(s), PO, daily, 30 days, 5 refills, for a total of 30, start on October 20, 2011, end on January 04, 2012, discontinued because: Dosage Change and increased. Fluticasone 50 mcg/Actuation Nasal [place], Susp, 2 [place], NASAL, daily, 30 days, 9 refills, for a total of 1 bottle, start on April 12, 2011 and end on February 05, 2012. Fexofenadine 180 mg Tab, 1 Tablet(s), PO, daily, 30 days, 12 refills, for a total of 30, start on December 02, 2010 and end on December 26, 2011. ROS: Constitutional: The patient denied fever. Gastrointestinal: The patient denied nausea. Vital Signs: data collected on 12/25/2011 01:19:02 PM by Stevie Whitaker weight is 202 pounds 7.04 ounces clothed sitting heart rate is 68 bpm regular blood pressure (manual) at Left Arm while Sitting is 126/70 mmHg PE: Constitutional: GENERAL APPEARANCE: Overall: well nourished, well developed and in no acute distress. Genitourinary: LABIA AND VAGINA: Overall: normal external genitalia and normal hair distribution; Vaginal discharge: copious and yellow; BLADDER: Palpation: tender. Dx: (338.5) - C - Vaginal discharge (616.10) - C - Vaginitis Rx: Metronidazole 0.75 % Vaginal Gel, 1 Unit Dose, VAG, BID, 5 days, 1 refills, for a total of 2 tubes, start on December 25, 2011, end on January 03, 2012, use twice a day for 5 days, then twice a week for a month. 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: Called her with results. Will try a longer course of metronidazoel gel, but also discussed that perhaps we should be looking for other cuases - she can bring back a first morning urine sampel fo STI check and also we can check for herps - order in so documented in this encounter Plan of Treatment Not on file documented as of this encounter Visit Diagnoses Not on filedocumented in this encounter Care Teams Gospel Singer Relationship Specialty Start Date End Date Amauri Amezquita MD [address] [facility] [place] [address] PCP - General Family Practice 06/13/12 08/04/20 Osmany Chavez MD [address] [address] PCP - Assigned PCP 05/26/18 12/03/18 Dipesh Florez MD YENY NIEVES [address] [place] [address] PCP - General 08/05/20 Osmany Chavez MD [address] [address] Assigned PCP 05/26/18 06/07/19 Amauri Amezquita MD XXX RETIRED [address] [place] [address] Assigned PCP 06/08/19 11/29/19 Osmany Chavez MD [address] [place] [address] Assigned PCP 11/30/19 06/11/21 documented as of this encounter
--- OUTSIDE RECORDS SUMMARY | 2024-03-12 16:11 | XMS_ITS | Encounter Summary ---
Author Organization [facility] Address [address] [place] [address]. [place] [address] Care Team Providers Care Sales Associate Fishing Name Role Phone Amauri Amezquita MD Primary Care Provider Osmany Chavez MD Unavailable [phone] Osmany Chavez MD Unavailable [phone] Amauri Amezquita MD Unavailable [phone] Osmany Chavez MD Unavailable [phone] Dipesh Florez MD Primary Care Provider [phone] Encounter Details Date Type Department Care Team (Late st Contact Info) Description 05/23/2011 Clinic Report (Gravity Meter Operator) [address] [phone] Rich David DO XXX XXX [address] [place], [place] [address] [phone] Social History Tobacco Use Types Packs/Day Years Used Date Smoking Tobacco: Never Assessed Sex and Gender Information Value Date Recorded Sex Assigned at Not on file Gender Identity Not on file Sexual Orientation Not on file documented as of this encounter Progress Notes * Rich David DO - 08/23/2012 10:06 PM CST CC/HPI: Migraine since Sunday. Getting worse. Tylenol # 3 , ibuprofen.Some stress , getting She presented with headache. It is located diffusely and in the left temporal region. The symptom is described as acute, constant, intermittent, pressure, squeezing, stabbing and throbbing. The symptom is sudden in onset and gradual in onset. The symptom started 4 days ago. The complaint is incapacitating. The frequency of episodes is daily. Pertinent other conditions include migraines. Important triggers include lack of sleep and stress. The symptom is alleviated by medication tylenol, ibuprofen. Associated signs and symptoms include headache, nausea and photophobia. Current Medication: Loestrin 1.5/30 (21) 1.5 mg-30 mcg Tab, 1 Tablet(s), PO, daily, 28 days, 1 refills, for a total of 28, start on April 10, 2011 and end on June 04, 2011. Atenolol 50 mg Tab, 1 Tablet(s), PO, daily, 30 days, 5 refills, for a total of 30, start on November 29, 2010, end on June 10, 2011 and discontinued because: Discontinued. Lidocaine 5 % Ointment, 1 Application, TOP, QID PRN, 30 days, 3 refills, for a total of 2 TUBES, start on February 28, 2011 and end on June 27, 2011. Fluticasone 50 mcg/Actuation Nasal [place], Susp, 2 [place], NASAL, daily, 30 days, 9 refills, for a total of 1 bottle, start on April 12, 2011 and end on February 05, 2012. Fexofenadine 180 mg Tab, 1 Tablet(s), PO, daily, 30 days, 12 refills, for a total of 30, start on December 02, 2010 and end on December 26, 2011. ROS: Constitutional: The patient denied chills, fatigue, fever, night sweats and weight loss. Eyes: The patient complained of photophobia but denied eye pain, vision change and visual disturbance. Ears/Nose/Throat/Neck: The patient denied hearing loss, nasal discharge, postnasal drip and sore throat. Cardiovascular: The patient denied arrhythmia, chest pain/pressure, edema and palpitations. Respiratory: The patient denied cough and dyspnea/shortness of breath. Gastrointestinal: The patient complained of nausea. Genitourinary/Nephrology: The patient denied dysuria and flank pain. Musculoskeletal: The patient complained of neck pain. Neurologic: The patient complained of headache. Psychiatric: The patient denied anxiety and depression. Hematologic/Lymphatic: The patient denied abnormal bleeding and bruising, abnormal ecchymoses, anemia and lymph node enlargement/mass. Vital Signs: data collected on 05/23/2011 03:46:27 PM by Stevie Whitaker weight is 197 pounds clothed sitting heart rate is 76 bpm regular blood pressure (manual) at Left Arm while Sitting is 126/76 mmHg PE: Constitutional: GENERAL APPEARANCE: Overall: well nourished and well developed Evidence of Distress: in distress secondary to pain; Hygiene/Attention to Grooming: good hygiene and normal grooming. Ears/Nose/Throat: ORAL CAVITY/PHARYNX/LARYNX: Overall: tonsils benign, oropharyngeal mucosa clear and no masses. Neck: INSPECTION OF NECK: Overall: normal appearance and no carotid bruits. Respiratory: AUSCULTATION: Overall: breath sounds clear bilaterally; RESPIRATORY EFFORT/RHYTHM: Overall: no retractions and normal rate. Cardiovascular: AUSCULTATION OF HEART: Overall: regular rate, regular rhythm, normal heart sounds and no murmurs; INSPECTION OF CAROTID PULSES: Overall: strong, bilaterally equal, no bruits; EXTREMITIES: Overall: no clubbing and no edema. Lymphatic: NECK NODES: Overall: anterior cervical chain benign and posterior cervical chain benign; OTHER NODES: Overall: supraclavicular chain benign. Integument: INSPECTION OF SKIN: Overall: no rash, lesions. Neurologic: DEEP TENDON REFLEXES: Overall: deep tendon reflexes intact; MENTAL STATUS: Overall: alert and oriented; MOTOR: Overall: normal bulk, tone. Psychiatric: ORIENTATION/CONSCIOUSNESS: Overall: oriented to person, place and time; BEHAVIOR/PSYCHOMOTOR ACTIVITY: Overall: no tics, normal psychomotor activity; COGNITION/MEMORY: Overall: immediate, recent, remote memory intact and normal concentration, intelligence; JUDGMENT/INSIGHT: Overall: judgment and insight intact. Dx: (346.01) - C - Migraine, classic, intractable (346.00) - C - Migraine, classic, not intractable Rx: None Plan: Ok injection , demerol, vistaril 50/50 ..Reccomended reeval by neurology. Last was about 5 years ago . She was given information on the [facility], and [facility]. She was given this form: 'Patient Medication Summary'. Patient Instructions: None documented in this encounter Plan of Treatment Not on file documented as of this encounter Visit Diagnoses Not on filedocumented in this encounter Care Teams Sales Associate Fishing Relationship Specialty Start Date End Date Amauri Amezquita MD [address] [place] [address] PCP - General Family Practice 06/13/12 08/04/20 Osmany Chavez MD [facility] [address] [address] PCP - Assigned PCP 05/26/18 12/03/18 Dipesh Florez MD [facility] [place] [address] [place] [address] PCP - General 08/05/20 Osmany Chavez MD [facility] [address] [address] Assigned PCP 05/26/18 06/07/19 Amauri Amezquita MD [address] [place] [address] Assigned PCP 06/08/19 11/29/19 Osmany Chavez MD [facility] [address] [address] Assigned PCP 11/30/19 06/11/21 documented as of this encounter
--- OUTSIDE RECORDS SUMMARY | 2024-03-12 16:11 | XMS_ITS | Encounter Summary ---
Author Organization [facility] Address [address] [place] [address] Care Team Providers Care Maintenance Mechanic Telephone Name Role Phone Amauri Amezquita MD Primary Care Provider Osmany Chavez MD Unavailable [phone] Osmany Chavez MD Unavailable [phone] Amauri Amezquita MD Unavailable [phone] Osmany Chavez MD Unavailable [phone] Dipesh Florez MD Primary Care Provider [phone] Encounter Details Date Type Department Care Team (Late st Contact Info) Description 11/03/2014 [facility] Medical Advice [address] [phone] Amauri Amezquita MD [address] RET[address] [place], [place] [address] Social History Tobacco Use Types Packs/Day Years Used Date Smoking Tobacco: Former Smokeless Tobacco: Never Alcohol Use Standard Drinks/Week Comments No 0 (1 standard drink = 0.6 oz pur e alcohol) Sex and Gender Information Value Date Recorded Sex Assigned at Not on file Gender Identity Not on file Sexual Orientation Not on file documented as of this encounter Plan of Treatment Not on file documented as of this encounter Visit Diagnoses Not on filedocumented in this encounter Care Teams Maintenance Mechanic Telephone Relationship Specialty Start Date End Date Amauri Amezquita MD [address] [place] [address] PCP - General Family Practice 06/13/12 08/04/20 Osmany Chavez MD [facility] [address] [address] PCP - Assigned PCP 05/26/18 12/03/18 Dipesh Florez MD [facility] [address] [place] [address] PCP - General 08/05/20 Osmany Chavez MD [facility] [address] [address] Assigned PCP 05/26/18 06/07/19 Amauri Amezquita MD [address] [place] [address] Assigned PCP 06/08/19 11/29/19 Osmany Chavez MD [facility] [address] [address] Assigned PCP 11/30/19 06/11/21 documented as of this encounter
--- OUTSIDE RECORDS SUMMARY | 2024-03-12 16:11 | XMS_ITS | Encounter Summary ---
Author Organization [email or web address] Address [address] [place] [address] Care Team Providers Care Supply Person Name Role Phone Dipesh Florez MD Primary Care Provider [phone] Encounter Details Date Type Department Care Team (Latest Contact Info) Description 09/02/1997 Orders Only [place] [address] Social History Tobacco Use Types Packs/Day Years [...] 3:15 PM CDT Appointment [facility] [address] [address] [place] [address] [place] [address] 03/27/2024 1:45 PM CDT Appointment [facility] [place] [address] [facility], [facility], [facility] Th[facility] [address] [place] [phone] Paras Hardy, PASamirC [address] [place] [address] 04/10/2024 3:30 PM CDT Appointment [facility] [place] [address] Vascular Surgery [address] [place] [address] Rupesh Figueroa MD [address] [place], [place] [address] 04/18/2024 11:10 AM CDT Appointment [facility] [place] [address] [place] [phone] Loreta Siegel OD [address] [place], [place] [address] 05/23/2024 9:50 AM CDT Telemedicine [facility] [address] [place], [place] [phone] Claudia Roach, HOUSING SPECIALIST, ASSURANCE MANAGER INSURANCE [address] [place], [place] [address] documented as of this encounter Visit Diagnoses Not on filedocumented in this encounter Additional Health Concerns Infection Onset Date Last Indicated Resolved Time R/O COVID19 08/06/2020 08/06/2020 08/07/2020 2:29 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
--- OUTSIDE RECORDS SUMMARY | 2024-03-12 16:11 | XMS_ITS | Encounter Summary ---
Author Organization [facility] Address [address] [place] [address] Care Team Providers Care Hoop Riveter Name Role Phone Amauri Amezquita MD Primary Care Provider Osmany Chavez MD Unavailable [phone] Osmany Chavez MD Unavailable [phone] Amauri Amezquita MD Unavailable [phone] Osmany Chavez MD Unavailable [phone] Dipesh Florez MD Primary Care Provider [phone] Encounter Details Date Type Department Care Team (Late st Contact Info) Description 01/17/2011 Clinic Report (Information Systems Specialist) [address] [address] Amauri Amezquita MD [address] [place] [address] Social History Tobacco Use Types Packs/Day Years Used Date Smoking Tobacco: Never Assessed Sex and Gender Information Value Date Recorded Sex Assigned at Not on file Gender Identity Not on file Sexual Orientation Not on file documented as of this encounter Progress Notes * Amauri Amezquita MD - 08/23/2012 11:38 PM CST CC/HPI: She presented with contraception only visit. Current contraception practice includes oral contraceptives. Current Medication: Tylenol-Codeine #3 300 mg-30 mg Tab, 1-2 Tablet(s), PO, QID PRN, 5 refills, for a total of 30, start on March 29, 2010, end on January 17, 2011 and discontinued because: Refilled. Fexofenadine 180 mg Tab, 1 Tablet(s), PO, daily, 30 days, 12 refills, for a total of 30, start on December 02, 2010 and end on December 26, 2011. Atenolol 50 mg Tab, 1 Tablet(s), PO, daily, 30 days, 5 refills, for a total of 30, start on November 29, 2010, end on June 10, 2011 and discontinued because: Discontinued. Fluticasone 50 mcg/Actuation Nasal [place], Susp, 2 [place], NASAL, daily, 10 days, for a total of 1 bottle, start on May 06, 2010, end on March 13, 2011 and discontinued because: Discontinued. ROS: Constitutional: The patient denied recent illness. Ears/Nose/Throat/Neck: The patient complained of nasal discharge. Vital Signs: data collected on 01/17/2011 01:36:57 PM by Diana Doherty weight is 196 pounds 1.92 ounces clothed sitting heart rate is 76 bpm radial regular blood pressure at Right Arm while Sitting is 122/80 mmHg PE: Constitutional: GENERAL APPEARANCE: Overall: well nourished, well developed and in no acute distress. Dx: (477.9) - C - Rhinitis, allergic, cause unspecified Rx: Loestrin 1.5/30 (21) 1.5 mg-30 mcg Tab, 1 Tablet(s), PO, daily, 28 days, 2 refills, for a total of 28, start on January 17, 2011, end on April 10, 2011. Plan: Will see back pending review of lab tests. See back for pap smear at patient's convenience. Patient Instructions: None documented in this encounter Plan of Treatment Not on file documented as of this encounter Visit Diagnoses Not on filedocumented in this encounter Care Teams Hoop Riveter Relationship Specialty Start Date End Date Amauri Amezquita MD [address] [place] [address] PCP - General Family Practice 06/13/12 08/04/20 Osmany Chavez MD [facility] [address] [id number] PCP - Assigned PCP 05/26/18 12/03/18 Dipesh Florez MD [facility] [address] [place] [address] PCP - General 08/05/20 Osmany Chavez MD [facility] [address] [address] Assigned PCP 05/26/18 06/07/19 Amauri Amezquita MD [facility] RETIRED JUL [address] [place] [address] Assigned PCP 06/08/19 11/29/19 Osmany Chavez MD [facility] [address], [place] [address] Assigned PCP 11/30/19 06/11/21 documented as of this encounter
--- OUTSIDE RECORDS SUMMARY | 2024-03-12 16:11 | XMS_ITS | Encounter Summary ---
Author Organization [facility] Address [address] [place] [address] Care Team Providers Care Size Maker Name Role Phone Amauri Amezquita MD Primary Care Provider Osmany Chavez MD Unavailable [phone] Osmany Chavez MD Unavailable [phone] Amauri Amezquita MD Unavailable [phone] Osmayn Chavez MD Unavailable [phone] Dipesh Florez MD Primary Care Provider [phone] Encounter Details Date Type Department Care Team (Late st Contact Info) Description 01/05/2012 Clinic Report (Concrete Mason) [address] [phone] Osmany Chavez MD [facility] [address] [place] [address] Social History Tobacco Use Types Packs/Day Years Used Date Smoking Tobacco: Never Assessed Sex and Gender Information Value Date Recorded Sex Assigned at Not on file Gender Identity Not on file Sexual Orientation Not on file documented as of this encounter Progress Notes * Osmany Chavez MD - 08/23/2012 7:24 PM CST CC/HPI: started 2 weeks ago, worse the past 3 days has been on Propranolol 80 mg LA daily for 2 mo, not sure that is helping much yet She presented with headache. It is located diffusely and in the frontal area. The symptom is described as acute, sharp and throbbing. The symptom is sudden in onset and ongoing. The symptom started 1.5 weeks ago. The complaint moderately limits activities and is incapacitating today. The frequency of episodes is unchanged. Pertinent other conditions include migraines. Important triggers include no known associated factors. The symptom is exacerbated by sunlight. Current Medication: Acetaminophen-Codeine 300 mg-30 mg Tab. () 1.5 mg-30 mcg Tab, 1 Tablet(s), PO, daily, 90 days, 3 refills, for a total of 90, start on June 15, 2011, end on February 29, 2012 and discontinued because: Discontinued. Fluticasone 50 mcg/Actuation Nasal [place], Susp, 2 [place], NASAL, daily, 30 days, 9 refills, for a total of 1 bottle, start on April 12, 2011 and end on February 05, 2012. ROS: Constitutional: The patient denied fatigue, fever, insomnia, night sweats, recent illness and weight loss. Eyes: The patient complained of photophobia. Neurologic: The patient complained of headache but denied dizziness, memory loss, mental status change, syncope and vision change. Vital Signs: data collected on 01/05/2012 01:08:28 PM by Natalia Lozano weight is 200 pounds clothed sitting heart rate is 60 bpm regular blood pressure at Left Arm while Sitting is 106/70 mmHg PE: Constitutional: GENERAL APPEARANCE: Overall: well nourished, well developed and in no acute distress. Musculoskeletal: HEAD AND NECK: Head: normocephalic. Neurologic: CRANIAL NERVES: Overall: cranial nerves 2-12 intact. Dx: (346.01) - C - Migraine, classic, intractable Rx: Propranolol SR 120 mg 24 hr Cap, 1 Capsule(s), PO, daily, 30 days, 1 refills, for a total of 30, start on January 05, 2012, end on March 04, 2012. Plan: A return visit is indicated in 2weeks. Patient Instructions: increase the Propranolol to 120 mg SA daily. Pt will recheck with [facility] in 2 weeks documented in this encounter Plan of Treatment Not on file documented as of this encounter Visit Diagnoses Not on filedocumented in this encounter Care Teams Size Maker Relationship Specialty Start Date End Date Amauri Amezquita MD [address] [place] [address] PCP - General Family Practice 06/13/12 08/04/20 Osmany Chavez MD [facility] [address] [address] PCP - Assigned PCP 05/26/18 12/03/18 Dipesh Florez MD [facility] [address] [place] [address] PCP - General 08/05/20 Osmany Chavez MD [facility] [address] [address] Assigned PCP 05/26/18 06/07/19 Amauri Amezquita MD [address] RETIRED JUL [address] [place], [place] [address] Assigned PCP 06/08/19 11/29/19 Osmany Chavez MD [facility] [address] [address] Assigned PCP 11/30/19 06/11/21 documented as of this encounter
--- OUTSIDE RECORDS SUMMARY | 2024-03-12 16:11 | XMS_ITS | Encounter Summary ---
Author Organization [facility] Address [address] [place] [address] Care Team Providers Care Bean Sprout Laborer Name Role Phone Amauri Amezquita MD Primary Care Provider Osmany Chavez MD Unavailable [phone] Osmany Chavez MD Unavailable [phone] Amauri Amezquita MD Unavailable [phone] Osmany Chavez MD Unavailable [phone] Dipesh Florez MD Primary Care Provider [phone] Encounter Details Date Type Department Care Team (Late st Contact Info) Description 09/07/2011 Clinic Report (Forklift Truck Mechanic) [address] [phone] Osmany Chavez MD [place] [address] [place] [address] Social History Tobacco Use Types Packs/Day Years Used Date Smoking Tobacco: Never Assessed Sex and Gender Information Value Date Recorded Sex Assigned at Not on file Gender Identity Not on file Sexual Orientation Not on file documented as of this encounter Progress Notes * Osmany Chavez MD - 08/23/2012 8:48 PM CST CC/HPI: had Migraine [place] on Sunday, got medication refill, Recurred Sunday & has been recurring daily since then. She takes the Tylenol # 3 at night, Advil during day She presented with headache. It is located diffusely. The symptom is described as sharp, stabbing and worsening. The symptom is sudden in onset. The symptom started 4 days ago. The complaint moderately limits activities and is incapacitating. The frequency of episodes is daily and increasing. Pertinent other conditions include migraines. Important triggers include no known associated factors. Current Medication: Junel FE (28) 1.5 mg-30 mcg Tab, 1 Tablet(s), PO, daily, 90 days, 3 refills, for a total of 90, start on June 15, 2011, end on February 29, 2012 and discontinued because: Discontinued. Atenolol 50 mg Tab, 1 Tablet(s), PO, daily, 90 days, 3 refills, for a total of 90, start on June 10, 2011, end on October 19, 2011, discontinued because: Discontinued and on propranolol. Fluticasone 50 mcg/Actuation Nasal [place], Susp, 2 [place], NASAL, daily, 30 days, 9 refills, for a total of 1 bottle, start on April 12, 2011 and end on February 05, 2012. Fexofenadine 180 mg Tab, 1 Tablet(s), PO, daily, 30 days, 12 refills, for a total of 30, start on December 02, 2010 and end on December 26, 2011. ROS: Constitutional: The patient denied fatigue, fever, insomnia, night sweats, recent illness and weight loss. Eyes: The patient complained of photophobia. Gastrointestinal: The patient complained of nausea. Neurologic: The patient complained of headache but denied dizziness, memory loss, mental status change and syncope. Vital Signs: data collected on 09/07/2011 09:56:00 AM by Maria Luisa Hernandez weight is 202 pounds clothed sitting heart rate is 84 bpm radial regular blood pressure at Left Arm while Sitting is 149/96 mmHg PE: Constitutional: GENERAL APPEARANCE: Overall: well nourished, well developed and in no acute distress. Eyes: OPHTHALMOSCOPIC EXAM: Overall: benign arterioles, benign arterial-venous crossing, benign fundi and sharp optic disc; CONJUNCTIVA/EYELIDS: Overall: conjunctiva clear, cornea clear and eyelids normal; PUPILS AND IRISES: Overall: pupils equal, round, reactive to light and accomodation. Musculoskeletal: HEAD AND NECK: Head: tenderness along skull; Cervical Spine: tender, full flexion, full extension and full rotation. Neurologic: MENTAL STATUS: Overall: alert and oriented; GAIT: Overall: no ataxia, no unsteadiness. Dx: (346.01) - C - Migraine, classic, intractable Rx: None Plan: She was given this form: 'Patient Medication Summary'. Patient Instructions: increase the Advil to 800 mg up to 4 times daily ICAN STUDIES PROFESSOR documented in this encounter Plan of Treatment Not on file documented as of this encounter Visit Diagnoses Not on filedocumented in this encounter Care Teams Bean Sprout Laborer Relationship Specialty Start Date End Date Amauri Amezquita MD [address] [facility] [place] [address] PCP - General Family Practice 06/13/12 08/04/20 Osmany Chavez MD [address] [address] PCP - Assigned PCP 05/26/18 12/03/18 Dipesh Florez MD [facility] [address] [place] [address] PCP - General 08/05/20 Osmany Chavez MD [address] [address] Assigned PCP 05/26/18 06/07/19 Amauri Amezquita MD [address] [place] [address] Assigned PCP 06/08/19 11/29/19 Osmany Chavez MD [address] [address] Assigned PCP 11/30/19 06/11/21 documented as of this encounter
--- OUTSIDE RECORDS SUMMARY | 2024-03-12 16:11 | XMS_ITS | Encounter Summary ---
Author Organization [facility] Address [address] [place] [address] Care Team Providers Care Gut Dropper Name Role Phone Amauri Amezquita MD Primary Care Provider Osmany Chavez MD Unavailable [phone] Osmany Chavez MD Unavailable [phone] Amauri Amezquita MD Unavailable [phone] Osmany Chavez MD Unavailable [phone] Dipesh Florez MD Primary Care Provider [phone] Encounter Details Date Type Department Care Team (Late st Contact Info) Description 08/28/2017 [facility] Medical Advice [facility] [address] [phone] Laura Beatty CMA Social History Tobacco Use Types Packs/Day Years [...] filedocumented in this encounter Additional Health Concerns Assessment Noted Time PHQ-9 Depression Total Score: 2 12/10/19 17 7:14 AM BUTTON PUNCHER documented as of this encounter Care Teams Gut Dropper Relationship Specialty Start Date End Date Amauri Amezquita MD [address] [place] [address] PCP - General Family Practice 06/13/12 08/04/20 Osmany Chavez MD [facility] [address] [address] PCP - Assigned PCP 05/26/18 12/03/18 Dipesh Florez MD [facility] [address] [place] [address] PCP - General 08/05/20 Osmany Chavez MD [facility] [address] [address] Assigned PCP 05/26/18 06/07/19 Amauri Amezquita MD [address] RETIRED [address]UL [address] [place] [address] Assigned PCP 06/08/19 11/29/19 Osmany Chavez MD [facility] [address] [address] Assigned PCP 11/30/19 06/11/21 documented as of this encounter
--- OUTSIDE RECORDS SUMMARY | 2024-03-12 16:11 | XMS_ITS | Encounter Summary ---
Author Organization [facility] Address [address] [place] [address]. [place] [address] Care Team Providers Care Flake Miller [employer] Name Role Phone Amauri Amezquita MD Primary Care Provider Osmany Chavez MD Unavailable [phone] Osmany Chavez MD Unavailable [phone] Amauri Amezquita MD Unavailable [phone] Osmany Chavez MD Unavailable [phone] Dipesh Florez MD Primary Care Provider [phone] Encounter Details Date Type Department Care Team (Late st Contact Info) Description 06/26/2017 [facility] Medical Advice [facility] [address] [address] Tomas Olvera MD [address] [place] [id number] Social History Tobacco Use Types Packs/Day Years [...] Total Score: 2 12/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 of this encounter Care Teams [employer] Relationship Specialty Start Date End Date Amauri Amezquita MD [address] [place] [address] PCP - General Family Practice 06/13/12 08/04/20 Osmany Chavez MD [facility] [address] [address] PCP - Assigned PCP 05/26/18 12/03/18 Dipesh Florez MD [facility] [address] [place] [address] PCP - General 08/05/20 Osmany Chavez MD [address] [address] Assigned PCP 05/26/18 06/07/19 Amauri Amezquita MD [address] [place] [address] Assigned PCP 06/08/19 11/29/19 Osmany Chavez MD [facility] [address] [address] Assigned PCP 11/30/19 06/11/21 documented as of this encounter
--- OUTSIDE RECORDS SUMMARY | 2024-03-12 16:11 | XMS_ITS | Encounter Summary ---
Author Organization [facility] Address [address] [place] [address] Care Team Providers Care Production Line Welder Name Role Phone Amauri Amezquita MD Primary Care Provider Osmany Chavez MD Unavailable [phone] Osmany Chavez MD Unavailable [phone] Amauri Amezquita MD Unavailable [phone] Osmany Chavez MD Unavailable [phone] Dipesh Florez MD Primary Care Provider [phone] Encounter Details Date Type Department Care Team (Late st Contact Info) Description 03/01/2012 Clinic Report (Haul Cane Brakeman) [address] [address] MD Social History Tobacco Use Types Packs/Day Years Used Date Smoking Tobacco: Never Assessed Sex and Gender Information Value Date Recorded Sex Assigned at Not on file Gender Identity Not on file Sexual Orientation Not on file documented as of this encounter Progress Notes * Jeanne Lane MD - 08/23/2012 6:35 PM CST CC/HPI: She presented with headache. It is located in the frontal area. The symptom is described as acute, constant, stabbing, throbbing and worsening. The symptom is gradual in onset. The symptom started 5 days ago and during childhood at puberty . The complaint is incapacitating. The frequency of episodes is weekly Bad PARSON's occur ant end of menstrual cycle . Episodes last 1-7 days. Pertinent other conditions include migraines. Significant medications include NSAID's, propranol for 5 mo and at 1st worked better than 25 mgm atenolol and has gotte n off BCP's fir 3 mo and acetaminophen#3 HS. Current Medication: Acetaminophen-Codeine 300 mg-30 mg Tab. Propranolol SR 120 mg 24 hr Cap, 1 Capsule(s), PO, daily, 30 days, for a total of 30, start on February 28, 2012, end on March 11, 2012 and discontinued because: Refilled. ROS: Constitutional: The patient complained of fatigue but denied fever, insomnia, night sweats, recent illness and weight loss. Eyes: The patient complained of photophobia but denied eye pain, vision change and visual disturbance. Ears/Nose/Throat/Neck: The patient complained of headache but denied hearing loss, nasal discharge, sinus congestion and sore throat. Respiratory: The patient denied asthma, cough, dyspnea/shortness of breath, pleuritic pain, productive sputum and wheezing. Gastrointestinal: The patient complained of nausea but denied abdominal pain, constipation, diarrhea, gastroesophageal reflux, hemorrhoids, melena and vomiting. Dermatologic: The patient denied itching and rash. Neurologic: The patient complained of headache but denied dizziness, memory loss, mental status change, paresis, paresthesia, seizure and syncope. Psychiatric: The patient denied anxiety, depression, insomnia and mood swings. Vital Signs: data collected on 03/01/2012 02:15:46 PM by Rocio Holter weight is 205 pounds 4.00 ounces clothed sitting heart rate is 72 bpm regular blood pressure (manual) at Left Arm while Sitting is 130/90 mmHg PE: Constitutional: GENERAL APPEARANCE: Overall: well nourished, well developed and in no acute distress Nourishment: obese-gynecoid; Evidence of Distress: in distress secondary to pain. Eyes: CONJUNCTIVA/EYELIDS: Overall: conjunctiva clear, cornea clear and eyelids normal. Respiratory: RESPIRATORY EFFORT/RHYTHM: Overall: no retractions and normal rate. Integument: INSPECTION OF SKIN: Overall: no rash, lesions. Neurologic: MENTAL STATUS: Overall: alert and oriented; GAIT: Overall: no ataxia, no unsteadiness; COORDINATION: Overall: no tremors. Psychiatric: ORIENTATION/CONSCIOUSNESS: Overall: oriented to person, place and time. Dx: (346.01) - C - Migraine, classic, intractable Rx: None Plan: She was given this form: 'Patient Medication Summary'. Patient Instructions: off work note for today Pt knows re [facility] policy of no further demerol IM 2) given card for [facility] and desires to see again as last saw in teens documented in this encounter Plan of Treatment Not on file documented as of this encounter Visit Diagnoses Not on filedocumented in this encounter Care Teams Production Line Welder Relationship Specialty Start Date End Date Amauri Amezquita MD [address] [facility] [place] [address] PCP - General Family Practice 06/13/12 08/04/20 Osmany Chavez MD [address] [address] PCP - Assigned PCP 05/26/18 12/03/18 Dipesh Florez MD [facility] [address] [place] [address] PCP - General 08/05/20 Osmany Chavez MD [address] [address] Assigned PCP 05/26/18 06/07/19 Amauri Amezquita MD [address] [place] [address] Assigned PCP 06/08/19 11/29/19 Osmany Chavez MD [address] [place] [address] Assigned PCP 11/30/19 06/11/21 documented as of this encounter
--- OUTSIDE RECORDS SUMMARY | 2024-03-12 16:11 | XMS_ITS | Encounter Summary ---
Author Organization [facility] Address [address] [place] [address] Care Team Providers Care Senior Cyber Security Analyst Name Role Phone Amauri Amezquita MD Primary Care Provider Osmany Chavez MD Unavailable [phone] Osmany Chavez MD Unavailable [phone] Amauri Amezquita MD Unavailable [phone] Osmany Chavez MD Unavailable [phone] Dipesh Florez MD Primary Care Provider [phone] Encounter Details Date Type Department Care Team (Late st Contact Info) Description 03/12/2012 Clinic Report (Recycle Worker) [address] [id number] Amauri Amezquita MD [address] [place], [place] [address] Social History Tobacco Use Types Packs/Day Years Used Date Smoking Tobacco: Never Assessed Sex and Gender Information Value Date Recorded Sex Assigned at Not on file Gender Identity Not on file Sexual Orientation Not on file documented as of this encounter Progress Notes * Amauri Amezquita MD - 08/23/2012 6:29 PM CST CC/HPI: She presented for pap smear only. Current contraception practice includes none. Pap smear history is significant for last abnormal performed on 02/28/11 and HPV positive. Menstrual history includes last menstrual period -02/12/12. Obstetrical history reveals 0 total pregnancies. The patient is sexually active. Gynecological complaints include none. Lifestyle is remarkable for no history of physical abuse, no history of sexual abuse, no history of verbal abuse and regular seatbelt use. Health maintenance issues include moderate exercise. ROS: None Vital Signs: data collected on 03/12/2012 08:02:09 AM by Natalia Lozano weight is 205 pounds clothed sitting heart rate is 64 bpm regular blood pressure at Left Arm while Sitting is 116/72 mmHg PE: Constitutional: GENERAL APPEARANCE: Overall: well nourished, well developed and in no acute distress. Genitourinary: CERVIX: Overall: no cervical motion tenderness, no discharge and no lesions; LABIA AND VAGINA: Overall: normal external genitalia, normal hair distribution, no discharge and no lesions. Dx: (795.00) - C - Abnormal pap smear (300.01) - C - Panic disorder, no agoraphobia (346.00) - C - Migraine, classic, not intractable Rx: Lorazepam 0.5 mg Tab, 1 Tablet(s), PO, BID PRN, for a total of 10, start on March 12, 2012, end on December 01, 2010, panic attack and flying anxiety. Propranolol SR 120 mg 24 hr Cap, 1 Capsule(s), PO, daily, 30 days, 5 refills, for a total of 30, start on March 12, 2012, end on September 07, 2012. Tylenol-Codeine #3 300 mg-30 mg Tab, 1-2 Tablet(s), PO, QID PRN, 5 refills, for a total of 30, start on March 12, 2012, end on August 31, 2011. Plan: Appt 6 months for repeat pap smear. Patient Instructions: None documented in this encounter Plan of Treatment Not on file documented as of this encounter Visit Diagnoses Not on filedocumented in this encounter Care Teams Senior Cyber Security Analyst Relationship Specialty Start Date End Date Amauri Amezquita MD [address] [place] [address] PCP - General Family Practice 06/13/12 08/04/20 Osmany Chavez MD [facility] [address] [address] PCP - Assigned PCP 05/26/18 12/03/18 Dipesh Florez MD [facility] [address] [place] [address] PCP - General 08/05/20 Osmany Chavez MD [facility] [address] [address] Assigned PCP 05/26/18 06/07/19 Amauri Amezquita MD [address] [place] [address] Assigned PCP 06/08/19 11/29/19 Osmany Chavez MD [facility] [address] [address] Assigned PCP 11/30/19 06/11/21 documented as of this encounter
--- OUTSIDE RECORDS SUMMARY | 2024-03-12 16:11 | XMS_ITS | Encounter Summary ---
Author Organization [facility] Address [address] [place] [address] Care Team Providers Care Bandmill Operator Name Role Phone Amauri Amezquita MD Primary Care Provider Osmany Chavez MD Unavailable [phone] Osmany Chavez MD Unavailable [phone] Amauri Amezquita MD Unavailable [phone] Osmany Chavez MD Unavailable [phone] Dipesh Florez MD Primary Care Provider [phone] Reason for Visit * Reason Onset Date Comments Refill Request 01/19/2014 Encounter Details Date Type Department Care Team (Late st Contact Info) Description 01/19/2014 [facility] Refill Initial Department Demond Cook Refill Request Social History Tobacco Use Types Packs/Day Years [...] on filedocumented in this encounter Care Teams Bandmill Operator Relationship Specialty Start Date End Date Amauri Amezquita MD [address] [place] [address] PCP - General Family Practice 06/13/12 08/04/20 Osmany Chavez MD [facility] [address] [address] PCP - Assigned PCP 05/26/18 12/03/18 Dipesh Fl[facility]z [facility] [address] [place] [address] PCP - General 08/05/20 Osmany Chavez MD [address] [address] Assigned PCP 05/26/18 06/07/19 Amauri Amezquita MD [address] [place] [address] Assigned PCP 06/08/19 11/29/19 Osmany Chavez MD [facility] [address] [address] Assigned PCP 11/30/19 06/11/21 documented as of this encounter
--- OUTSIDE RECORDS SUMMARY | 2024-03-12 16:11 | XMS_ITS | Clinical Summary ---
Author Organization [facility] Address [place], [place] [address] Care Team Providers Care Recreation Manager Name Role Phone Troy Roe MD Unavailable Unavailable Dipesh Florez MD Primary Care Provider [phone] Allergies Active Allergy Reactions Criticality Noted Date Comments Iodine *Unknown - Follow up needed 08/10/2020 Iopamidol Anaphylaxis,Shortnes s Of Breath,Chest Pain,Dyspnea High 08/05/2020 Other reaction(s): Chest Pain Semaglutide GI Upset 03/27/2023 Sumatriptan Dyspnea 10/06/2014 Medications Medication Sig Dispensed Refills Start Date End Date Status ACETAMINOPHEN WITH CODEINE (TYLENOL-CODEINE #3 ORAL) Take by mouth. Active IBUPROFEN ORAL Take by mouth. Active ondansetron (ZOFRAN ODT) 4 mg disintegrating tabletIndications:Nause a Place 1 tablet on the tongue every 8 hours if needed for Nausea/Vomiting . 12 tablet 0 03/25/2015 Active ondansetron (ZOFRAN ODT) 4 mg disintegrating tabletIndications:Concu ssion, without LOC, initial encounter Place 1 tablet on the tongue every 8 hours if needed for Nausea/Vomiting . 20 tablet 03/06/2017 Active Encounters Date Type Department Care Team Description 02/02/2024 3:55 PM CDT - 02/02/2024 6:04 PM CDT Emergency [facility] [place] [address] [place] [id number] Shira Benjamin PA-C Williams, Bradly Robert, MD Neck swelling (Primary Dx); Sore throat Discharge Disposition: Home Self Care from Last 3 Months Family History Medical History Relation Name Comments Good Health Father Good Health Mother Relation Name Status Comments Father Alive Mother Alive Social History Tobacco Use Types Packs/Day Years Used Date Smoking Tobacco: Former Smokeless Tobacco: Never Tobacco Cessation:Counseling Given: Not Answered Alcohol Use Standard Drinks/Week Comments No 0 (1 standard drink = 0.6 oz pur e alcohol) Sex and Gender Information Value Date Recorded Sex Assigned at Not on file Gender Identity Not on file Sexual Orientation Not on file Obstetrics History Last Filed Vital Signs Vital Sign Reading Time Taken Comments Blood Pressure 118/78 02/02/2024 4:20 PM CDT Pulse 78 02/02/2024 4:20 PM CDT Temperature 37.1 ??C (98.7 ??F) 02/02/2024 4:20 PM CD T Respiratory Rate 16 02/02/2024 4:20 PM CDT Oxygen Saturation 98% 02/02/2024 4:20 PM CDT Inhaled Oxygen Concentration - - Weight 93 kg (205 lb) 02/02/2024 4:20 PM CDT Height 175.3 cm (5' 9) 02/02/2024 4:20 PM CDT Body Mass Index 30.27 02/02/2024 4:20 PM CDT Plan of Treatment Health Maintenance Due Date Last Done Comments Tdap 1995 Depression screening for age 12+ 1996 HIV for age 15-65 1999 BMI (ht and wt on same day) for age 18+ 2002 Hepatitis C screening for ag e 18-79 2002 Tetanus booster 2004 Pap test for age 21-65 2005 COVID-19 vaccine series (2022-24 season) 2023 Influenza for age 9-49 06/01/2024 Pneumococcal series for age 6-64 Aged Out No longer eligible based on patient's age to complete this topic Procedures Procedure Name Priority Date/Time Associated Diagnosis Comments CT NECK SOFT TISSUE WO STAT 02/02/2024 4:57 PM CDT STREP A MOLECULAR AFF ONLY STAT 02/02/2024 4:28 PM CDT from Last 3 Months Results * CT NECK SOFT TISSUE WO (02/02/2024 4:57 PM CDT) Anatomical Region Laterality Modality NECK Computed Tomogra phy 02/02/2024 4:57 PM CDT Impressions 02/02/2024 5:41 PM CDT 1. ??No abnormal neck masses or collections. No cervical lymphadenopathy. Narrative 02/02/2024 5:41 PM CDT For Patients: As a result of the Cures Act, medical imaging exams and procedure reports are released immediately into your electronic medical record. You may view this report before your referring provider. If you have questions, please contact your health care provider. EXAM: CT NECK SOFT TISSUE WO LOCATION: THE [facility] DATE: 02/02/2024 INDICATION: Sore throat and gland swelling since November after having influenza. Pain/swelling episodically worse with episodic swelling at the angle of the mandible/submandibular right greater than left. Scheduled to see ENT. ??Allergy to IV contrast. COMPARISON: Contrast-enhanced CT neck 08/05/2020. TECHNIQUE: Routine CT Soft Tissue Neck without IV contrast. Multiplanar reformats. Dose reduction techniques were used. FINDINGS: MUCOSAL SPACES/SOFT TISSUES: Beam hardening/streak artifact from dental amalgam locally obscures assessment. Allowing for artifact, visualized tongue, mucosal space, and airway are otherwise unremarkable. Retropharyngeal, parapharyngeal and retail interior designer spaces are unremarkable. Glottic and paraglottic structures are unremarkable for noncontrast enhanced technique. Teeth are unremarkable. Temporomandibular joints are intact. LYMPH NODES: Small bilateral cervical chain lymph nodes are present, similar in appearance to the 08/05/2020 prior. No low-attenuation nodes are present. SALIVARY GLANDS: Normal parotid and submandibular glands. THYROID: Normal. VISUALIZED INTRACRANIAL/ORBITS/SINUSES: No abnormality of the visualized intracranial compartment or orbits. Visualized paranasal sinuses and mastoid air cells are clear. OTHER: No destructive osseous lesion. The included lung apices are clear. Procedure Note Abdelrahman Conway II, MD, PhD - 02/02/2024 For Patients: As a result of the Cures Act, medical imagingexams and procedure reports are released immediately into your electronicmedical record. You may view this report before your referring provider.If you have questions, please contact your health care provider. EXAM: CT NECK SOFT TISSUE WO LOCATION: THE [facility] DATE: 02/02/2024 INDICATION: Sore throat and gland swelling since November after havinginfluenza. Pain/swelling episodically worse with episodic swelling at theangle of the mandible/submandibular right greater than left. Scheduled tosee ENT. Allergy to IV contrast. COMPARISON: Contrast-enhanced CT neck 08/05/2020. TECHNIQUE: Routine CT Soft Tissue Neck without IV contrast. Multiplanarreformats. Dose reduction techniques were used. FINDINGS: MUCOSAL SPACES/SOFT TISSUES: Beam hardening/streak artifact from dentalamalgam locally obscures assessment. Allowing for artifact, visualizedtongue, mucosal space, and airway are otherwise unremarkable.Retropharyngeal, parapharyngeal and retail interior designer spaces are unremarkable.Glottic and paraglottic structures are unremarkable for noncontrastenhanced technique. Teeth are unremarkable. Temporomandibular joints areintact. LYMPH NODES: Small bilateral cervical chain lymph nodes are present,similar in appearance to the 08/05/2020 prior. No low-attenuation nodes arepresent. SALIVARY GLANDS: Normal parotid and submandibular glands. THYROID: Normal. VISUALIZED INTRACRANIAL/ORBITS/SINUSES: No abnormality of the visualizedintracranial compartment or orbits. Visualized paranasal sinuses andmastoid air cells are clear. OTHER: No destructive osseous lesion. The included lung apices areclear. IMPRESSION: 1. No abnormal neck masses or collections. No cervical lymphadenopathy. Jamal Hitchcock MD CT * STREP A MOLECULAR AFF ONLY (02/02/2024 4:28 PM CDT) Strep A Molecular Negative for Strep A nucleic acid Negative for Strep A nucleic acid 02/02/2024 4:41 PM CDT [facility] Throat SPECIMEN FROM THROAT / Unknown Non-Blood / Unknown 02/02/2024 4:28 PM CDT 02/02/2024 4:28 PM CDT Jamal Hitchcock MD MICROBIOLOGY [facility] [address] [place] [address] from Last 3 Months Care Teams Recreation Manager Relationship Specialty [place] [address] [place] [address] PCP - General 10/07/22 Troy Roe MD 06/11/13
--- OUTSIDE RECORDS SUMMARY | 2024-03-12 16:11 | XMS_ITS | Encounter Summary ---
Author Organization [facility] Address [address] [place] [address] Care Team Providers Care Director Learning Name Role Phone Amauri Amezquita MD Primary Care Provider Osmany Chavez MD Unavailable [phone] Osmany Chavez MD Unavailable [phone] Amauri Amezquita MD Unavailable [phone] Osmany Chavez MD Unavailable [phone] Dipesh Florez MD Primary Care Provider [phone] Encounter Details Date Type Department Care Team (Late st Contact Info) Description 12/02/2010 Clinic Report (Inside Sales Engineer) [address] [address] Amauri Amezquita MD XXX RETIRED JUL [address] [place] [address] Social History Tobacco Use Types Packs/Day Years Used Date Smoking Tobacco: Never Assessed Sex and Gender Information Value Date Recorded Sex Assigned at Not on file Gender Identity Not on file Sexual Orientation Not on file documented as of this encounter Progress Notes * Amauri Amezquita MD - 08/24/2012 12:12 AM CST CC/HPI: She presented with sinus congestion. It is located on both sides. The symptom is described as chronic. The symptom started 3 months ago. The frequency of episodes is daily. In addition, she presented with anxiety. Current Medication: Tylenol-Codeine #3 300 mg-30 mg Tab, 1-2 Tablet(s), PO, QID PRN, 5 refills, for a total of 30, start on March 29, 2010, end on January 17, 2011 and discontinued because: Refilled. Atenolol 50 mg Tab, 1 Tablet(s), PO, daily, 30 days, 5 refills, for a total of 30, start on November 29, 2010, end on June 10, 2011 and discontinued because: Discontinued. Fluticasone 50 mcg/Actuation Nasal [place], Susp, 2 [place], NASAL, daily, 10 days, for a total of 1 bottle, start on May 06, 2010, end on March 13, 2011 and discontinued because: Discontinued. Loestrin 1.5/30 (21) 1.5 mg-30 mcg Tab, 1 Tablet(s), PO, daily, 28 days, 1 refills, for a total of 28, start on November 04, 2010, end on December 25, 2010 and discontinued because: Refilled. ROS: None Vital Signs: data collected on 12/02/2010 01:48:09 PM by Pat Jang weight is 192 pounds clothed sitting heart rate is 82 bpm radial regular blood pressure at Left Arm while Sitting is 128/70 mmHg PE: Constitutional: GENERAL APPEARANCE: Overall: well nourished, well developed and in no acute distress. Eyes: CONJUNCTIVA/EYELIDS: Overall: conjunctiva clear, cornea clear and eyelids normal; PUPILS AND IRISES: Overall: pupils equal, round, reactive to light and accomodation. Ears/Nose/Throat: OTOSCOPIC EXAM: Overall: external auditory canals clear and tympanic membranes clear; INTERNAL NOSE: Sinus tenderness: left frontal and left maxillary; LIPS/TEETH/GINGIVA: Overall: benign lips, normal dentition, benign gingiva and no masses; ORAL CAVITY/PHARYNX/LARYNX: Overall: tonsils benign, oropharyngeal mucosa clear and no masses. Neck: INSPECTION OF NECK: Overall: normal appearance and no carotid bruits. Respiratory: AUSCULTATION: Overall: breath sounds clear bilaterally; RESPIRATORY EFFORT/RHYTHM: Overall: no retractions and normal rate. Cardiovascular: AUSCULTATION OF HEART: Overall: regular rate, regular rhythm, normal heart sounds and no murmurs. Dx: (478.19) - C - Disease nasal cavity/sinuses, other (300.00) - C - Anxiety state, unspecified Rx: Fexofenadine 180 mg Tab, 1 Tablet(s), PO, daily, 30 days, 12 refills, for a total of 30, start on December 02, 2010, end on December 26, 2011. Lorazepam 0.5 mg Tab, 1 Tablet(s), PO, BID PRN, 1 refills, for a total of 10, start on December 02, 2010, end on December 01, 2010, panic attack. Plan: Will use salt water nasal sprays prn. Will use a graciela pot prn. Will treat symptomatically and see back prn no improvement. Will see back pending review of lab tests. She was given this form: 'Patient Medication Summary'. Patient Instructions: None * Amauri Amezquita MD - 08/24/2012 12:12 AM CST CC/HPI: None Current Medication: Tylenol-Codeine #3 300 mg-30 mg [...] discontinued because: Discontinued. Fluticasone 50 mcg/Actuation Nasal [place], Susp, 2 [place], NASAL, daily, 10 days, for a total of 1 bottle, start on May 06, 2010, end on March 13, 2011 and discontinued because: Discontinued. Loestrin 1.5/30 (21) 1.5 mg-30 mcg Tab, 1 Tablet(s), PO, daily, 28 days, 1 refills, for a total of 28, start on November 04, 2010, end on December 25, 2010 and discontinued because: Refilled. ROS: None PE: None Dx: (784.99) - C - Other symptoms involving head and neck Rx: None 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: None documented in this encounter Plan of Treatment Not on file documented as of this encounter Visit Diagnoses Not on filedocumented in this encounter Care Teams Director Learning Relationship Specialty Start Date End Date Amauri Amezquita MD [address] [place] [address] PCP - General Family Practice 06/13/12 08/04/20 Osmany Chavez MD [address] [address] PCP - Assigned PCP 05/26/18 12/03/18 Dipesh Florez MD [facility] [address] [place] [address] PCP - General 08/05/20 Osmany Chavez MD [facility] [address] [address] Assigned PCP 05/26/18 06/07/19 Amauri Amezquita MD XXX RETIRED JUL 2022 [place] [address] Assigned PCP 06/08/19 11/29/19 Osmany Chavez MD [address] [address] Assigned PCP 11/30/19 06/11/21 documented as of this encounter
--- OUTSIDE RECORDS SUMMARY | 2024-03-12 16:11 | XMS_ITS | Encounter Summary ---
Author Organization [facility] Address [address] [place] [address] Care Team Providers Care Client Customer Manager Name Role Phone Dipesh Florez MD Primary Care Provider [phone] Encounter Details Date Type Department Care Team (Latest Contact Info) Description 11/25/1997 Orders Only [place] [address] Social History Tobacco Use Types Packs/Day Years [...] 3:15 PM CDT Appointment [facility] [address] [address] [place] [address] [place] [address] 03/27/2024 1:45 PM CDT Appointment [facility] [place] [address] Ear, Nose, and Throat [address] [place] [phone] Paras Hardy, PASamirC [address] [place] [address] 04/10/2024 3:30 PM CDT Appointment [facility] [place] [address] Vascular Surgery [address] [place] [address] Rupesh Figueroa MD 6500 [place], [place] 233416 04/18/2024 11:10 AM CDT Appointment [facility] [place] [address] [place] [phone] Loreta Siegel OD 3900 [place], [place] [address] 05/23/2024 9:50 AM CDT Telemedicine [facility] [address] [place], [place] [phone] Claudia Roach, DIESEL TECHNICIAN MECHANIC, BED RUBBER 2060 [place], [place] 433826 documented as of this encounter Visit Diagnoses Not on filedocumented in this encounter Additional Health Concerns Infection Onset Date Last Indicated Resolved Time R/O COVID19 08/06/2020 08/06/2020 08/07/2020 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
--- OUTSIDE RECORDS SUMMARY | 2024-03-12 16:11 | XMS_ITS | Encounter Summary ---
Author Organization [facility] Address [address] [place] [address] Care Team Providers Care Sewer Pipe Layer Helper Name Role Phone Amauri Amezquita MD Primary Care Provider Osmany Chavez MD Unavailable [phone] Osmany Chavez MD Unavailable [phone] Amauri Amezquita MD Unavailable [phone] Osmany Chavez MD Unavailable [phone] Dipesh Florez MD Primary Care Provider [phone] Encounter Details Date Type Department Care Team (Late st Contact Info) Description 02/24/2011 Clinic Report (Belt Molder) [address] [address] Amauri Amezquita MD XXX RETIRED JUL 20[address] [place] [address] Social History Tobacco Use Types Packs/Day Years Used Date Smoking Tobacco: Never Assessed Sex and Gender Information Value Date Recorded Sex Assigned at Not on file Gender Identity Not on file Sexual Orientation Not on file documented as of this encounter Progress Notes * Amauri Amezquita MD - 08/23/2012 11:08 PM CST CC/HPI: She presented with headache. It is located diffusely and in the occipital area. The symptom is described as acute, intermittent and sharp. The symptom is gradual in onset. The symptom started 1 weeks ago. The complaint moderately limits activities. The frequency of episodes is daily. Current Medication: Fexofenadine 180 mg Tab, 1 Tablet(s), PO, daily, 30 days, 12 refills, for a total of 30, start on December 02, 2010 and end on December 26, 2011. Atenolol 50 mg Tab, 1 Tablet(s), PO, daily, 30 days, 5 refills, for a total of 30, start on November 29, 2010, end on June 10, 2011 and discontinued because: Discontinued. Fluticasone 50 mcg/Actuation Nasal [place], Susp, 2 [place], NASAL, daily, 10 days, for a total of 1 bottle, start on May 06, 2010, end on March 13, 2011 and discontinued because: Discontinued. Loestrin 1.5/30 (21) 1.5 mg-30 mcg Tab, 1 Tablet(s), PO, daily, 28 days, 2 refills, for a total of 28, start on January 17, 2011, end on April 09, 2011 and discontinued because: Refilled. ROS: None Vital Signs: data collected on 02/24/2011 02:50:21 PM by Ana Napoles weight is 194 pounds clothed sitting heart rate is 78 bpm regular blood pressure at Left Arm while Sitting is 130/80 mmHg PE: Constitutional: GENERAL APPEARANCE: Overall: well nourished and well developed; Evidence of Distress: in distress secondary to pain. Dx: (346.01) - C - Migraine, classic, intractable Rx: Demerol 100 mg/mL Injection, 0.5 Milliliter(s), Inj, 1 days, for a total of 0.5 cc, start on February 24, 2011, end on February 24, 2011. Vistaril 50 mg Injectable, 1 Milliliter(s), IM, 1 days, for a total of 1 ml, start on February 24, 2011, end on February 24, 2011. Plan: Will see back as needed if symptoms don't resolve. She was given this form: 'Patient Medication Summary'. Patient Instructions: None documented in this encounter Plan of Treatment Not on file documented as of this encounter Visit Diagnoses Not on filedocumented in this encounter Care Teams Sewer Pipe Layer Helper Relationship Specialty Start Date End Date Amauri Amezquita MD [address] [place] [address] PCP - General Family Practice 06/13/12 08/04/20 Osmany Chavez MD [facility] [address] [address] PCP - Assigned PCP 05/26/18 12/03/18 Dipesh Florez MD [facility] [address] [place] [address] PCP - General 08/05/20 Osmany Chavez MD [address] [address] Assigned PCP 05/26/18 06/07/19 Amauri Amezquita MD XXX RETIRED JUL 2022 [place] [address] Assigned PCP 06/08/19 11/29/19 Osmany Chavez MD [facility] [address] [address] Assigned PCP 11/30/19 06/11/21 documented as of this encounter
--- OUTSIDE RECORDS SUMMARY | 2024-03-12 16:11 | XMS_ITS | Encounter Summary ---
Author Organization [facility] Address [address] [place] [address] Care Team Providers Care Paper Stripper Name Role Phone Dipesh Florez MD Primary Care Provider [phone] Encounter Details Date Type Department Care Team (Latest Contact Info) Description 11/15/1995 Orders Only [facility] [address] [address], [place] [address] Social History Tobacco Use Types Packs/Day Years [...] 3:15 PM CDT Appointment [facility] [address] [address] [place] [address] [place] [address] 03/27/2024 1:45 PM CDT Appointment [facility] [place] [address] Ear, Nose, and Throat [address] [place] [address] Paras Hardy PA-C [address] [place], [place] [address] 04/10/2024 3:30 PM CDT Appointment [facility] [place] [address] Vascular Surgery [address] [place] [phone] Rupesh Figueroa MD 6590 [place] [address] 04/18/2024 11:10 AM CDT Appointment [facility] [place] [address] [place] [phone] Loreta Siegel OD 3900 [place], [place] [address] 05/23/2024 9:50 AM CDT Telemedicine [facility] [address] [place], [place] [address] Claudia Roach, MANAGER IMAGING, BAKER HELPER 0140 [place], [place] [address]776 documented as of this encounter Visit Diagnoses Not on filedocumented in this encounter Additional Health Concerns Infection Onset Date Last Indicated Resolved Time R/O COVID19 08/06/2020 08/06/2020 08/07/2020 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
--- OUTSIDE RECORDS SUMMARY | 2024-03-12 16:11 | XMS_ITS | Encounter Summary ---
Author Organization [facility] Address [address] [place] [address] Care Team Providers Care Sub Arc Operator Name Role Phone Dipesh Florez MD Primary Care Provider [phone] Encounter Details Date Type Department Care Team (Latest Contact Info) Description 04/01/1997 Orders Only [place] [address] Social History Tobacco Use Types Packs/Day Years [...] 3:15 PM CDT Appointment [facility] [address] [address] [place] [address] [place] [address] 03/27/2024 1:45 PM CDT Appointment [facility] [place] [address] Ear, Nose, and Throat [address] [place] [phone] Paras Hardy, PASamirC [address] [place] [address] 04/10/2024 3:30 PM CDT Appointment [facility] [place] [address] Vascular Surgery [address] [place] [address] Rupesh Figueroa MD 6500 [place], [place] [address] 04/18/2024 11:10 AM CDT Appointment [facility] [place] [address] [place] [phone] Loreta Siegel OD 3900 [place], [place] [address] 05/23/2024 9:50 AM CDT Telemedicine [facility] [facility] [address] [place], [place] [phone] Claudia Roach, WEIGHT ENGINEER, DIORAMIST 0360 [place], [place] [address]006 documented as of this encounter Visit Diagnoses Not on filedocumented in this encounter Additional Health Concerns Infection Onset Date Last Indicated Resolved Time R/O COVID19 08/06/2020 08/06/2020 08/07/2020 2:[address] DRAFTSPERSON documented as of this encounter Care Teams Sub Arc Operator Relationship Specialty [place] [address] [place] [address] PCP - General Family Practice 08/19/19 documented as of this encounter
--- OUTSIDE RECORDS SUMMARY | 2024-03-12 16:11 | XMS_ITS | Encounter Summary ---
Author Organization [facility] Address [address] [place] [address] Care Team Providers Care Stacker Driver Name Role Phone Amauri Amezquita MD Primary Care Provider Osmany Chavez MD Unavailable [phone] Osmany Chavez MD Unavailable [phone] Amauri Amezquita MD Unavailable [phone] Osmany Chavez MD Unavailable [phone] Dipesh Florez MD Primary Care Provider [phone] Encounter Details Date Type Department Care Team (Late st Contact Info) Description 02/28/2011 Clinic Report (Dorr Operator) [address] [address] Amauri Amezquita MD XXX RETIRED JUL 2022 [place] [address] Social History Tobacco Use Types Packs/Day Years Used Date Smoking Tobacco: Never Assessed Sex and Gender Information Value Date Recorded Sex Assigned at Not on file Gender Identity Not on file Sexual Orientation Not on file documented as of this encounter Progress Notes * Amauri Amezquita MD - 08/23/2012 11:07 PM CST CC/HPI: She presented for pap smear only. Current contraception practice includes oral contraceptives. Pap smear history is significant for last normal performed on -10/12/08. Menstrual history includes last menstrual period -02/21/11. Obstetrical history reveals 0 total pregnancies. The patient is sexually active. Gynecological complaints include none. Lifestyle is remarkable for no history of physical abuse, no history of sexual abuse, no history of verbal abuse and regular seatbelt use. Health maintenance issues include minimal exercise. Cardiovascular risk factors include family history of cardiovascular disease. Current Medication: Fexofenadine 180 mg Tab, 1 [...] discontinued because: Discontinued. Fluticasone 50 mcg/Actuation Nasal [place], Susp, 2 [place], NASAL, daily, 10 days, for a total of 1 bottle, start on May 06, 2010, end on March 13, 2011 and discontinued because: Discontinued. Loestrin 1.5/30 (21) 1.5 mg-30 mcg Tab, 1 Tablet(s), PO, daily, 28 days, 2 refills, for a total of 28, start on January 17, 2011, end on April 09, 2011 and discontinued because: Refilled. ROS: Constitutional: The patient denied recent illness. Musculoskeletal: The patient complained of bone pain (due to love splints.). Vital Signs: data collected on 02/28/2011 01:42:41 PM by Natalia Lozano weight is 193 pounds clothed sitting heart rate is 64 bpm regular blood pressure at Left Arm while Sitting is 112/70 mmHg PE: Constitutional: GENERAL APPEARANCE: Overall: well nourished, well developed and in no acute distress. Genitourinary: UTERUS: Overall: normal size, normal contour, normal shape, normal mobility, nontender and no mass; CERVIX: Overall: no cervical motion tenderness, no discharge and no lesions; LABIA AND VAGINA: Overall: normal hair distribution, no discharge and no lesions; ADNEXA/PARAMETRIA: Overall: no tenderness, no enlargement, no mass lesions and normal size; URETHRA: Overall: no masses; BLADDER: Overall: no tenderness. Dx: (844.9) - C - Love splints (V72.31) - C - Screening, pap (V76.2) - C - Pap smear for cervical cancer screening Rx: Lidocaine 5 % Ointment, 1 Application, TOP, QID PRN, 30 days, 3 refills, for a total of 2 TUBES, start on February 28, 2011, end on June 27, 2011. Plan: Will treat symptomatically and see back prn no improvement. She was given this form: 'Patient Medication Summary'. Patient Instructions: None documented in this encounter Plan of Treatment Not on file documented as of this encounter Visit Diagnoses Not on filedocumented in this encounter Care Teams Stacker Driver Relationship Specialty Start Date End Date Amauri Amezquita MD [address] [facility] [place] [address] PCP - General Family Practice 06/13/12 08/04/20 Osmany Chavez MD [address] [address] PCP - Assigned PCP 05/26/18 12/03/18 Dipesh Florez MD [facility] [address] [place] [address] PCP - General 08/05/20 Osmany Chavez MD [facility] [address] [address] Assigned PCP 05/26/18 06/07/19 Amauri Amezquita MD XXX RETIRED JUL 20[address] [place] [address] Assigned PCP 06/08/19 11/29/19 Osmany Chavez MD [address] [address] Assigned PCP 11/30/19 06/11/21 documented as of this encounter
--- OUTSIDE RECORDS SUMMARY | 2024-03-12 16:11 | XMS_ITS | Encounter Summary ---
Author Organization [facility] Address [address] [place] [address] Care Team Providers Care Supervisor Shop Name Role Phone Dipesh Florez MD Primary Care Provider [phone] Encounter Details Date Type Department Care Team (Latest Contact Info) Description 03/09/1998 Orders Only Orin Soriano Social History Tobacco Use Types Packs/Day Years [...] 3:15 PM CDT Appointment [facility] [address] [place] [address] [place] [address] [place] [address] 03/27/2024 1:45 PM CDT [facility] [address] [facility] [address] [place] [phone] Paras Hardy PA-C [address] [place] [address] 04/10/2024 3:30 PM CDT [facility] [address] [facility] [address] [place] [address] Rupesh Figueroa MD 6355 [place], [place] [address] 04/18/2024 11:10 AM CDT Appointment [facility] [place] [address] [place] [phone] Loreta Siegel, OD 3900 [place], [place] [address] 05/23/2024 9:50 AM CDT Telemedicine [facility] [address] [place], [place] [address] Claudia Roach, GREASE REFINING SUPERVISOR, ROAD SUPERVISOR [address] [place], [place] [address] documented as of this encounter Visit Diagnoses Not on filedocumented in this encounter Additional Health Concerns Infection Onset Date Last Indicated Resolved Time R/O COVID19 08/06/2020 08/06/2020 08/07/2020 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
--- OUTSIDE RECORDS SUMMARY | 2024-03-12 16:12 | XMS_ITS | Encounter Summary ---
Author Organization [facility] Address [address] [place] [address]. [place] [address] Care Team Providers Care Brush Fabrication Supervisor Name Role Phone Amauri Amezquita MD Primary Care Provider Osmany Chavez MD Unavailable [phone] Osmany Chavez MD Unavailable [phone] Amauri Amezquita MD Unavailable [phone] Osmany Chavez MD Unavailable [phone] Dipesh Florez MD Primary Care Provider [phone] Encounter Details Date Type Department Care Team (Late st Contact Info) Description 09/06/2009 Clinic Report (Filter Tank Tender Helper Head) [facility] [address] [place] [id number] Rich David DO XXX XXX [address] [place], [place] [id number] [phone] Social History Tobacco Use Types Packs/Day Years Used Date Smoking Tobacco: Never Assessed Sex and Gender Information Value Date Recorded Sex Assigned at Not on file Gender Identity Not on file Sexual Orientation Not on file documented as of this encounter Progress Notes * Rich David DO - 08/24/2012 6:08 AM CST CC/HPI: Started Sat. Throat hurts badly, tongue hurts, had a sinus infection and it hasn't gone away yet. Finished a course of amoxicillin about a week ago . She Ears hurt. Left ear and gland hurt more than right. Tonsils were removed. Headache, Has some blood when she blows her nose. In contact with strep and H1N1 last week.Contact with Strep on She presented with sore throat. It is located in the posterior pharyngeal area, on both sides and on the right worse than left. The symptom is described as aching and acute. The symptom is sudden in onset, improved during the day and ongoing. The symptom started 3 days ago. The complaint limits oral intake not eating aqnd only a few sips of water today. Important triggers include no known associated factors and swallowing. The symptom is alleviated by voice rest. The symptom is exacerbated by voice use. Patient denies abdominal pain, fever, hearing loss and hoarseness. Associated signs and symptoms include cough, decreased energy level, decreased oral intake, diarrhea, ear pressure right nmore than left, fatigue, headache, ill contacts at work, lymphadenopathy, malaise, nasal congestion, nasal discharge, otalgia, sinus pressure, sinusitis and unable to swallow difficult. Current Medication: Ondansetron HCl 4 mg Tab, 1 Tablet(s), PO, Q6-8H&PRN, for a total of 4, start on July 22, 2009, end on October 14, 2009, For migraine induced nausea and discontinued because: Refilled. Lorazepam 0.5 mg Tab, 1 Tablet(s), PO, BID PRN, for a total of 10, end on March 31, 2010, panic attack and discontinued because: Refilled. Atenolol 50 mg Tab, 1 Tablet(s), PO, daily, 30 days, 5 refills, for a total of 30, start on August 20, 2009, end on February 21, 2010, making melinda and discontinued because: Refilled. Sulindac 200 mg Tab, 1 Tablet(s), PO, BID, 30 days, 5 refills, for a total of 60, start on April 24, 2009, end on October 14, 2009 and discontinued because: Discontinued. ROS: Constitutional: The patient complained of chills, fatigue, malaise and recent illness but denied fever. Eyes: The patient denied eye pain, vision change and visual disturbance. Ears/Nose/Throat/Neck: The patient complained of dysphagia, headache, nasal discharge, oral pain (tongue), otalgia, sinus congestion and sore throat but denied hearing loss and hoarseness. Cardiovascular: The patient denied chest pain/pressure, edema, exercise intolerance and palpitations. Respiratory: The patient complained of chest congestion and cough. Gastrointestinal: The patient denied abdominal pain, constipation, diarrhea and gastroesophageal reflux. Genitourinary/Nephrology: The patient denied dysuria, flank pain and urinary incontinence. Musculoskeletal: The patient denied arthralgia(s), muscle weakness and myalgias. Dermatologic: The patient denied itching and rash. Psychiatric: The patient denied anxiety, depression, insomnia and mood swings. Hematologic/Lymphatic: The patient denied abnormal bleeding and bruising and abnormal ecchymoses. Vital Signs: data collected on 09/06/2009 10:14:54 AM by Ambreen Wallace weight is 231 pounds clothed temperature is 98.5 F sitting heart rate is 60 bpm regular blood pressure at Left Arm while Sitting is 122/80 mmHg PE: Rapid strep was negative, 24 hour culture pending. Constitutional: GENERAL APPEARANCE: Overall: well nourished, well developed and in no acute distress. Eyes: CONJUNCTIVA/EYELIDS: Overall: conjunctiva clear and eyelids normal. Ears/Nose/Throat: INTERNAL NOSE: Left nasal cavity: mucosal edema; Right nasal cavity: mucosal edema; ORAL CAVITY/PHARYNX/LARYNX: Posterior Pharynx: purulent post nasal drainage. Neck: INSPECTION OF NECK: Overall: normal appearance and no carotid bruits. Respiratory: AUSCULTATION: Overall: breath sounds clear bilaterally; RESPIRATORY EFFORT/RHYTHM: Overall: no retractions and normal rate. Cardiovascular: AUSCULTATION OF HEART: Overall: regular rate, regular rhythm, normal heart sounds and no murmurs; EXTREMITIES: Overall: no clubbing and no edema. Genitourinary: RENAL: flank No CVA tenderness. Lymphatic: NECK NODES: Left anterior cervical chain: tender; Right anterior cervical chain: tender; OTHER NODES: Overall: supraclavicular chain benign. Integument: INSPECTION OF SKIN: Overall: no rash, lesions. Neurologic: MENTAL STATUS: Overall: alert and oriented; MOTOR: Overall: normal bulk, tone. Psychiatric: ORIENTATION/CONSCIOUSNESS: Overall: oriented to person, place and time; BEHAVIOR/PSYCHOMOTOR ACTIVITY: Overall: no tics, normal psychomotor activity; MOOD AND AFFECT: Overall: normal mood and affect; COGNITION/MEMORY: Overall: immediate, recent, remote memory intact and normal concentration, intelligence; JUDGMENT/INSIGHT: Overall: judgment and insight intact. Dx: (462) - C - Pharyngitis, acute 465.9 Upper respiratory infection, acute, NOS Rx: Cefprozil 500 mg Tab, 1 Tablet(s), PO, daily, 10 days, for a total of 10, start on September 06, 2009, end on September 15, 2009. Plan: A rapid strep was negative. A throat culture was obtained and is pending. The patient was started on Cefprozil 500 mg one daily for 10 days. The patient was given a note for work to be off work for the next 48 hours. Advised to call if no progress over the next 2-3 days clearing within a week. Followup sooner if symptoms worsening. Patient Instructions: None NING DEVELOPMENT MANAGER * Rich David, DO - 08/24/2012 6:08 AM CST CC/HPI: She presented with Lab/XRay Only. Current Medication: Cefprozil 500 mg Tab, 1 Tablet(s), PO, daily, 10 days, for a total of 10, start on September 06, 2009 and end on September 15, 2009. Ondansetron HCl 4 mg Tab, 1 Tablet(s), PO, Q6-8H&PRN, for a total of 4, start on July 22, 2009, end on October 14, 2009, For migraine induced nausea and discontinued because: Refilled. Lorazepam 0.5 mg Tab, 1 Tablet(s), PO, BID PRN, for a total of 10, end on March 31, 2010, panic attack and discontinued because: Refilled. Atenolol 50 mg Tab, 1 Tablet(s), PO, daily, 30 days, 5 refills, for a total of 30, start on August 20, 2009, end on February 21, 2010, making melinda and discontinued because: Refilled. Sulindac 200 mg Tab, 1 Tablet(s), PO, BID, 30 days, 5 refills, for a total of 60, start on April 24, 2009, end on October 14, 2009 and discontinued because: Discontinued. ROS: None PE: None Dx: 462 Pharyngitis, acute Rx: None 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: None NING DEVELOPMENT MANAGER documented in this encounter Plan of Treatment Not on file documented as of this encounter Visit Diagnoses Not on filedocumented in this encounter Care Teams Brush Fabrication Supervisor Relationship Specialty Start Date End Date Amauri Amezquita MD [address] [place] [address] PCP - General Family Practice 06/13/12 08/04/20 Osmany Chavez MD [address] [address] PCP - Assigned PCP 05/26/18 12/03/18 Dipesh Florez MD [facility] [address] [place] [address] PCP - General 08/05/20 Osmany Chavez MD [address] [address] Assigned PCP 05/26/18 06/07/19 Amauri Amezquita MD [facility] [address] [place] [address] Assigned PCP 06/08/19 11/29/19 Osmany Chavez MD [facility] [address] [place] [address] Assigned PCP 11/30/19 06/11/21 documented as of this encounter
--- OUTSIDE RECORDS SUMMARY | 2024-03-12 16:12 | XMS_ITS | Encounter Summary ---
Author Organization [facility] Address [address] [place] [address] Care Team Providers Care Assembler Arranger Name Role Phone Amauri Amezquita MD Primary Care Provider Osmany Chavez MD Unavailable [phone] Osmany Chavez MD Unavailable [phone] Amauri Amezquita MD Unavailable [phone] Osmany Chavez MD Unavailable [phone] Dipesh Florez MD Primary Care Provider [phone] Encounter Details Date Type Department Care Team (Late st Contact Info) Description 11/18/2009 Clinic Report (Budget Specialist) [address] [id number] Osmany Chavez MD [facility] [address] [place] [address] Social History Tobacco Use Types Packs/Day Years Used Date Smoking Tobacco: Never Assessed Sex and Gender Information Value Date Recorded Sex Assigned at Not on file Gender Identity Not on file Sexual Orientation Not on file documented as of this encounter Progress Notes * Osmany Chavez MD - 08/24/2012 5:14 AM CST CC/HPI: drainage from lesion started on Sunday She presented with cyst. It is located on the chin. The symptom is described as dull pain, firm and worsening. The symptom is sudden in onset. The symptom started 5 days ago. The complaint is moderate. The frequency of episodes is daily. In addition, she presented with headache. It is located diffusely. The symptom is described as aching. The symptom is sudden in onset. The symptom started 5 days ago. The complaint moderately limits activities. The frequency of episodes is daily. Current Medication: Tylenol-Codeine #3 300 mg-30 mg Tab, 1-2 Tablet(s), PO, QID PRN, end on March 28, 2010 and discontinued because: Refilled. Atenolol 50 mg Tab, 1 Tablet(s), PO, daily, 30 days, 5 refills, for a total of 30, start on August 20, 2009, end on February 21, 2010, making melinda and discontinued because: Refilled. Lorazepam 0.5 mg Tab, 1 Tablet(s), PO, BID PRN, for a total of 10, end on March 31, 2010, panic attack and discontinued because: Refilled. Nasonex 50 mcg/Actuation [place], 1 , NASAL, daily, 30 days, 2 refills, for a total of 1, start on October 15, 2009, end on January 12, 2010 and generic. ROS: Constitutional: The patient denied fatigue, fever, insomnia, night sweats, recent illness and weight loss. Ears/Nose/Throat/Neck: The patient complained of headache but denied hearing loss, nasal discharge, sinus congestion and sore throat. Dermatologic: The patient complained of cyst (under chin) but denied itching and rash. Vital Signs: data collected on 11/18/2009 03:37:11 PM by Maria Luisa Hernandez weight is 221 pounds clothed sitting heart rate is 64 bpm radial regular blood pressure at Left Arm while Sitting is 116/68 mmHg PE: Constitutional: GENERAL APPEARANCE: Overall: well nourished, well developed and in no acute distress. Ears/Nose/Throat: EXTERNAL EAR: Overall: normal appearance; EXTERNAL NOSE: Overall: benign appearance, no masses and non-tender; OTOSCOPIC EXAM: Overall: external auditory canals clear and tympanic membranes clear; ORAL CAVITY/PHARYNX/LARYNX: Overall: tonsils benign, oropharyngeal mucosa clear and no masses. Neck: INSPECTION OF NECK: Swelling: tender and no drainage. Musculoskeletal: HEAD AND NECK: Head: tenderness along skull. Integument: INSPECTION OF SKIN: Dermatitis: erythema; Location: neck; PALPATION: Neck: tender and induration. Dx: (706.2) - C - Sebaceous cyst (chin) (307.81) - C - Headache, tension Rx: Augmentin 875 mg-125 mg Tab, 1 Tablet(s), PO, BID, 10 days, for a total of 20, start on November 18, 2009, end on November 27, 2009. Plan: A return visit is indicated in 2weeks. 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 ICULUM SUPERVISOR documented in this encounter Plan of Treatment Not on file documented as of this encounter Visit Diagnoses Not on filedocumented in this encounter Care Teams Assembler Arranger Relationship Specialty Start Date End Date Amauri Amezquita MD [address] [place] [address] PCP - General Family Practice 06/13/12 08/04/20 Osmany Chavez MD [address] [address] PCP - Assigned PCP 05/26/18 12/03/18 Dipesh Florez MD [facility] [place] [address] [place] [address] PCP - General 08/05/20 Osmany Chavez MD [facility] [address] [address] Assigned PCP 05/26/18 06/07/19 Amauri Amezquita MD [address] [place] [address] Assigned PCP 06/08/19 11/29/19 Osmany Chavez MD [facility] [address] [address] Assigned PCP 11/30/19 06/11/21 documented as of this encounter
--- OUTSIDE RECORDS SUMMARY | 2024-03-12 16:12 | XMS_ITS | Encounter Summary ---
Author Organization [facility] Address [address] [place] [address] Care Team Providers Care Geological Engineer Name Role Phone Amauri Amezquita MD Primary Care Provider Osmany Chavez MD Unavailable [phone] Osmany Chavez MD Unavailable [phone] Amauri Amezquita MD Unavailable [phone] Osmany Chavez MD Unavailable [phone] Dipesh Florez MD Primary Care Provider [phone] Encounter Details Date Type Department Care Team (Late st Contact Info) Description 10/23/2008 Clinic Report (Vest Presser) [address] [phone] Amauri Amezquita MD [facility] [address] [place] [address] Social History Tobacco Use Types Packs/Day Years Used Date Smoking Tobacco: Never Assessed Sex and Gender Information Value Date Recorded Sex Assigned at Not on file Gender Identity Not on file Sexual Orientation Not on file documented as of this encounter Progress Notes * Amauri Amezquita MD - 08/24/2012 10:18 AM CST CC/HPI: She next presented with headache. It is located diffusely. The symptom is described as acute. The symptom is sudden in onset. The symptom started 1 days ago. The complaint is incapacitating. Current Medication: Sulindac 200 mg Tab, 1 Tablet(s), PO, BID, 30 days, 5 refills, for a total of 60, start on September 14, 2008, end on March 07, 2009 and discontinued because: Refilled. ROS: Constitutional: The patient denied recent illness. Gastrointestinal: The patient denied vomiting. Neurologic: The patient denied dizziness. Vital Signs: data collected on 10/23/2008 12:57:30 PM by Diana Doherty weight is 232 pounds 4.00 ounces clothed sitting heart rate is 60 bpm radial regular blood pressure at Left Arm while Sitting is 110/80 mmHg PE: Constitutional: GENERAL APPEARANCE: Overall: well nourished, well developed and in no acute distress. Dx: (346.00) - C - Migraine, classic, not intractable Rx: Atenolol 25 mg Tab, 1 Tablet(s), PO, daily, 30 days, 5 refills, for a total of 30. Plan: A return visit is indicated in 2 months. Patient Instructions: None ENGINEER documented in this encounter Plan of Treatment Not on file documented as of this encounter Visit Diagnoses Not on filedocumented in this encounter Care Teams Geological Engineer Relationship Specialty Start Date End Date Amauri Amezquita MD [address] [place] [address] PCP - General Family Practice 06/13/12 08/04/20 Osmany Chavez MD [place] [facility] [address] [place] [address] PCP - Assigned PCP 05/26/18 12/03/18 Dipesh Florez MD [address] [place] [address] PCP - General 08/05/20 Osmany Chavez MD [facility] [address] [place] [address] Assigned PCP 05/26/18 06/07/19 Amauri Amezquita MD [address] [place] [address] Assigned PCP 06/08/19 11/29/19 Osmany Chavez MD [facility] [address] [address] Assigned PCP 11/30/19 06/11/21 documented as of this encounter
--- OUTSIDE RECORDS SUMMARY | 2024-03-12 16:12 | XMS_ITS | Encounter Summary ---
Author Organization [facility] Address [address] [place] [address] Care Team Providers Care Rn Orthopaedic Name Role Phone Amauri Amezquita MD Primary Care Provider Osmany Chavez MD Unavailable [phone] Osmany Chavez MD Unavailable [phone] Amauri Amezquita MD Unavailable [phone] Osmany Chavez MD Unavailable [phone] Dipesh Florez MD Primary Care Provider [phone] Encounter Details Date Type Department Care Team (Late st Contact Info) Description 12/14/2009 Clinic Report (Training Designer) [address] [address] Amauri Amezquita MD [facility] [address] [address] [place] [address] Social History Tobacco Use Types Packs/Day Years Used Date Smoking Tobacco: Never Assessed Sex and Gender Information Value Date Recorded Sex Assigned at Not on file Gender Identity Not on file Sexual Orientation Not on file documented as of this encounter Progress Notes * Amauri Amezquita MD - 08/24/2012 4:54 AM CST CC/HPI: She presented with headache. It is located diffusely. The symptom is described as acute. The symptom is sudden in onset. The symptom started 2 days ago. The complaint moderately limits activities. Current Medication: Atenolol 50 mg Tab, 1 Tablet(s), PO, daily, 30 days, 5 refills, for a total of 30, start on August 20, 2009, end on February 21, 2010, making melinda and discontinued because: Refilled. Tylenol-Codeine #3 300 mg-30 mg Tab, 1-2 Tablet(s), PO, QID PRN, end on March 28, 2010 and discontinued because: Refilled. Lorazepam 0.5 mg Tab, 1 Tablet(s), PO, BID PRN, for a total of 10, end on March 31, 2010, panic attack and discontinued because: Refilled. Nasonex 50 mcg/Actuation [place], 1 , NASAL, daily, 30 days, 2 refills, for a total of 1, start on October 15, 2009, end on January 12, 2010 and generic. ROS: Constitutional: The patient denied recent illness. Gastrointestinal: The patient complained of nausea but denied vomiting. Vital Signs: data collected on 12/14/2009 02:04:37 PM by Diana Doherty weight is 211 pounds clothed sitting heart rate is 60 bpm radial regular blood pressure at Left Arm while Sitting is 124/82 mmHg PE: Constitutional: GENERAL APPEARANCE: Overall: well nourished, well developed and in no acute distress. Ears/Nose/Throat: OTOSCOPIC EXAM: Overall: external auditory canals clear and tympanic membranes clear; LIPS/TEETH/GINGIVA: Overall: benign lips, normal dentition, benign gingiva and no masses; ORAL CAVITY/PHARYNX/LARYNX: Overall: tonsils benign, oropharyngeal mucosa clear and no masses. Neurologic: DEEP TENDON REFLEXES: Overall: deep tendon reflexes intact; SENSATION: Overall: intact to touch; MENTAL STATUS: Overall: alert and oriented; GAIT: Overall: no ataxia, no unsteadiness; COORDINATION: Overall: no tremors; CRANIAL NERVES: Overall: cranial nerves 2-12 intact; MOTOR: Overall: normal bulk, tone. Dx: (346.00) - C - Migraine, classic, not intractable (787.02) - C - Nausea, alone Rx: Demerol 100 mg/mL Injection, 1 Milliliter(s), Inj, for a total of 1 ml. Ondansetron HCl 4 mg Tab, 1 Tablet(s), PO, Q6-8H&PRN, 5 refills, for a total of 4, start on December 14, 2009, end on December 13, 2009, For migraine induced nausea. Vistaril 50 mg Injectable, 1 Milliliter(s), IM, for a total of 1 ml. 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: None documented in this encounter Plan of Treatment Not on file documented as of this encounter Visit Diagnoses Not on filedocumented in this encounter Care Teams Rn Orthopaedic Relationship Specialty Start Date End Date Amauri Amezquita MD [address] [place] [address] PCP - General Family Practice 06/13/12 08/04/20 Osmany Chavez MD [address] [address] PCP - Assigned PCP 05/26/18 12/03/18 Dipesh Florez MD [facility] [address] [place] [address] PCP - General 08/05/20 Osmany Chavez MD [facility] [address] [address] Assigned PCP 05/26/18 06/07/19 Amauri Amezquita MD [address] [place] [address] Assigned PCP 06/08/19 11/29/19 Osmany Chavez MD [address] [address] Assigned PCP 11/30/19 06/11/21 documented as of this encounter
--- OUTSIDE RECORDS SUMMARY | 2024-03-12 16:12 | XMS_ITS | Encounter Summary ---
Author Organization [facility] Address [address] [place] [address] Care Team Providers Care Paper Steamer Name Role Phone Amauri Amezquita MD Primary Care Provider Osmany Chavez MD Unavailable [phone] Osmany Chavez MD Unavailable [phone] Amauri Amezquita MD Unavailable [phone] Osmany Chavez MD Unavailable [phone] Dipesh Florez MD Primary Care Provider [phone] Encounter Details Date Type Department Care Team (Late st Contact Info) Description 05/06/2010 Clinic Report (Medical Billing Coordinator) [address] [address] Amauri Amezquita MD XXX RETIRED JUL [address] [place] [address] Social History Tobacco Use Types Packs/Day Years Used Date Smoking Tobacco: Never Assessed Sex and Gender Information Value Date Recorded Sex Assigned at Not on file Gender Identity Not on file Sexual Orientation Not on file documented as of this encounter Progress Notes * Amauri Amezquita MD - 08/24/2012 2:59 AM CST CC/HPI: She presented with headache. It is located diffusely. The symptom is described as acute. The symptom is sudden in onset. The symptom started 1 weeks ago. The complaint is incapacitating. The frequency of episodes is hourly and increasing. Current Medication: Tylenol-Codeine #3 300 mg-30 mg Tab, 1-2 Tablet(s), PO, QID PRN, 5 refills, for a total of 30, start on March 29, 2010, end on January 17, 2011 and discontinued because: Refilled. Atenolol 50 mg Tab, 1 Tablet(s), PO, daily, 30 days, 5 refills, for a total of 30, start on May 06, 2010, end on June 07, 2010 and discontinued because: Discontinued. Loestrin 1/20 (21) 1 mg-20 mcg Tab, 1 Tablet(s), PO, daily, 28 days, 5 refills, for a total of 28, start on February 21, 2010, end on May 19, 2010 and discontinued because: Refilled. ROS: Constitutional: The patient denied chills, fever and night sweats. Eyes: The patient denied eye discharge. Ears/Nose/Throat/Neck: The patient denied otalgia and sinus congestion. Cardiovascular: The patient denied chest pain/pressure. Respiratory: The patient denied cough. Hematologic/Lymphatic: The patient denied lymph node enlargement/mass. Vital Signs: data collected on 05/06/2010 04:22:53 PM by Diana Doherty weight is 192 pounds 4.00 ounces clothed sitting heart rate is 676 bpm radial regular blood pressure at Left [...] tympanic membranes clear; INTERNAL NOSE: Sinus tenderness: right maxillary; LIPS/TEETH/GINGIVA: Overall: benign lips, normal dentition, benign gingiva and no masses; ORAL CAVITY/PHARYNX/LARYNX: Overall: tonsils benign, oropharyngeal mucosa clear and no masses. Neck: INSPECTION OF NECK: Overall: normal appearance and no carotid bruits. Lymphatic: NECK NODES: Overall: anterior cervical chain benign and posterior cervical chain benign. Dx: (461.0) - C - Sinusitis, acute, maxillary (724.4) - C - Back pain w/radiation, unspec. Rx: Azithromycin 500 mg Tab, 1 Tablet(s), PO, daily, 5 days, for a total of 5, start on May 06, 2010, end on May 10, 2010. Demerol 100 mg/mL Injection, 0.5 Milliliter(s), Inj, 1 days, for a total of 0.5 cc, start on May 06, 2010, end on May 06, 2010. Fluticasone 50 mcg/Actuation Nasal [place], Susp, 2 [place], NASAL, daily, 10 days, for a total of 1 bottle, start on May 06, 2010, end on May 15, 2010. Ondansetron HCl 4 mg Tab, 1 Tablet(s), PO, Q6-8H&PRN, 5 refills, for a total of 4, start on May 06, 2010, end on May 05, 2010, For migraine induced nausea. Vistaril 50 mg Injectable, 1 Milliliter(s), IM, 1 days, for a total of 1 ml, start on May 06, 2010, end on May 06, 2010. Plan: Will treat symptomatically and see back prn no improvement. Patient Instructions: None documented in this encounter Plan of Treatment Not on file documented as of this encounter Visit Diagnoses Not on filedocumented in this encounter Care Teams Paper Steamer Relationship Specialty Start Date End Date Amauri Amezquita MD [address] [place] [address] PCP - General Family Practice 06/13/12 08/04/20 Osmany Chavez MD [facility] [address] [place] [address] PCP - Assigned PCP 05/26/18 12/03/18 Dipesh Florez MD [facility] [address] [place] [place] [address] PCP - General 08/05/20 Osmany Chavez MD [facility] [address] [address] Assigned PCP 05/26/18 06/07/19 Amauri Amezquita MD XXX RETIRED JUL [address] [place] [address] Assigned PCP 06/08/19 11/29/19 Osmany Chavez MD [facility] [address] [place] [address] Assigned PCP 11/30/19 06/11/21 documented as of this encounter
--- OUTSIDE RECORDS SUMMARY | 2024-03-12 16:12 | XMS_ITS | Encounter Summary ---
Author Organization [facility] Address [address] [place] [address] Care Team Providers Care Poker In Name Role Phone Amauri Amezquita MD Primary Care Provider Osmany Chavez MD Unavailable [phone] Osmany Chavez MD Unavailable [phone] Amauri Amezquita MD Unavailable [phone] Osmany Chavez MD Unavailable [phone] Dipesh Florez MD Primary Care Provider [phone] Encounter Details Date Type Department Care Team (Late st Contact Info) Description 04/09/2010 Clinic Report (Building Trades Teacher) [address] [address] [place] [address] [facility] [place] [address] Social History Tobacco Use Types Packs/Day Years Used Date Smoking Tobacco: Never Assessed Sex and Gender Information Value Date Recorded Sex Assigned at Not on file Gender Identity Not on file Sexual Orientation Not on file documented as of this encounter Progress Notes * Pat Montano DO - 08/24/2012 3:22 AM CST CC/HPI: Was given lidoderm patches by SHAN. She presented with back pain. It is located thoracic spine. The symptom is described as acute 1.5 weeks now. The symptom is sudden in onset. 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 Current Medication: Tylenol-Codeine #3 300 mg-30 mg Tab, 1-2 Tablet(s), PO, QID PRN, 5 refills, for a total of 30, start on March 29, 2010, end on January 17, 2011 and discontinued because: Refilled. Fluticasone 50 mcg/Actuation Nasal [place], Susp, 2 [place], NASAL, daily, 10 days, 12 refills, for a total of 1 bottle, start on February 21, 2010, end on May 05, 2010 and discontinued because: Discontinued. Loestrin 1/20 (21) 1 mg-20 mcg Tab, 1 Tablet(s), PO, daily, 28 days, 5 refills, for a total of 28, start on February 21, 2010, end on May 19, 2010 and discontinued because: Refilled. ROS: per patient, dr reyes ct abd/pelvis and xrays and everything ok per pt Constitutional: The patient denied fever. Genitourinary/Nephrology: The patient denied and urinary incontinence. Musculoskeletal: The patient complained of myalgias. Dermatologic: The patient denied rash. Neurologic: The patient denied paresthesia and weakness. Hematologic/Lymphatic: The patient denied abnormal bleeding and bruising (no specific injury). Allergy/Immunology: The patient denied food allergy. Vital Signs: data collected on 04/09/2010 10:20:57 AM by Ambreen Wallace weight is 194 pounds clothed sitting heart rate is 60 bpm regular blood pressure at Right Arm while Sitting is 122/80 mmHg PE: With palpation of the C-T-L-S spine in the midline and paraspinal muscle regions, there is no pain except for minimal muscle spasm tenderness in the lower thoracic/upper lumbar paraspinal muscle regions. Constitutional: GENERAL APPEARANCE: Overall: well nourished, well developed and in no acute distress. Eyes: CONJUNCTIVA/EYELIDS: Overall: conjunctiva clear. Respiratory: AUSCULTATION: Overall: breath sounds clear bilaterally. Cardiovascular: AUSCULTATION OF HEART: Overall: regular rate, regular rhythm, normal heart sounds and no murmurs; EXTREMITIES: Overall: no edema. Abdomen: ABDOMINAL EXAM: Overall: no tenderness and normal bowel sounds. Musculoskeletal: SPINE, RIBS AND PELVIS: Overall: good posture; GAIT AND STATION: Overall: normal gait and normal station. Integument: INSPECTION OF SKIN: Overall: no rashes. Neurologic: DEEP TENDON REFLEXES: Overall: deep tendon reflexes intact; GAIT: Overall: no ataxia, no unsteadiness Conventional walking: a normal exam Heel walking: a normal exam; Toe walking: a normal exam. Psychiatric: MOOD AND AFFECT: Overall: normal mood and affect. Dx: (715.92) - C - Muscle spasm Rx: Flexeril 10 mg Tab, 1/2 to 1 Tablet(s), PO, QHS PRN, 30 days, for a total of 30, start on April 09, 2010, end on May 08, 2010, No alcohol, driving, or operating heavy machinery while on this medication.. Vicodin 5 mg-500 mg Tab, 1 Tablet(s), PO, BID PRN, 7 days, for a total of 14, start on April 09, 2010, end on April 15, 2010, fourteen tablets. no etoh, driving, or operating machinery while on this med.. Plan: pt mention towards end of encounter that her friends offered her some pain pills but she declined them and states 'i would never do that'. pt mentions upon leaving that she has a minimal amount of blood with hard bm recently as been slightly constipated and has 'internal hemorrhoid on colonoscopy in past'. she is ok now and not concerned about it. she declines any workup for this blood loss and accepts risks of cancer/ if goes unevaluated and untreated but she accepts these risks and agrees to followup with her primary dr later this week instead to work this up further. she will increase water intake and try titrate down on her pain medications to see if this helps with her constipation also but states still having daily bm's and will keep a close eye on it. joey had mentioned to me special education supervisor that he is concerned about this pt and her frequent pain meds and pt aware and agreeable to titrating down also. will stop the lidoderm patch as out of them now and titrate down to vicodin, one tab bid prn. and stop carisoprodol she has at home and use Flexeril ? to 1 tab by mouth qhs as needed. No alcohol, driving, or operating heavy machinery while on these medications. also, cautious use of ibu 200 to 800 mg po tid with food as long as bp and stomach tolerate it as long as no more bleeding. I advised patient to see a doctor right away with any acute changes. recheck dr mireles with joey within a week to followup on all of these concerns for patient and she understands importance of doing so. I reviewed the risks, benefits, and alternatives of plan, and the patient understands, agrees, and wishes to proceed. She was given this form: 'Patient Medication Summary'. Patient Instructions: None documented in this encounter Plan of Treatment Not on file documented as of this encounter Visit Diagnoses Not on filedocumented in this encounter Care Teams Poker In Relationship Specialty Start Date End Date Amauri Amezquita MD [address] [place] [address] PCP - General Family Practice 06/13/12 08/04/20 Osmany Chavez MD [address] [address] PCP - Assigned PCP 05/26/18 12/03/18 Dipesh Florez MD [facility] [address] [place] [address] PCP - General 08/05/20 Osmany Chavez MD [address] [address] Assigned PCP 05/26/18 06/07/19 Amauri Amezquita MD XXX RETIRED JUL [address] [place] [address] Assigned PCP 06/08/19 11/29/19 Osmany Chavez MD [address] [place] [address] Assigned PCP 11/30/19 06/11/21 documented as of this encounter
--- OUTSIDE RECORDS SUMMARY | 2024-03-12 16:12 | XMS_ITS | Encounter Summary ---
Author Organization [facility] Address [address] [place] [address] Care Team Providers Care Weight Calculator Name Role Phone Amauri Amezquita MD Primary Care Provider Osmany Chavez MD Unavailable [phone] Osmany Chavez MD Unavailable [phone] Amauri Amezquita MD Unavailable [phone] Osmany Chavez MD Unavailable [phone] Dipesh Florez MD Primary Care Provider [phone] Encounter Details Date Type Department Care Team (Late st Contact Info) Description 03/01/2009 Clinic Report (Body Builder) [address] [address] Amauri Amezquita MD XXX RETIRED JUL [address] [place] [address] Social History Tobacco Use Types Packs/Day Years Used Date Smoking Tobacco: Never Assessed Sex and Gender Information Value Date Recorded Sex Assigned at Not on file Gender Identity Not on file Sexual Orientation Not on file documented as of this encounter Progress Notes * Amauri Amezquita MD - 08/24/2012 8:33 AM CST CC/HPI: She next presented with headache. It is located diffusely. The symptom is described as acute. The symptom is sudden in onset. The symptom started 3 days ago. The complaint moderately limits activities. Current Medication: Atenolol 50 mg Tab, 1 Tablet(s), PO, daily, 30 days, 5 refills, for a total of 30, start on December 21, 2008, end on June 13, 2009 and discontinued because: Refilled. Tylenol-Codeine #3 300 mg-30 mg Tab, 1-2 Tablet(s), PO, QID PRN, 1 refills, for a total of 40, end on April 23, 2009 and discontinued because: Refilled. Sulindac 200 mg Tab, 1 Tablet(s), PO, BID, 30 days, 5 refills, for a total of 60, start on September 14, 2008, end on March 07, 2009 and discontinued because: Refilled. Lorazepam 0.5 mg Tab, 1 Tablet(s), PO, BID PRN, for a total of 10, end on March 31, 2010, panic attack and discontinued because: Refilled. ROS: Constitutional: The patient denied fever. Eyes: The patient denied eye discharge and vision change. Ears/Nose/Throat/Neck: The patient complained of facial pain and postnasal drip but denied nasal discharge and otalgia. Cardiovascular: The patient denied chest pain/pressure. Respiratory: The patient denied cigarette smoking, cough and wheezing. Vital Signs: data collected on 03/01/2009 01:09:08 PM by Diana Doherty weight is 221 pounds 4.00 ounces clothed sitting heart rate is 56 bpm radial regular blood pressure at Right Arm while Sitting is 100/80 mmHg PE: Constitutional: GENERAL APPEARANCE: Overall: well developed and in no acute distress; Nourishment: obese. Eyes: CONJUNCTIVA/EYELIDS: Overall: conjunctiva clear, cornea clear and eyelids normal; PUPILS AND IRISES: Overall: pupils equal, round, reactive to light and accomodation. Ears/Nose/Throat: OTOSCOPIC EXAM: Overall: external auditory canals clear and tympanic membranes clear; INTERNAL NOSE: Sinus tenderness: left frontal and right frontal; LIPS/TEETH/GINGIVA: Overall: benign lips, normal dentition, benign gingiva and no masses; ORAL CAVITY/PHARYNX/LARYNX: Overall: tonsils benign, oropharyngeal mucosa clear and no masses. Neck: INSPECTION OF NECK: Overall: normal appearance and no carotid bruits. Respiratory: AUSCULTATION: Overall: breath sounds clear bilaterally; RESPIRATORY EFFORT/RHYTHM: Overall: no retractions and normal rate. Cardiovascular: AUSCULTATION OF HEART: Overall: regular rate, regular rhythm, normal heart sounds and no murmurs. Lymphatic: NECK NODES: Overall: anterior cervical chain benign and posterior cervical chain benign. Dx: 461.1 Sinusitis, acute, frontal Rx: Amoxicillin 500 mg Tab, 3 Tablet(s), PO, BID, 10 days, for a total of 60. 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: None documented in this encounter Plan of Treatment Not on file documented as of this encounter Visit Diagnoses Not on filedocumented in this encounter Care Teams Weight Calculator Relationship Specialty Start Date End Date Amauri Amezquita MD [address] [facility] [place] [address] PCP - General Family Practice 06/13/12 08/04/20 Osmany Chavez MD [address] [address] PCP - Assigned PCP 05/26/18 12/03/18 Dipesh Florez MD [facility] [address] [place] [address] PCP - General 08/05/20 Osmany Chavez MD [address] [address] Assigned PCP 05/26/18 06/07/19 Amauri Amezquita MD [address] RETIRED [address]UL [address] [place] [address] Assigned PCP 06/08/19 11/29/19 Osmany Chavez MD [address] [place] [address] Assigned PCP 11/30/19 06/11/21 documented as of this encounter
--- OUTSIDE RECORDS SUMMARY | 2024-03-12 16:12 | XMS_ITS | Encounter Summary ---
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 The symptom is described as fullness, green, pain and pressure. The symptom is gradual in resolution and ongoing. The symptom started 4 months ago For the last 4 months with some relief after course of antibiotics. The frequency of episodes is unchanged. The symptom is alleviated by medication. In addition, she presented with neck pain. chronic-ongoing, no injury. It is located on the left. The symptom is described as acute, intermittent Increased with ROM and discomfort. The symptom is sudden in onset and ongoing. The symptom started 7 weeks ago. The complaint moderately limits activities. Important triggers include position change. The symptom is alleviated by medication Ibuprofen with minimal relief of SXS and ice no injury.. Current Medication: Tylenol-Codeine #3 300 mg-30 mg [...] 2010, making melinda and discontinued because: Refilled. Nasonex 50 mcg/Actuation [place], 1 , NASAL, daily, 30 days, 2 refills, for a total of 1, start on October 15, 2009, end on January 12, 2010 and generic. ROS: pt declines xrays, no injury. Patient denies the possibility of . Constitutional: The patient denied fever. Eyes: The patient denied eye discharge. Ears/Nose/Throat/Neck: The patient complained of nasal discharge, postnasal drip and sinus congestion but denied nosebleed and sore throat. Respiratory: The patient complained of cough but denied dyspnea/shortness of breath. Gastrointestinal: The patient denied diarrhea and vomiting. Musculoskeletal: The patient complained of myalgias (neck muscles). Dermatologic: The patient denied rash. Neurologic: The patient denied paresthesia and weakness. Vital Signs: data collected on 10/28/2009 01:22:55 PM by Marnie Meade weight is 226 pounds clothed height is 6 feet body mass index is 33.31 Kg/m2 sitting heart rate is 64 bpm radial regular blood pressure at Left Arm while Sitting is 128/74 mmHg PE: Constitutional: GENERAL APPEARANCE: Overall: well nourished, well developed and in no acute distress. Eyes: CONJUNCTIVA/EYELIDS: Overall: conjunctiva clear. Ears/Nose/Throat: OTOSCOPIC EXAM: Overall: external auditory canals clear and tympanic membranes clear; INTERNAL NOSE: Overall: no sinus tenderness; Drainage: clear and thin; ORAL CAVITY/PHARYNX/LARYNX: Overall: oropharyngeal mucosa clear. Neck: INSPECTION OF NECK: Overall: normal size, normal appearance, no masses and absence of swelling. Respiratory: AUSCULTATION: Overall: breath sounds clear bilaterally. Cardiovascular: AUSCULTATION OF HEART: Overall: regular rate, regular rhythm, normal heart sounds and no murmurs. Abdomen: ABDOMINAL EXAM: Overall: no tenderness and normal bowel sounds. Lymphatic: NECK NODES: Overall: anterior cervical chain benign and posterior cervical chain benign. Musculoskeletal: SPINE, RIBS AND PELVIS: Overall: good posture. Integument: INSPECTION OF SKIN: Overall: no rashes. Dx: 465.9 Upper respiratory infection, acute, NOS 728.85 Muscle spasm Rx: Barbie-D 12 Hour 60 mg-120 mg Tab, 1 Tablet(s), PO, BID, 14 days, for a total of 28, start on October 28, 2009, end on November 10, 2009. Flexeril 10 mg Tab, 1/2 to 1 Tablet(s), PO, TID PRN, 10 days, for a total of 30, start on October 28, 2009, end on November 06, 2009, No alcohol, driving, or operating heavy machinery while on this medication.. Plan: cbc-with wbc 5.2, no more antibiotics. just finished bactrim course per DNR. continue nasonex prn. start 2 week course barbie d 12 hour or otc zyrtec d or claritin d instead. increase hydration. Flexeril ? to 1 tab by mouth three times a day as needed. No alcohol, driving, or operating heavy machinery while on this medication. Ibuprofen, 200 to 400 mg po tid for 3 weeks with food as long as the pt's bp and stomach can tolerate it. Ice and/or heat per preference. pt asks about chiro coverage as she has friend who is chiro-upon consulting with colleagues, no known [facility]pa referral for chiro available and her friend is not listed in the fpa network. i advised pt to make a consult with dr mcgee if she would like consideration of manipulation treatment and she has schedule appt for early nov with dr hernandez, followup earlier prn. I reviewed the risks, benefits, and alternatives of plan, and the patient understands, agrees, and wishes to proceed. 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 Plan of Treatment Not on file documented as of this encounter Visit Diagnoses Not on filedocumented in this encounter Care Teams Supervisor Fryer Farm Relationship Specialty Start Date End Date Amauri Amezquita MD [address] [address] PCP - General Family Practice 06/13/12 08/04/20 [facility] MD [facility] [address] [address] PCP - Assigned PCP 05/26/18 12/03/18 Dipesh Florez MD [facility] [address] [place] [address] PCP - General 08/05/20 Osmany Chavez MD [facility] [address] [address] Assigned PCP 05/26/18 06/07/19 Amauri Amezquita MD XXX RETIRED JUL [address] [place] [address] Assigned PCP 06/08/19 11/29/19 Osmany Chavez MD [address] [address] Assigned PCP 11/30/19 06/11/21 documented as of this encounter
--- OUTSIDE RECORDS SUMMARY | 2024-03-12 16:12 | XMS_ITS | Encounter Summary ---
Author Organization [facility] Address [address] [place] [address] Care Team Providers Care Long Wall Mining Machine Helper Name Role Phone Amauri Amezquita MD Primary Care Provider Osmany Chavez MD Unavailable [phone] Osmany Chavez MD Unavailable [phone] Amauri Amezquita MD Unavailable [phone] Osmany Chavez MD Unavailable [phone] Dipesh Florez MD Primary Care Provider [phone] Encounter Details Date Type Department Care Team (Late st Contact Info) Description 10/15/2009 Clinic Report (Cras) [address] [id number] Femi Glover MD NO INFO AVAILABLE 08/04/2022 Social History Tobacco Use Types Packs/Day Years Used Date Smoking Tobacco: Never Assessed Sex and Gender Information Value Date Recorded Sex Assigned at Not on file Gender Identity Not on file Sexual Orientation Not on file documented as of this encounter Progress Notes * Femi Glover N - 08/24/2012 5:39 AM CST CC/HPI: She presented with sinus congestion. It is located on the left. The symptom is described as acute. The symptom is sudden in onset. The symptom started 1 weeks ago. The frequency of episodes is daily. Patient denies adenopathy, cough and decreased energy level. Current Medication: Tylenol-Codeine #3 300 mg-30 mg [...] 2010, making melinda and discontinued because: Refilled. ROS: Constitutional: The patient denied chills, diaphoresis and fatigue. Ears/Nose/Throat/Neck: The patient complained of postnasal drip and sinus congestion but denied cerumen, nosebleed, cosmetic deformity and otalgia. Cardiovascular: The patient denied arrhythmia, chest pain/pressure and claudication. Respiratory: The patient denied asthma, chest congestion and chest tightness. Gastrointestinal: The patient denied abdominal pain, anorexia and constipation. Vital Signs: data collected on 10/15/2009 11:13:38 AM by Diana Doherty weight is 228 pounds 4.00 ounces clothed sitting heart rate is 84 bpm radial regular blood pressure at Right Arm while Sitting is 110/72 mmHg PE: Constitutional: GENERAL APPEARANCE: Overall: well nourished, well developed and in no acute distress. Ears/Nose/Throat: EXTERNAL EAR: Overall: normal appearance; EXTERNAL NOSE: Overall: benign appearance, no masses and non-tender; OTOSCOPIC EXAM: Overall: external auditory canals clear and tympanic membranes clear; ORAL CAVITY/PHARYNX/LARYNX: Overall: tonsils benign, oropharyngeal mucosa clear and no masses. Respiratory: AUSCULTATION: Overall: breath sounds clear bilaterally; RESPIRATORY EFFORT/RHYTHM: Overall: no retractions and normal rate. Cardiovascular: AUSCULTATION OF HEART: Overall: regular rate, regular rhythm, normal heart sounds and no murmurs. Dx: 461.9 Sinusitis, acute, NOS Rx: Bactrim DS 160 mg-800 mg Tab, 1 Tablet(s), PO, BID, 10 days, for a total of 20, start on October 15, 2009, end on October 24, 2009. Nasonex 50 mcg/Actuation [place], 1 , NASAL, daily, 30 days, 2 refills, for a total of 1, start on October 15, 2009, end on January 12, 2010, generic. Plan: DISUCSSED POSSIBLE ALLERGY COMPONENT WILL TREAT WITH THE NASAL STEROID. 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 documented in this encounter Plan of Treatment Not on file documented as of this encounter Visit Diagnoses Not on filedocumented in this encounter Care Teams Long Wall Mining Machine Helper Relationship Specialty Start Date End Date Amauri Amezquita MD [address] [place] [address] PCP - General Family Practice 06/13/12 08/04/20 Osmany Chavez MD [address] [address] PCP - Assigned PCP 05/26/18 12/03/18 Dipesh Florez MD [facility] [address] [place] [address] PCP - General 08/05/20 Osmany Chavez MD [facility] [address] [address] Assigned PCP 05/26/18 06/07/19 Amauri Amezquita MD [address] [place] [address] Assigned PCP 06/08/19 11/29/19 Osmany Chavez MD [address] [address] Assigned PCP 11/30/19 06/11/21 documented as of this encounter
--- OUTSIDE RECORDS SUMMARY | 2024-03-12 16:12 | XMS_ITS | Encounter Summary ---
Author Organization [facility] Address [address] [place] [address] Care Team Providers Care Nailhead Puncher Name Role Phone Amauri Amezquita MD Primary Care Provider Osmany Chavez MD Unavailable [phone] Osmany Chavez MD Unavailable [phone] Amauri Amezquita MD Unavailable [phone] Osmany Chavez MD Unavailable [phone] Dipesh Florez MD Primary Care Provider [phone] Encounter Details Date Type Department Care Team (Late st Contact Info) Description 08/20/2009 Clinic Report (Microsoft Dynamics Manager Architect) [address] [address] Amauri Amezquita MD [address] [place] [address] Social History Tobacco Use Types Packs/Day Years Used Date Smoking Tobacco: Never Assessed Sex and Gender Information Value Date Recorded Sex Assigned at Not on file Gender Identity Not on file Sexual Orientation Not on file documented as of this encounter Progress Notes * Amauri Amezquita MD - 08/24/2012 6:19 AM CST CC/HPI: She presented with sinus congestion. It is located on both sides. The symptom is described as acute. The symptom is sudden in onset. The symptom started 2 days ago. The complaint is moderate. The frequency of episodes is increasing. Current Medication: Ondansetron HCl 4 mg Tab, 1 Tablet(s), PO, Q6-8H&PRN, for a total of 4, start on July 22, 2009, end on October 14, 2009, For migraine induced nausea and discontinued because: Refilled. Sulindac 200 mg Tab, 1 Tablet(s), PO, BID, 30 days, 5 refills, for a total of 60, start on April 24, 2009, end on October 14, 2009 and discontinued because: Discontinued. Lorazepam 0.5 mg Tab, 1 Tablet(s), PO, BID PRN, for a total of 10, end on March 31, 2010, panic attack and discontinued because: Refilled. Lidocaine 5 % Ointment, 1 Application, TOP, QID PRN, 30 days, 3 refills, for a total of 2 TUBES, start on April 24, 2009, end on August 21, 2009 and discontinued because: Refilled. ROS: Constitutional: The patient complained of chills but denied diaphoresis and fever. Eyes: The patient denied eye discharge. Ears/Nose/Throat/Neck: The patient complained of otalgia (left.) and postnasal drip. Cardiovascular: The patient denied chest pain/pressure, edema, exercise intolerance and palpitations. Respiratory: The patient complained of chest tightness and cough but denied cigarette smoking. Gastrointestinal: The patient denied dyspepsia and gastroesophageal reflux. Hematologic/Lymphatic: The patient denied lymph node enlargement/mass. Vital Signs: data collected on 08/20/2009 01:47:43 PM by Natalia Lozano weight is 228 pounds clothed temperature is 98.7 F sitting heart rate is 64 bpm regular PE: Constitutional: GENERAL APPEARANCE: Overall: well developed and in no acute distress; Nourishment: obese. Eyes: CONJUNCTIVA/EYELIDS: Overall: conjunctiva clear, cornea clear and eyelids normal; PUPILS AND IRISES: Overall: pupils equal, round, reactive to light and accomodation. Ears/Nose/Throat: OTOSCOPIC EXAM: Overall: external auditory canals clear and tympanic membranes clear; INTERNAL NOSE: Sinus tenderness: left frontal, right frontal, left maxillary and right maxillary; LIPS/TEETH/GINGIVA: Overall: benign lips, normal dentition, benign gingiva and no masses; ORAL CAVITY/PHARYNX/LARYNX: Overall: tonsils benign, oropharyngeal mucosa clear and no masses. Neck: INSPECTION OF NECK: Overall: normal appearance. Respiratory: AUSCULTATION: Overall: breath sounds clear bilaterally; RESPIRATORY EFFORT/RHYTHM: Overall: no retractions and normal rate. Cardiovascular: AUSCULTATION OF HEART: Overall: regular rate, regular rhythm, normal heart sounds and no murmurs. Lymphatic: NECK NODES: Overall: anterior cervical chain benign and posterior cervical chain benign. Dx: (461.1) - C - Sinusitis, acute, frontal 461.0 Sinusitis, acute, maxillary (346.00) - C - Migraine, classic, not intractable Rx: Amoxicillin 500 mg Tab, 3 Tablet(s), PO, BID, 10 days, for a total of 60, start on August 20, 2009, end on August 29, 2009. Atenolol 50 mg Tab, 1 Tablet(s), PO, daily, 30 days, 5 refills, for a total of 30, start on August 20, 2009, end on February 15, 2010, making melinda. Tylenol-Codeine #3 300 mg-30 mg Tab, 1-2 Tablet(s), PO, QID PRN, 3 refills, for a total of 40, start on August 20, 2009, end on June 22, 2009. 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 documented in this encounter Plan of Treatment Not on file documented as of this encounter Visit Diagnoses Not on filedocumented in this encounter Care Teams Nailhead Puncher Relationship Specialty Start Date End Date Amauri Amezquita MD [address] [place] [address] PCP - General Family Practice 06/13/12 08/04/20 Osmany Chavez MD [facility] [address] [address] PCP - Assigned PCP 05/26/18 12/03/18 Dipesh Florez MD [facility] [address] [place] [address] PCP - General 08/05/20 Osmany Chavez MD [facility] [address] [address] Assigned PCP 05/26/18 06/07/19 Amauri Amezquita MD [address] [place] [address] Assigned PCP 06/08/19 11/29/19 Osmany Chavez MD [facility] [address] [place] [address] Assigned PCP 11/30/19 06/11/21 documented as of this encounter
--- OUTSIDE RECORDS SUMMARY | 2024-03-12 16:12 | XMS_ITS | Encounter Summary ---
Author Organization [facility] Address [address] [place] [address]. [place] [address] Care Team Providers Care Hot Wire Glass Tube Cutter Name Role Phone Amauri Amezquita MD Primary Care Provider Osmany Chavez MD Unavailable [phone] Osmany Chavez MD Unavailable [phone] Amauri Amezquita MD Unavailable [phone] Osmany Chavez MD Unavailable [phone] Dipesh Florez MD Primary Care Provider [phone] Encounter Details Date Type Department Care Team (Late st Contact Info) Description 04/14/2010 Clinic Report (Erp Engineer) [facility] [address] [place] [id number] Rich David DO XXX [facility] [address] [place], [place] [phone] Social History Tobacco Use Types Packs/Day Years Used Date Smoking Tobacco: Never Assessed Sex and Gender Information Value Date Recorded Sex Assigned at Not on file Gender Identity Not on file Sexual Orientation Not on file documented as of this encounter Progress Notes * Rich David DO - 08/24/2012 3:17 AM CST CC/HPI: Right mid back pain is better. Can lay on her side for 15 min. Definitely improving but slower than she'd like. Taking pain medication once a day.Has developed some sinus congestion and sore throat over the last few days. She presented with back pain. It is located thoracic spine and lumbar-sacral spine. The symptom is described as aching, aching --Improved, constant --Improved, constant --Improved and improving. The symptom is sudden in onset and ongoing. The complaint moderately limits activities --Improved. The frequency of episodes is daily. Important triggers include no known associated factors. The symptom is alleviated by medication. The symptom is exacerbated by walking and position change. Initial therapy includes medication. Mechanism of injury includes unknown. The complaint is severe --Improved. Patient denies bladder incontinence, extremity numbness and extremity weakness. Associated signs and symptoms include limited range of neck motion and myalgias. In addition, she presented with abdominal pain. It is located in the RLQ and in the RUQ. The symptom is described as aching, aching --Improved and constant --Improved and constant --Improved. The symptom is ongoing. Important triggers include activity. The symptom is alleviated by rest. Patient denies anemia, constipation, diarrhea, dysuria, emesis and fever. She next presented with sinus congestion. She next presented with sore throat. It is located on both sides and in the left peritonsillar area. The symptom is described as scratchy. The symptom is ongoing. The symptom is gradual in onset and ongoing. The symptom started 2 months ago. The complaint is mild and moderate. The symptom started 2 days ago. Pertinent other conditions include allergic rhinitis. Important triggers include swallowing. Patient denies cough and fever. Patient denies cough, fever, otalgia and rash. Associated signs and symptoms include sinus pressure. Associated signs and symptoms include abdominal pain and sinusitis. Current Medication: Vicodin 5 mg-500 mg Tab, 1 Tablet(s), PO, BID PRN, 7 days, for a total of 14, start on April 09, 2010, end on April 15, 2010 and fourteen tablets. no etoh, driving, or operating machinery while on this med.. Tylenol-Codeine #3 300 mg-30 mg Tab, 1-2 Tablet(s), PO, QID PRN, 5 refills, for a total of 30, start on March 29, 2010, end on January 17, 2011 and discontinued because: Refilled. Flexeril 10 mg Tab, 1/2 to 1 Tablet(s), PO, QHS PRN, 30 days, for a total of 30, start on April 09, 2010, end on May 05, 2010, No alcohol, driving, or operating heavy machinery while on this medication. and discontinued because: Discontinued. Fluticasone 50 mcg/Actuation Nasal [place], Susp, 2 [place], NASAL, daily, 10 days, 12 refills, for [...] because: Refilled. ROS: Constitutional: The patient denied chills and fever. Eyes: The patient denied visual disturbance. Ears/Nose/Throat/Neck: The patient complained of sinus congestion, sinusitis and sore throat. Cardiovascular: The patient denied chest pain/pressure, edema and palpitations. Respiratory: The patient denied asthma, cough and dyspnea/shortness of breath. Gastrointestinal: The patient complained of abdominal pain (--Improved). Genitourinary/Nephrology: The patient complained of flank pain (--Improved) and menstrual irregularity (prolonged bleeding ). Musculoskeletal: The patient complained of back pain (--Improved). Dermatologic: The patient denied itching and rash. Neurologic: The patient denied dizziness, memory loss, mental status change, neck pain and weakness. Psychiatric: The patient denied anxiety and depression. Endocrine: The patient denied diabetes mellitus type 1, diabetes mellitus type 2, polyuria and thyroid disease. Hematologic/Lymphatic: The patient denied abnormal bleeding and bruising, abnormal ecchymoses and anemia. Vital Signs: data collected on 04/14/2010 01:42:54 PM by Ambreen Wallace weight is 191 pounds clothed height is 6 feet body mass index is 28.20 Kg/m2 sitting heart rate is 72 bpm regular blood pressure at Left Arm while Sitting is 122/84 mmHg PE: There was still tenderness at around the T9, T10, level: Around to the front. Improved from the last visit. Constitutional: GENERAL APPEARANCE: Overall: well nourished and well developed. Eyes: CONJUNCTIVA/EYELIDS: Overall: conjunctiva clear, cornea clear and eyelids normal. Ears/Nose/Throat: OTOSCOPIC EXAM: Overall: external auditory canals clear and tympanic membranes clear; INTERNAL NOSE: Overall: bilateral nasal cavities congested, mild erythema; Sinus tenderness: left maxillary and right maxillary; ORAL CAVITY/PHARYNX/LARYNX: Oral mucosa: leukoplakia. Neck: INSPECTION OF NECK: Overall: normal appearance and no carotid bruits. Respiratory: AUSCULTATION: Overall: breath sounds clear bilaterally; RESPIRATORY EFFORT/RHYTHM: Overall: no retractions and normal rate. Cardiovascular: AUSCULTATION OF HEART: Overall: regular rate, regular rhythm and normal heart sounds; EXTREMITIES: Overall: no edema. Abdomen: ABDOMINAL EXAM: Left upper quadrant: non-tender to palpation Right upper quadrant: tender to palpation and soft; Right lower quadrant: tender to palpation and soft; LIVER AND SPLEEN EXAM: Overall: no hepatosplenomegaly. Genitourinary: BLADDER: Overall: no tenderness. Lymphatic: NECK NODES: Overall: anterior cervical chain benign and posterior cervical chain benign; Left anterior cervical chain: number of palpable nodes: 1, soft and non-tender. Musculoskeletal: SPINE, RIBS AND PELVIS: Ribs: impaired excursion-right; GAIT AND STATION: Overall: normal gait and normal station. Integument: INSPECTION OF SKIN: Overall: no rash, lesions. Neurologic: MENTAL STATUS: Overall: alert and oriented; MOTOR: Overall: normal bulk, tone. Psychiatric: ORIENTATION/CONSCIOUSNESS: Overall: oriented to person, place and time; BEHAVIOR/PSYCHOMOTOR ACTIVITY: Overall: no tics, normal psychomotor activity; COGNITION/MEMORY: Overall: immediate, recent, remote memory intact and normal concentration, intelligence; JUDGMENT/INSIGHT: Overall: judgment and insight intact. Dx: (724.4) - C - Back pain w/radiation, unspec. (789.00) - C - Abdominal pain, unspec. (461.9) - C - Sinusitis, acute, NOS (112.0) - C - Moniliasis, oral (thrush) (789.01) - C - Abdominal pain, RUQ (789.03) - C - Abdominal pain, RLQ Rx: Clotrimazole 10 mg Rebecca, 1 Tablet(s), MM, QID, 10 days, for a total of 40, start on April 14, 2010, end on April 23, 2010. Levaquin 500 mg Tab, 1 Tablet(s), PO, daily, 10 days, for a total of 10, start on April 14, 2010, end on April 23, 2010. Plan: Patient was started on Levaquin and Clotrimazole troches. Follow up if pain not continuing to improve , cleared in 10 -14 days. Patient Instructions: None documented in this encounter Plan of Treatment Not on file documented as of this encounter Visit Diagnoses Not on filedocumented in this encounter Care Teams Hot Wire Glass Tube Cutter Relationship Specialty Start Date End Date Amauri Amezquita MD [address] [place] [address] PCP - General Family Practice 06/13/12 08/04/20 Osmany Chavez MD [address] [address] PCP - Assigned PCP 05/26/18 12/03/18 Dipesh Florez MD [facility] [address] [place] [address] PCP - General 08/05/20 Osmany Chavez MD [address] [address] Assigned PCP 05/26/18 06/07/19 Amauri Amezquita MD [address] [place] [address] Assigned PCP 06/08/19 11/29/19 Osmany Chavez MD [address] [address] Assigned PCP 11/30/19 06/11/21 documented as of this encounter
--- OUTSIDE RECORDS SUMMARY | 2024-03-12 16:12 | XMS_ITS | Encounter Summary ---
Author Organization [facility] Address [address] [place] [address] Care Team Providers Care Military Pilot Name Role Phone Amauri Amezquita MD Primary Care Provider Osmany Chavez MD Unavailable [phone] Osmany Chavez MD Unavailable [phone] Amauri Amezquita MD Unavailable [phone] Osmany Chavez MD Unavailable [phone] Dipesh Florez MD Primary Care Provider [phone] Encounter Details Date Type Department Care Team (Late st Contact Info) Description 02/21/2010 Clinic Report (Service Car Driver) [address] [address] Amauri Amezquita MD [address] [place] [address] Social History Tobacco Use Types Packs/Day Years Used Date Smoking Tobacco: Never Assessed Sex and Gender Information Value Date Recorded Sex Assigned at Not on file Gender Identity Not on file Sexual Orientation Not on file documented as of this encounter Progress Notes * Amauri Amezquita MD - 08/24/2012 3:57 AM CST CC/HPI: She presented with headache. It is located diffusely and acute. The symptom is described as chronic. The symptom is gradual in onset. In addition, she presented with fatigue. It is located diffusely and acute. The symptom is sudden in onset. The symptom started 2 months ago. The complaint moderately limits activities due to falling asleep during the day.. Current Medication: Atenolol 50 mg Tab, 1 [...] Refilled. ROS: Constitutional: The patient denied chills, diaphoresis, fever and recent illness. Eyes: The patient denied eye discharge. Ears/Nose/Throat/Neck: The patient denied otalgia, sinus congestion and sore throat. Cardiovascular: The patient denied chest pain/pressure. Respiratory: The patient denied cough. Dermatologic: The patient complained of sores (with dry skin.). Vital Signs: data collected on 02/21/2010 01:23:36 PM by Sussy Keller weight is 193 pounds clothed sitting heart rate is 76 bpm radial regular blood pressure at Right Arm while Sitting is 118/60 mmHg PE: Constitutional: GENERAL APPEARANCE: Overall: well nourished, well developed and in no acute distress. Eyes: CONJUNCTIVA/EYELIDS: Overall: conjunctiva clear, cornea clear and eyelids normal; PUPILS AND IRISES: Overall: pupils equal, round, reactive to light and accomodation. Ears/Nose/Throat: OTOSCOPIC EXAM: Overall: external auditory canals clear and tympanic membranes clear; INTERNAL NOSE: Sinus tenderness: right frontal and right maxillary; LIPS/TEETH/GINGIVA: Overall: benign lips, [...] rhythm, normal heart sounds and no murmurs. Neurologic: DEEP TENDON REFLEXES: Overall: deep tendon reflexes intact; CRANIAL NERVES: Overall: cranial nerves 2-12 intact; MOTOR: Overall: normal bulk, tone. Dx: (461.0) - C - Sinusitis, acute, maxillary (461.1) - C - Sinusitis, acute, frontal (780.79) - C - Fatigue Rx: Amoxicillin 500 mg Tab, 3 Tablet(s), PO, BID, 10 days, for a total of 60, start on February 21, 2010, end on March 02, 2010. Fluticasone 50 mcg/Actuation Nasal [place], Susp, 2 [place], NASAL, daily, 10 days, 12 refills, for a total of 1 bottle, start on February 21, 2010, end on June 30, 2010. Loestrin 1/20 (21) 1 mg-20 mcg Tab, 1 Tablet(s), PO, daily, 28 days, 5 refills, for a total of 28, start on February 21, 2010, end on August 07, 2010. Plan: A return visit is indicated in 1 month. Patient Instructions: None documented in this encounter Plan of Treatment Not on file documented as of this encounter Visit Diagnoses Not on filedocumented in this encounter Care Teams Military Pilot Relationship Specialty Start Date End Date Amauri Amezquita MD [address] [place] [address] PCP - General Family Practice 06/13/12 08/04/20 Osmany Chavez MD [facility] [address] [place] [address] PCP - Assigned PCP 05/26/18 12/03/18 Dipesh Florez MD [facility] [address] [place] [address] PCP - General 08/05/20 Osmany Chavez MD [address] [address] Assigned PCP 05/26/18 06/07/19 Amauri Amezquita MD [address] [place] [address] Assigned PCP 06/08/19 11/29/19 Osmany Chavez MD [facility] [address] [address] Assigned PCP 11/30/19 06/11/21 documented as of this encounter
--- OUTSIDE RECORDS SUMMARY | 2024-03-12 16:12 | XMS_ITS | Encounter Summary ---
Author Organization [facility] Address [address] [place] [address]. [place] [address] Care Team Providers Care Web Press Roll Tender Name Role Phone Amauri Amezquita MD Primary Care Provider Osmany Chavez MD Unavailable [phone] Osmany Chavez MD Unavailable [phone] Amauri Amezquita MD Unavailable [phone] Osmany Chavez MD Unavailable [phone] Dipesh Florez MD Primary Care Provider [phone] Encounter Details Date Type Department Care Team (Late st Contact Info) Description 09/06/2010 Clinic Report (Director Search Marketing Strategies) [facility] [address] [place] [id number] Rich David DO XXX XXX [address] [place], [place] [address] [phone] Social History Tobacco Use Types Packs/Day Years Used Date Smoking Tobacco: Never Assessed Sex and Gender Information Value Date Recorded Sex Assigned at Not on file Gender Identity Not on file Sexual Orientation Not on file documented as of this encounter Progress Notes * Rich David DO - 08/24/2012 1:20 AM CST CC/HPI: Tylenol # 3 , ibuprofen She presented with headache. It is located diffusely and on the left. The symptom is described as acute, pressure, sharp, squeezing and throbbing. The symptom is sudden in onset. The symptom started 1 days ago. The complaint is incapacitating. Pertinent other conditions include migraines. Important triggers include lack of sleep and stress. Associated signs and symptoms include nausea and sinusitis. Current Medication: Atenolol 50 mg Tab, 1 Tablet(s), PO, daily, 30 days, 5 refills, for a total of 30, start on May 06, 2010, end on November 01, 2010, RF's available, RX sent to pharmacy again and discontinued because: Refilled. Tylenol-Codeine #3 300 mg-30 mg Tab, 1-2 Tablet(s), PO, QID PRN, 5 refills, for a total of 30, start on March 29, 2010, end on January 17, 2011 and discontinued because: Refilled. Fluticasone 50 mcg/Actuation Nasal [place], Susp, 2 [place], NASAL, daily, 10 days, for a total of 1 bottle, start on May 06, 2010, end on March 13, 2011 and discontinued because: Discontinued. Loestrin 1.5/30 (21) 1.5 mg-30 mcg Tab, 1 Tablet(s), PO, daily, 28 days, 5 refills, for a total of 28, start on June 10, 2010, end on November 03, 2010 and discontinued because: Refilled. ROS: Constitutional: The patient complained of recent illness ( sinusitis) but denied chills, fatigue, fever, night sweats and weight loss. Eyes: The patient complained of photophobia but denied eye pain, vision change and visual disturbance. Ears/Nose/Throat/Neck: The patient complained of sinus congestion and sinusitis but denied hearing loss, nasal discharge, postnasal drip and sore throat. Cardiovascular: The patient denied arrhythmia, chest pain/pressure, edema and palpitations. Respiratory: The patient denied asthma, cough, dyspnea/shortness of breath, productive sputum and wheezing. Gastrointestinal: The patient complained of nausea. Genitourinary/Nephrology: The patient denied dysuria, flank pain and urinary incontinence. Musculoskeletal: The patient complained of neck pain. Neurologic: The patient complained of headache. Psychiatric: The patient denied anxiety and depression. Hematologic/Lymphatic: The patient denied abnormal bleeding and bruising, abnormal ecchymoses, anemia and lymph node enlargement/mass. Vital Signs: data collected on 09/06/2010 03:43:02 PM by Ana Napoles weight is refused clothed respiration rate is 16 bpm quiet sitting heart rate is 72 bpm regular blood pressure at Left Arm while Sitting is 120/70 mmHg PE: Constitutional: GENERAL APPEARANCE: Overall: well nourished and well developed Evidence of Distress: in distress secondary to pain; Hygiene/Attention to Grooming: good hygiene and normal grooming. Ears/Nose/Throat: OTOSCOPIC EXAM: Overall: external auditory canals clear and tympanic membranes clear; INTERNAL NOSE: Left nasal cavity: mucosal edema Right nasal cavity: mucosal edema; Sinus tenderness: left maxillary and right maxillary; ORAL CAVITY/PHARYNX/LARYNX: Overall: tonsils benign, oropharyngeal mucosa [...] benign; OTHER NODES: Overall: supraclavicular chain benign. Musculoskeletal: HEAD AND NECK: Cervical Spine: tender. Integument: INSPECTION OF SKIN: Overall: no rash, lesions. Neurologic: DEEP TENDON REFLEXES: Overall: deep tendon reflexes intact; MENTAL STATUS: Overall: alert and oriented; MOTOR: Overall: normal bulk, tone. Psychiatric: ORIENTATION/CONSCIOUSNESS: Overall: oriented to person, place and time; BEHAVIOR/PSYCHOMOTOR ACTIVITY: Overall: no tics, normal psychomotor activity; COGNITION/MEMORY: Overall: immediate, recent, remote memory intact and normal concentration, intelligence; JUDGMENT/INSIGHT: Overall: judgment and insight intact. Dx: (346.00) - C - Migraine, classic, not intractable (461.0) - C - Sinusitis, acute, maxillary Rx: Azithromycin 500 mg Tab, 1 Tablet(s), PO, daily, 4 days, for a total of 4, start on September 06, 2010, end on September 09, 2010, Take with food preferably. Plan: Patient given injection of Demerol and Vistaril. Also, started on azithromycin 500 mg daily for 4 days. Followup if sinus symptoms not improving by the end of the week, cleared within a week. Followup, sooner if any worsening of headache symptoms. She was given this form: 'Patient Medication Summary'. Patient Instructions: None F TRAINER documented in this encounter Plan of Treatment Not on file documented as of this encounter Visit Diagnoses Not on filedocumented in this encounter Care Teams Web Press Roll Tender Relationship Specialty Start Date End Date Amauri Amezquita MD [address] [place] [address] PCP - General Family Practice 06/13/12 08/04/20 Osmany Chavez MD [facility] [address] [address] PCP - Assigned PCP 05/26/18 12/03/18 Dipesh Florez MD [facility] [address] [place] [address] PCP - General 08/05/20 Osmany Chavez MD [facility] [address] [address] Assigned PCP 05/26/18 06/07/19 Amauri Amezquita MD [facility] [address] [place] [address] Assigned PCP 06/08/19 11/29/19 Osmany Chavez MD [address] [address] Assigned PCP 11/30/19 06/11/21 documented as of this encounter
--- OUTSIDE RECORDS SUMMARY | 2024-03-12 16:12 | XMS_ITS | Encounter Summary ---
Author Organization [facility] Address [address] [place] [address] Care Team Providers Care Barrel Loader Name Role Phone Amauri Amezquita MD Primary Care Provider Osmany Chavez MD Unavailable [phone] Osmany Chavez MD Unavailable [phone] Amauri Amezquita MD Unavailable [phone] Osmany Chavez MD Unavailable [phone] Dipesh Florez MD Primary Care Provider [phone] Encounter Details Date Type Department Care Team (Late st Contact Info) Description 03/29/2010 Clinic Report (Furnace Mason) [address] [address] Amauri Amezquita MD [facility] [address] [place] [address] Social History Tobacco Use Types Packs/Day Years Used Date Smoking Tobacco: Never Assessed Sex and Gender Information Value Date Recorded Sex Assigned at Not on file Gender Identity Not on file Sexual Orientation Not on file documented as of this encounter Progress Notes * Amauir Amezquita MD - 08/24/2012 3:30 AM CST CC/HPI: She presented for well woman exam (18-39 years). Pap smear history is significant for last normal performed on 10/2008. Menstrual history includes last menstrual period 03-17-2010? and irregular menses. The patient is sexually active with the same partner for the past 3.5 months.. 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 Body Mass Index is overweight BMI between 25 and 29.9. The patient received tetanus-diphtheria booster unknown. When asked about alcoholic beverage use, patient responds yes, screening will continue. In the past year, has had 4 or more drinks in a day never, screening is complete. Current Medication: Fluticasone 50 mcg/Actuation Nasal [place], Susp, 2 [place], NASAL, daily, 10 days, 12 refills, for a total of 1 bottle, start on February 21, 2010, end on May 05, 2010 and discontinued because: Discontinued. Atenolol 50 mg Tab, 1 Tablet(s), PO, daily, 30 days, for a total of 30, start on March 07, 2010, end on April 05, 2010 and discontinued because: Refilled. Loestrin 1/20 (21) 1 mg-20 mcg Tab, 1 Tablet(s), PO, daily, 28 days, 5 refills, for a total of 28, start on February 21, 2010, end on May 19, 2010 and discontinued because: Refilled. Lorazepam 0.5 mg Tab, 1 Tablet(s), PO, BID PRN, for a total of 10, end on March 31, 2010, panic attack and discontinued because: Refilled. ROS: Genitourinary/Nephrology: The patient complained of breast complaint (with pain and swelling.) and menstrual irregularity (with period the last 11 days. Started OCP's after bleeding started after taking the morning after pill.). Vital Signs: data collected on 03/29/2010 01:23:05 PM by Sussy Keller weight is 194 pounds clothed height is 6 feet body mass index is 28.64 Kg/m2 respiration rate is 16 bpm quiet sitting heart rate is 72 bpm radial regular blood pressure at Left Arm while Sitting is 120/70 mmHg PE: Constitutional: GENERAL APPEARANCE: Overall: well nourished, well developed and in no acute distress. Eyes: CONJUNCTIVA/EYELIDS: Overall: conjunctiva clear, cornea clear and eyelids normal; PUPILS AND IRISES: Overall: pupils equal, round, reactive to light and accomodation. Ears/Nose/Throat: EXTERNAL EAR: Overall: normal appearance; EXTERNAL NOSE: Overall: benign appearance, no masses and non-tender; OTOSCOPIC EXAM: Overall: external auditory canals clear and tympanic membranes clear; HEARING ASSESSMENT: Overall: hearing intact bilaterally; LIPS/TEETH/GINGIVA: Overall: benign lips, normal dentition, benign gingiva and no masses; ORAL CAVITY/PHARYNX/LARYNX: Overall: tonsils benign, oropharyngeal mucosa clear and no masses. Neck: THYROID: Overall: normal size, normal consistency, nontender and no mass lesions; INSPECTION OF NECK: Overall: normal appearance and no carotid bruits. Respiratory: AUSCULTATION: Overall: breath sounds clear bilaterally; RESPIRATORY EFFORT/RHYTHM: Overall: no retractions and normal rate. Cardiovascular: AUSCULTATION OF HEART: Overall: regular rate, regular rhythm, normal heart sounds and no murmurs; INSPECTION OF CAROTID PULSES: Overall: strong, bilaterally equal, no bruits; INSPECTION OF ABDOMINAL AORTA: Overall: normal diameter; INSPECTION OF PEDAL PULSES: Overall: strong, equal bilaterally; EXTREMITIES: Overall: no clubbing and no edema. Chest/Breast: BREAST AND AXILLAE PALPATION: Overall: breasts non-tender and no nipple discharge; BREAST/CHEST INSPECTION: Overall: breasts to symmetric and without lesions and normal chest shape. Abdomen: ABDOMINAL EXAM: Overall: no tenderness and normal bowel sounds; LIVER AND SPLEEN EXAM: Overall: no hepatosplenomegaly; HERNIA EXAM: Overall: no hernias present. Genitourinary: RENAL: flank No CVA tenderness; BLADDER: Overall: no tenderness. Lymphatic: NECK NODES: Overall: anterior cervical chain benign and posterior cervical chain benign; OTHER NODES: Overall: occipital chain benign, auricular chain benign and supraclavicular chain benign. Musculoskeletal: HEAD AND NECK: Overall: head atraumatic and cervical spine benign; DIGITS AND NAILS: Overall: no clubbing and digits benign; SPINE, RIBS AND PELVIS: Overall: good posture, ribs benign and spine benign; GAIT AND STATION: Overall: normal gait and normal station. Integument: INSPECTION OF SKIN: Dermatitis: acne; Location: back, chest and face; PALPATION: Overall: no induration, no tenderness. Neurologic: DEEP TENDON REFLEXES: Overall: deep tendon reflexes intact; SENSATION: Overall: intact to touch; MENTAL STATUS: Overall: alert and oriented; GAIT: Overall: no ataxia, no unsteadiness; COORDINATION: Overall: no tremors; CRANIAL NERVES: Overall: cranial nerves 2-12 intact; MOTOR: Overall: normal bulk, tone. Psychiatric: ORIENTATION/CONSCIOUSNESS: Overall: oriented to person, place and time; BEHAVIOR/PSYCHOMOTOR ACTIVITY: Overall: no tics, normal psychomotor activity; MOOD AND AFFECT: Overall: normal mood and affect; APPEARANCE: Overall: well-groomed, good eye contact; SPEECH: Overall: normal quality, no aphasia and normal quality, quantity, rate; ATTENTION: Overall: normal digit recall and number repeating; THOUGHT: Overall: normal form and content; COGNITION/MEMORY: Overall: immediate, recent, remote memory intact and normal concentration, intelligence; JUDGMENT/INSIGHT: Overall: judgment and insight intact. Dx: (V70.0) - C - ROUTINE MEDICAL EXAM (V72.62) - C - Laboratory exam as part of general physical exam (V72.41) - C - Negative test (V74.5) - C - Screening, STD (300.00) - C - Anxiety state, unspecified (300.01) - C - Panic disorder, no agoraphobia (346.00) - C - Migraine, classic, not intractable (780.79) - C - Fatigue (307.81) - C - Headache, tension (278.00) - C - Obesity (706.1) - C - Acne (626.2) - C - Menstruation, excessive/frequent (611.71) - C - Mastodynia Rx: Tylenol-Codeine #3 300 mg-30 mg Tab, 1-2 Tablet(s), PO, QID PRN, 5 refills, for a total of 30, start on March 29, 2010, end on March 28, 2010. 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: None documented in this encounter Plan of Treatment Not on file documented as of this encounter Visit Diagnoses Not on filedocumented in this encounter Care Teams Barrel Loader Relationship Specialty Start Date End Date Aamuri Amezquita MD [address] [place] [address] PCP - General Family Practice 06/13/12 08/04/20 Osmany Chavez MD [facility] [address] [address] PCP - Assigned PCP 05/26/18 12/03/18 Dipesh Florez MD [facility] [address] [place] [address] PCP - General 08/05/20 Osmany Chavez MD [facility] [address] [address] Assigned PCP 05/26/18 06/07/19 Amauri Amezquita MD [facility] [address] [place] [address] Assigned PCP 06/08/19 11/29/19 Osmany Chavez MD [facility] [address] [address] Assigned PCP 11/30/19 06/11/21 documented as of this encounter
--- OUTSIDE RECORDS SUMMARY | 2024-03-12 16:12 | XMS_ITS | Encounter Summary ---
Author Organization [facility] Address [address] [place] [address] Care Team Providers Care Fitness Coach Name Role Phone Amauri Amezquita MD Primary Care Provider Osmany Chavez MD Unavailable [phone] Osmany Chavez MD Unavailable [phone] Amauri Amezquita MD Unavailable [phone] Osmany Chavez MD Unavailable [phone] Dipesh Florez MD Primary Care Provider [phone] Encounter Details Date Type Department Care Team (Late st Contact Info) Description 10/12/2008 Clinic Report (Loss Prevention Guard) [address] [address] Amauri Amezquita MD [facility] [address] [place] [address] Social History Tobacco Use Types Packs/Day Years Used Date Smoking Tobacco: Never Assessed Sex and Gender Information Value Date Recorded Sex Assigned at Not on file Gender Identity Not on file Sexual Orientation Not on file documented as of this encounter Progress Notes * Amauri Amezquita MD - 08/24/2012 10:27 AM CST CC/HPI: She next presented for well woman exam (18-39 years). Current contraception practice includes none. Menstrual history includes last menstrual period 09-17-08, irregular menses the past month or so.Menstrual history includes normal flow usually but not the past month.Menstrual history includes menometrorrhagia. Health maintenance issues include overweight and minimal exercise. Current Medication: RELPAX 40 mg Tab, 1 Tablet(s), PO, PRN, 30 days, for a total of 12, start on September 16, 2008, end on October 15, 2008 and may repeat in 2 hours once in a 24 hour period. Maxalt-JET MAN 10 mg Tab, Rapid Dissolve, 1 Tablet(s), PO, PRN, for a total of 8, end on October 22, 2008 and may repeat after 2 hours once in a 24 hour period. Maxalt 10 mg Tab, 1 Tablet(s), PO, PRN, for a total of 2, end on October 22, 2008 and Pt. given samples by JRB/CE.. Sulindac 200 mg Tab, 1 Tablet(s), PO, BID, 30 days, 5 refills, for a total of 60, start on September 14, 2008, end on March 07, 2009 and discontinued because: Refilled. ROS: Constitutional: The patient complained of weight gain/obesity. Musculoskeletal: The patient complained of back pain (left mid back area.). Neurologic: The patient complained of headache. Vital Signs: data collected on 10/12/2008 01:25:30 PM by Sussy Keller weight is 226 pounds clothed height is 6 feet body mass index is 33.37 Kg/m2 respiration rate is 22 bpm quiet sitting heart rate is 68 bpm radial regular blood pressure at Right Arm while Sitting is 112/62 mmHg PE: Constitutional: GENERAL APPEARANCE: Overall: well developed and in no acute distress; Nourishment: obese. Genitourinary: UTERUS: Overall: normal size, normal contour, normal shape, normal mobility, nontender and no mass; CERVIX: Overall: no cervical motion tenderness, no discharge and no lesions; LABIA AND VAGINA: Overall: normal hair distribution, no discharge and no lesions; ADNEXA/PARAMETRIA: Overall: no tenderness, no enlargement, no mass lesions and normal size; URETHRA: Overall: no masses; BLADDER: Overall: no tenderness. Dx: V74.5 Screening, STD V72.31 Screening, pap 278.00 Obesity (346.00) - C - Migraine, classic, not intractable (307.81) - C - Headache, tension Rx: None 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: None IAL EFFECTS TECHNICIAN documented in this encounter Plan of Treatment Not on file documented as of this encounter Visit Diagnoses Not on filedocumented in this encounter Care Teams Fitness Coach Relationship Specialty Start Date End Date Amauri Amezquita MD [address] [place] [address] PCP - General Family Practice 06/13/12 08/04/20 Osmany Chavez MD [address] [address] PCP - Assigned PCP 05/26/18 12/03/18 Dipesh Florez MD [facility] [address] [place] [address] PCP - General 08/05/20 Osmany Chavez MD [facility] [address] [address] Assigned PCP 05/26/18 06/07/19 Amauri Amezquita MD [facility] [address] [place] [address] Assigned PCP 06/08/19 11/29/19 Osmany Chavez MD [facility] [address] [place] [address] Assigned PCP 11/30/19 06/11/21 documented as of this encounter
--- OUTSIDE RECORDS SUMMARY | 2024-03-12 16:12 | XMS_ITS | Encounter Summary ---
Author Organization [facility] Address [address] [place] [address] Care Team Providers Care Gas Collection System Operator Name Role Phone Amauri Amezquita MD Primary Care Provider Osmany Chavez MD Unavailable [phone] Osmany Chavez MD Unavailable [phone] Amauri Amezquita MD Unavailable [phone] Osmany Chavez MD Unavailable [phone] Dipesh Florez MD Primary Care Provider [phone] Encounter Details Date Type Department Care Team (Late st Contact Info) Description 06/10/2010 Clinic Report (Garment Mender) [address] [address] Amauri Amezquita MD [facility] [address] [place] [address] Social History Tobacco Use Types Packs/Day Years Used Date Smoking Tobacco: Never Assessed Sex and Gender Information Value Date Recorded Sex Assigned at Not on file Gender Identity Not on file Sexual Orientation Not on file documented as of this encounter Progress Notes * Amauri Amezquita MD - 08/24/2012 2:31 AM CST CC/HPI: She presented with vaginal bleeding. The symptom is described as chronic and intermittent. The symptom started about 4 months ago. The complaint is moderate & somewhat abd. pn.. The symptom is exacerbated by medication poss? related to Loestrin BCP's?. Current Medication: Atenolol 50 mg Tab, 1 [...] discontinued because: Refilled. Fluticasone 50 mcg/Actuation Nasal [place], Susp, 2 [place], NASAL, daily, 10 days, for a total of 1 bottle, start on May 06, 2010, end on March 13, 2011 and discontinued because: Discontinued. ROS: Constitutional: The patient complained of fatigue but denied recent illness. Neurologic: The patient denied dizziness. Vital Signs: data collected on 06/10/2010 01:25:49 PM by Sussy Keller weight is refused clothed respiration rate is 22 bpm quiet sitting heart rate is 68 bpm radial regular blood pressure at Right Arm while Sitting is 120/78 mmHg PE: Constitutional: GENERAL APPEARANCE: Overall: well nourished, well developed and in no acute distress. Dx: (626.2) - C - Menstruation, excessive/frequent Rx: Loestrin 1.5/30 (21) 1.5 mg-30 mcg Tab, 1 Tablet(s), PO, daily, 28 days, 5 refills, for a total of 28, start on June 10, 2010, end on November 24, 2010. Plan: Will see back pending review of lab tests. A return visit is indicated in 2 months. Patient Instructions: None documented in this encounter Plan of Treatment Not on file documented as of this encounter Visit Diagnoses Not on filedocumented in this encounter Care Teams Gas Collection System Operator Relationship Specialty Start Date End Date Amauri Amezquita MD [address] [place] [address] PCP - General Family Practice 06/13/12 08/04/20 Osmany Chavez MD [facility] [address] [address] PCP - Assigned PCP 05/26/18 12/03/18 Dipesh Florez [facility] [address] [place] [address] PCP - General 08/05/20 Osmany Chavez MD [facility] [address] [address] Assigned PCP 05/26/18 06/07/19 Amauri Amezquita MD [facility] [address] [place] [address] Assigned PCP 06/08/19 11/29/19 Osmany Chavez MD [facility] [address] [address] Assigned PCP 11/30/19 06/11/21 documented as of this encounter
--- OUTSIDE RECORDS SUMMARY | 2024-03-12 16:12 | XMS_ITS | Encounter Summary ---
Author Organization [facility] Address [address] [place] [address] Care Team Providers Care Overnight Stocker Name Role Phone Amauri Amezquita MD Primary Care Provider Osmany Chavez MD Unavailable [phone] Osmany Chavez MD Unavailable [phone] Amauri Amezquita MD Unavailable [phone] Osmany Chavez MD Unavailable [phone] Dipesh Florez MD Primary Care Provider [phone] Encounter Details Date Type Department Care Team (Late st Contact Info) Description 04/24/2009 Clinic Report (Delivery Driver) [address] [address] MD Social History Tobacco Use Types Packs/Day Years Used Date Smoking Tobacco: Never Assessed Sex and Gender Information Value Date Recorded Sex Assigned at Not on file Gender Identity Not on file Sexual Orientation Not on file documented as of this encounter Progress Notes * Pierce Lane MD - 08/24/2012 7:50 AM CST CC/HPI: No prior Hx of leg pain. Plays softball, having tournaments coming up next wk INTERMITTENT WITH PAIN IN BOTH LEGS PLAYING SOFT BALL BOTH SHINS HURTING FOR CERTAIN THROBBING, STRESS FRACTURE DISCUSSION, REST ICE ELEVATION ANTIINFLAMMATORIES In addition, she presented with pain, limb. LEG PAIN INTERMITTENT X SEVERAL MONTHS BOTH LEGS RIGHT GRTR THAN LEFT THROBS WHEN SITTING DOWN FROM ANKLE TO KNEE. It is located on the left leg and on the right leg. The symptom is described as acute and worsening. The symptom is ongoing. The symptom started 4 weeks ago. The complaint moderately limits activities. The symptom is exacerbated by activity. Patient denies abdominal pain, back pain, depressed mood, easy bleeding, easy bruising, erythema, fever, focal weakness, joint pain, limited range of motion, malaise, muscle atrophy, neck pain, pallor, psychiatric complaints, sensory changes, skin lesions, swelling, upper respiratory infection and warmth. Associated signs and symptoms include muscle tenderness both shins medial anterior compartments. Current Medication: Atenolol 50 mg Tab, 1 Tablet(s), PO, daily, 30 days, 5 refills, for a total of 30, start on December 21, 2008, end on June 13, 2009 and discontinued because: Refilled. Lorazepam 0.5 mg Tab, 1 Tablet(s), PO, BID PRN, for a total of 10, end on March 31, 2010, panic attack and discontinued because: Refilled. ROS: Constitutional: The patient denied fever and recent illness. Eyes: The patient denied eye pain, vision change and visual disturbance. Ears/Nose/Throat/Neck: The patient denied nasal discharge, otalgia, sinus congestion and sore throat. Cardiovascular: The patient denied chest pain/pressure, edema, exercise intolerance and palpitations. Respiratory: The patient denied cough, dyspnea/shortness of breath, productive sputum and wheezing. Gastrointestinal: The patient denied abdominal pain, constipation, diarrhea and gastroesophageal reflux. Genitourinary/Nephrology: The patient denied dysuria, flank pain and urinary incontinence. Musculoskeletal: The patient denied arthralgia(s), muscle weakness and myalgias. Dermatologic: The patient denied itching and rash. Neurologic: The patient denied dizziness, headache, mental status change and vision change. Psychiatric: The patient denied insomnia and mood swings. Hematologic/Lymphatic: The patient denied abnormal bleeding and bruising and abnormal ecchymoses. Vital Signs: data collected on 04/24/2009 09:03:13 AM by Sheldon Alcocer weight is 215 pounds 5.92 ounces clothed sitting heart rate is 68 bpm regular blood pressure at Left Arm while Sitting is 110/80 mmHg PE: tender medial barakat areas bilaterally Constitutional: GENERAL APPEARANCE: Overall: well nourished, well developed and in no acute distress. Eyes: CONJUNCTIVA/EYELIDS: Overall: conjunctiva clear, cornea clear and eyelids normal. Ears/Nose/Throat: EXTERNAL EAR: Overall: normal appearance; EXTERNAL NOSE: Overall: benign appearance, no masses and non-tender. Musculoskeletal: HEAD AND NECK: Overall: head atraumatic and cervical spine benign; DIGITS AND NAILS: Overall: no clubbing and digits benign; RIGHT UPPER EXTREMITY: Overall: right shoulder benign, right elbow benign and upper arm non-tender, without crepitus or defects; LEFT UPPER EXTREMITY: Overall: normal left shoulder, normal left elbow and upper arm non-tender, without crepitus or defects; RIGHT LOWER EXTREMITY: Palpation - right lower leg: tenderness on the barakat; LEFT LOWER EXTREMITY: Palpation - left lower leg: tenderness on the barakat. Dx: 844.9 Sprain/strain: knee/leg, unspec. (barakat splints bilateral) Rx: Lidocaine 5 % Ointment, 1 Application, TOP, QID PRN, 30 days, 3 refills, for a total of 2 TUBES, start on April 24, 2009, end on August 21, 2009. Sulindac 200 mg Tab, 1 Tablet(s), PO, BID, 30 days, 5 refills, for a total of 60, start on April 24, 2009, end on October 20, 2009. Tylenol-Codeine #3 300 mg-30 mg Tab, 1-2 Tablet(s), PO, QID PRN, 30 days, 1 refills, for a total of 40, start on April 24, 2009, end on June 22, 2009. 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: FOLLOW UP WITH [facility] 1-2 WEEK ESTEE REFERRAL , ICE 4-5 X PER DAYS STRETCHING AND RANGE OF MOTION documented in this encounter Plan of Treatment Not on file documented as of this encounter Visit Diagnoses Not on filedocumented in this encounter Care Teams Overnight Stocker Relationship Specialty Start Date End Date Amauri Amezquita MD [address] [place] [address] PCP - General Family Practice 06/13/12 08/04/20 Osmany Chavez MD [facility] [address] [address] PCP - Assigned PCP 05/26/18 12/03/18 Dipesh Florez MD [facility] [address] [place] [address] PCP - General 08/05/20 Osmany Chavez MD [facility] [address] [address] Assigned PCP 05/26/18 06/07/19 Amauri Amezquita MD [facility] [address] [place] [address] Assigned PCP 06/08/19 11/29/19 Osmany Chavez MD [facility] [address] [address] Assigned PCP 11/30/19 06/11/21 documented as of this encounter
--- OUTSIDE RECORDS SUMMARY | 2024-03-12 16:12 | XMS_ITS | Encounter Summary ---
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 The symptom is described as improving. The complaint is incapacitating. The frequency of episodes is decreasing but still getting once per month.. Current Medication: Sulindac 200 mg Tab, 1 Tablet(s), PO, BID, 30 days, 5 refills, for a total of 60, start on September 14, 2008, end on March 07, 2009 and discontinued because: Refilled. ROS: Constitutional: The patient denied recent illness. Gastrointestinal: The patient complained of vomiting (with the headache at times.) but denied constipation and diarrhea. Psychiatric: The patient complained of anxiety (with panic attacks twice a year and has used lorazepam as needed with good results.). Vital Signs: data collected on 12/21/2008 01:27:28 PM by Sussy Keller weight is 232 pounds clothed sitting heart rate is 64 bpm radial regular blood pressure at Right Arm while Sitting is 116/60 mmHg PE: Constitutional: GENERAL APPEARANCE: Overall: well nourished, well developed and in no acute distress. Dx: (346.00) - C - Migraine, classic, not intractable 300.00 Anxiety state, unspecified 300.01 Panic disorder, no agoraphobia Rx: Atenolol 50 mg Tab, 1 Tablet(s), PO, daily, 30 days, 5 refills, for a total of 30. Lorazepam 0.5 mg Tab, 1 Tablet(s), PO, BID PRN, for a total of 10, panic attack. Tylenol-Codeine #3 300 mg-30 mg Tab, 1-2 Tablet(s), PO, QID PRN, 1 refills, for a total of 40. Plan: A return visit is indicated in 2 months. Patient Instructions: None documented in this encounter Plan of Treatment Not on file documented as of this encounter Visit Diagnoses Not on filedocumented in this encounter Care Teams Paint Pourer Relationship Specialty Start Date End Date Amauri Amezquita MD [address] [address] PCP - General Family Practice 06/13/12 08/04/20 Osmany Chavez MD [facility] [address] [address] PCP - Assigned PCP 05/26/18 12/03/18 Dipesh Florez MD [facility] [address] [place] [address] PCP - General 08/05/20 Osmany Chavez MD [facility] [address] [address] Assigned PCP 05/26/18 06/07/19 Amauri Amezquita MD [facility] [address] [place] [address] Assigned PCP 06/08/19 11/29/19 Osmany Chavez MD [facility] [address] [place] [address] Assigned PCP 11/30/19 06/11/21 documented as of this encounter
--- OUTSIDE RECORDS SUMMARY | 2024-03-12 16:12 | XMS_ITS | Encounter Summary ---
Author Organization [facility] Address [address] [place] [address]. 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 Got worse as day went on. Hurts when she breathes, ribs and upper abd on R side hurt too. Softball last night. [place] great this morning. She presented with back pain. It is located diffusely, thoracic spine, lumbar-sacral spine and in the right lower back area. The symptom is described as aching, aching and worsening. The symptom is sudden in onset and ongoing. The symptom started 6 hours ago. The complaint moderately limits activities. The frequency of episodes is constant. Important triggers include walking. Mechanism of injury includes unknown. It is radiating to the umbilicus. The complaint is severe. Patient denies extremity numbness, extremity weakness and weakness. Associated signs and symptoms include myalgias. In addition, she presented with abdominal pain. It is located in the RLQ and in the RUQ. It is radiating to the back. The symptom is described as aching, aching, acute and constant. The symptom is sudden in onset and ongoing. The symptom started 6 hours ago. The complaint is incapacitating. Important triggers include activity and position change. The symptom is alleviated by rest. Patient denies anemia, constipation, diarrhea, dysuria, emesis and fever. Associated signs and symptoms include back pain and vaginal bleeding. Current Medication: Tylenol-Codeine #3 300 mg-30 mg Tab, 1-2 Tablet(s), PO, QID PRN, 5 refills, for a total of 30, start on March 29, 2010, end on January 17, 2011 and discontinued because: Refilled. Carisoprodol 350 mg Tab, 1 Tablet(s), PO, QID PRN, 6 days, for a total of 24, start on March 30, 2010 and end on April 04, 2010. Fluticasone 50 mcg/Actuation Nasal [place], Susp, 2 [place], NASAL, daily, 10 days, 12 refills, for [...] May 19, 2010 and discontinued because: Refilled. Hydrocodone-Acetaminophen 7.5 mg-325 mg Tab, 1 Tablet(s), PO, QID PRN, 6 days, for a total of 24, start on March 30, 2010 and end on April 04, 2010. Lorazepam 0.5 mg Tab, 1 Tablet(s), PO, BID PRN, for a total of 10, end on March 31, 2010, panic attack and discontinued because: Refilled. ROS: Constitutional: The patient denied chills, fatigue, fever, night sweats, recent illness and weight loss. Eyes: The patient denied eye pain, vision change and visual disturbance. Ears/Nose/Throat/Neck: The patient denied hearing loss, nasal discharge, postnasal drip, sinus congestion and sore throat. Cardiovascular: The patient denied arrhythmia, chest pain/pressure, edema and palpitations. Respiratory: The patient denied asthma, cough, dyspnea/shortness of breath, productive sputum and wheezing. Gastrointestinal: The patient complained of abdominal pain. Genitourinary/Nephrology: The patient complained of breast complaint (tenderness), flank pain and menstrual irregularity (prolonged bleeding). Musculoskeletal: The patient complained of back pain. Dermatologic: The patient denied itching and rash. Neurologic: The patient denied dizziness, headache, memory loss, mental status change, neck pain, paresthesia, syncope and weakness. Psychiatric: The patient denied anxiety, depression, insomnia and mood swings. Endocrine: The patient denied diabetes mellitus type 1, diabetes mellitus type 2, polyuria and thyroid disease. Hematologic/Lymphatic: The patient denied abnormal bleeding and bruising, abnormal ecchymoses, anemia and lymph node enlargement/mass. Vital Signs: data collected on 03/30/2010 02:00:57 PM by Ambreen Wallace weight is 194 pounds clothed height is 6 feet body mass index is 28.64 Kg/m2 sitting heart rate is 60 bpm regular blood pressure at Right Arm while Sitting is 128/70 mmHg PE: Constitutional: GENERAL APPEARANCE: Overall: well nourished, well developed and in no acute distress. Eyes: CONJUNCTIVA/EYELIDS: Overall: conjunctiva clear and eyelids normal. Ears/Nose/Throat: INTERNAL NOSE: Overall: bilateral nasal cavities clear; ORAL CAVITY/PHARYNX/LARYNX: Overall: tonsils benign, oropharyngeal mucosa clear and no masses. Respiratory: AUSCULTATION: Overall: breath sounds clear bilaterally; RESPIRATORY EFFORT/RHYTHM: Overall: no retractions and normal rate. Cardiovascular: AUSCULTATION OF HEART: Overall: regular rate, regular rhythm, normal heart sounds and no murmurs; INSPECTION OF CAROTID PULSES: Overall: strong, bilaterally equal, no bruits; EXTREMITIES: Overall: no edema. Abdomen: ABDOMINAL EXAM: Bowel sounds: a normal exam Left upper quadrant: non-tender to palpation and soft Left lower quadrant: tender to palpation and no rebound tenderness Right upper quadrant: tender to palpation, rebound tenderness and soft; Right lower quadrant: tender to palpation, rebound tenderness and soft; LIVER AND SPLEEN EXAM: Overall: no hepatosplenomegaly. Genitourinary: RENAL: flank CVA tenderness; BLADDER: Overall: no tenderness. Lymphatic: NECK NODES: Overall: anterior cervical chain benign and posterior cervical chain benign; INGUINAL NODES: Overall: inguinal non-tender, not enlarged. Musculoskeletal: SPINE, RIBS AND PELVIS: Ribs: impaired [...] JUDGMENT/INSIGHT: Overall: judgment and insight intact. Dx: (789.01) - C - Abdominal pain, RUQ (789.03) - C - Abdominal pain, RLQ Rx: None Plan: Patient was sent for urgent CT of the abdomen and pelvis at [facility]. Further recommendations pending CT results. I spoke with patient about 8:[address] scan was reported back as normal. Pain was unchanged. I did call in prescriptions for hydrocodone, acetaminophen 7.5/325, and carisoprodol 350 mg one, up to q.i.d. Patient is advised to call the morning with an update. Patient Instructions: None * Rich David, DO - 08/24/2012 3:28 AM CST CC/HPI: None Current Medication: Tylenol-Codeine #3 300 mg-30 mg Tab, 1-2 Tablet(s), PO, QID PRN, 5 refills, for a total of 30, start on March 29, 2010, end on January 17, 2011 and discontinued because: Refilled. Carisoprodol 350 mg Tab, 1 Tablet(s), PO, QID PRN, 6 days, for a total of 24, start on March 30, 2010 and end on April 04, 2010. Fluticasone 50 mcg/Actuation Nasal [place], Susp, 2 [place], NASAL, daily, 10 days, 12 refills, for [...] May 19, 2010 and discontinued because: Refilled. Hydrocodone-Acetaminophen 7.5 mg-325 mg Tab, 1 Tablet(s), PO, QID PRN, 6 days, for a total of 24, start on March 30, 2010 and end on April 04, 2010. Lorazepam 0.5 mg Tab, 1 Tablet(s), PO, BID PRN, for a total of 10, end on March 31, 2010, panic attack and discontinued because: Refilled. ROS: None PE: None Dx: (789.00) - C - Abdominal pain, unspec. Rx: None 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: None documented in this encounter Plan of Treatment Not on file documented as of this encounter Visit Diagnoses Not on filedocumented in this encounter Care Teams Occupational Therapist Rehab Manager Relationship Specialty Start Date End Date Amauri Amezquita MD [address] [place] [address] PCP - General Family Practice 06/13/12 08/04/20 Osmany Chavez MD [facility] [address] [address] PCP - Assigned PCP 05/26/18 12/03/18 Dipesh Florez MD [facility] [address] [place] [address] PCP - General 08/05/20 Osmany Chavez MD [facility] [address] [address] Assigned PCP 05/26/18 06/07/19 Amauri Amezquita MD [facility] [address] [place] [address] Assigned PCP 06/08/19 11/29/19 Osmany Chavez MD [facility] [address] [id number] Assigned PCP 11/30/19 06/11/21 documented as of this encounter
--- OUTSIDE RECORDS SUMMARY | 2024-03-12 16:12 | XMS_ITS | Encounter Summary ---
Author Organization [facility] Address [address] [place] [address]. 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 (History of migraines) Has taken pain pill and muscle relaxer today and just dulls the pain. No new symptoms. No GI or symptoms. No shortness of breath. Still having pain with motion or with deep breath. Pain right side of the abdomen and around the ribs She presented with back pain. It is located diffusely, thoracic spine, lumbar-sacral spine and in the right lower back area. The symptom is described as aching, aching and constant and constant. The symptom is sudden in onset and ongoing. The symptom started 1 days ago. The complaint moderately limits activities and is incapacitating. The frequency of episodes is constant. Important triggers include no known associated factors. The symptom is alleviated by medication. The symptom is exacerbated by position change. Mechanism of injury includes unknown. It is radiating to the umbilicus. The complaint is severe. Patient denies extremity numbness, extremity weakness and weakness. Associated signs and symptoms include headache and myalgias. In addition, she presented with abdominal pain. It is located in the RLQ and in the RUQ. It is radiating to the back. The symptom is described as aching, aching, acute and constant and constant. The symptom is sudden in onset and ongoing. The complaint is incapacitating. Important triggers include activity and position change. The symptom is alleviated by rest. Patient denies anemia, constipation, diarrhea, dysuria, emesis and fever. Current Medication: Tylenol-Codeine #3 300 mg-30 mg [...] April 04, 2010. Fluticasone 50 mcg/Actuation Nasal [place], Susp, 2 [place], NASAL, daily, 10 days, 12 refills, for [...] Refilled. ROS: Constitutional: The patient denied chills, fever, night sweats, recent illness and weight loss. Eyes: The patient denied eye pain, vision change and visual disturbance. Ears/Nose/Throat/Neck: The patient denied nasal discharge, sinus congestion and sore throat. Cardiovascular: The patient denied chest pain/pressure, edema and palpitations. Respiratory: The patient denied asthma, cough and dyspnea/shortness of breath. Gastrointestinal: The patient complained of abdominal pain. Genitourinary/Nephrology: The patient complained of flank pain and menstrual irregularity (prolonged bleeding ). Musculoskeletal: The patient complained of back pain. Dermatologic: The patient denied itching and rash. Neurologic: The patient denied dizziness, memory loss, mental status change, neck pain, paresthesia, syncope and weakness. Psychiatric: The patient denied anxiety and depression. Endocrine: The patient denied diabetes mellitus type 1, diabetes mellitus type 2, polyuria and thyroid disease. Hematologic/Lymphatic: The patient denied abnormal bleeding and bruising, abnormal ecchymoses and anemia. Allergy/Immunology: The patient denied food allergy and rhinitis. Vital Signs: data collected on 03/31/2010 01:30:46 PM by Ambreen Wallace weight is 194 pounds clothed height is 6 feet body mass index is 28.64 Kg/m2 sitting heart rate is 76 bpm regular blood pressure at Left Arm while Sitting is 128/82 mmHg PE: There was point tenderness at around the T9, T10, level: Around to the front. The rib belt/elastic support was applied to the area, but seem to make symptoms worse. A Lidoderm patch was applied to the right paraspinal area. T9-T12. X-ray of the thoracic, lumbar spine was unremarkable. There was residual contrast in the colon from the CT scan yesterday. Constitutional: GENERAL APPEARANCE: Overall: well nourished and well developed; Evidence of Distress: in distress secondary to pain. Eyes: CONJUNCTIVA/EYELIDS: Overall: conjunctiva clear, cornea clear and eyelids normal. Neck: INSPECTION OF NECK: Overall: normal appearance and no carotid bruits. Respiratory: AUSCULTATION: Overall: breath sounds clear bilaterally; RESPIRATORY EFFORT/RHYTHM: Overall: no retractions and normal rate. Cardiovascular: AUSCULTATION OF HEART: Overall: regular rate, regular rhythm, normal heart sounds and no murmurs; INSPECTION OF CAROTID PULSES: Overall: strong, bilaterally equal, no bruits; EXTREMITIES: Overall: no clubbing and no edema. Abdomen: ABDOMINAL EXAM: Left upper quadrant: non-tender to palpation and soft Left lower quadrant: tender to palpation and no rebound tenderness Right upper quadrant: tender to palpation and soft; Right lower quadrant: tender to palpation and soft; LIVER AND SPLEEN EXAM: Overall: no hepatosplenomegaly. Genitourinary: RENAL: flank CVA tenderness; BLADDER: Overall: no tenderness. Lymphatic: NECK NODES: Overall: anterior cervical chain benign and posterior cervical chain benign. Musculoskeletal: SPINE, RIBS AND PELVIS: Ribs: impaired [...] - C - Back pain w/radiation, unspec. (789.01) - C - Abdominal pain, RUQ (789.03) - C - Abdominal pain, RLQ Rx: None Plan: Patient was given samples on Lidoderm patches, advised to call in the morning with an update. She was given this form: 'Patient Medication Summary'. Patient Instructions: None documented in this encounter Plan of Treatment Not on file documented as of this encounter Visit Diagnoses Not on filedocumented in this encounter Care Teams Beverage Server Relationship Specialty Start Date End Date Amauri Amezquita MD [address] [place] [address] PCP - General Family Practice 06/13/12 08/04/20 Osmany Chavez MD [address] [address] PCP - Assigned PCP 05/26/18 12/03/18 Dipesh Florez MD [facility] [address] [place] [address] PCP - General 08/05/20 Osmany Chavez MD [address] [address] Assigned PCP 05/26/18 06/07/19 Amauri Amezquita MD [facility] [address] [place] [address] Assigned PCP 06/08/19 11/29/[address] [facility] [address] [address] Assigned PCP 3/1/20 9/11/21 documented as of this encounter
--- OUTSIDE RECORDS SUMMARY | 2024-03-12 16:12 | XMS_ITS | Encounter Summary ---
Author Organization [facility] Address [address] [place] [address]. [place] [address] Care Team Providers Care Rail Tractor Operator Name Role Phone Amauri Amezquita MD Primary Care Provider Osmany Chavez MD Unavailable [phone] Osmany Chavez MD Unavailable [phone] Amauri Amezquita MD Unavailable [phone] Osmany Chavez MD Unavailable [phone] Dipesh Florez MD Primary Care Provider [phone] Encounter Details Date Type Department Care Team (Late st Contact Info) Description 07/22/2009 Clinic Report (Taker Away) [facility] [address] [place] [id number] Rich David DO XXX XXX [address] [place], [place] [address] [phone] Social History Tobacco Use Types Packs/Day Years Used Date Smoking Tobacco: Never Assessed Sex and Gender Information Value Date Recorded Sex Assigned at Not on file Gender Identity Not on file Sexual Orientation Not on file documented as of this encounter Progress Notes * Rich David DO - 08/24/2012 6:42 AM CST CC/HPI: History of migraines. Cannot take Imitrex causes flushing, chest pain, anxiety. Current headaches started 4 days ago. Caffeine. Also has some sinus symptoms. History of some sinus problems in the past as well Has been doing fairly well on the atenolol. She does have an appointment to follow up with Dr. Amezquita in August. She presented with headache. It is located diffusely and in the frontal area most prominent. The symptom is described as aching, acute and constant. The symptom is gradual in onset. The symptom started 4 days ago. The complaint moderately limits activities. The frequency of episodes is daily. Pertinent other conditions include migraines. Important triggers include caffeine intake ?. The symptom is alleviated by darkness and quiet/silence. The symptom is exacerbated by lack of sleep, loud noises, sunlight and weather change. Associated signs and symptoms include facial pain, headache, nausea, photophobia and vomiting. Current Medication: Sulindac 200 mg Tab, 1 [...] Constitutional: The patient complained of recent illness but denied chills and fever. Eyes: The patient complained of photophobia but denied vision change and visual disturbance. Ears/Nose/Throat/Neck: The patient complained of headache and sinus congestion. Cardiovascular: The patient denied chest pain/pressure, edema, exercise intolerance and palpitations. Respiratory: The patient denied cough, dyspnea/shortness of breath, productive sputum and wheezing. Gastrointestinal: The patient complained of nausea. Genitourinary/Nephrology: The patient complained of dysuria and flank pain. Dermatologic: The patient denied itching and rash. Neurologic: The patient complained of vision change (sensitive to light). Psychiatric: The patient complained of anxiety. Endocrine: The patient complained of diabetes mellitus type 1, diabetes mellitus type 2 and obesity. Hematologic/Lymphatic: The patient denied abnormal bleeding and bruising and abnormal ecchymoses. Allergy/Immunology: The patient complained of rhinitis. Vital Signs: data collected on 07/22/2009 11:39:24 AM by Ambreen Wallace weight is 230 pounds clothed sitting heart rate is 84 bpm regular blood pressure at Right Arm while Sitting is 142/80 mmHg PE: Constitutional: GENERAL APPEARANCE: Overall: well nourished and well developed Nourishment: obese; Evidence of Distress: in distress secondary to pain. Eyes: CONJUNCTIVA/EYELIDS: Overall: conjunctiva clear and eyelids normal; PUPILS AND IRISES: Overall: pupils equal, round. Ears/Nose/Throat: EXTERNAL NOSE: Overall: benign appearance, no masses and non-tender; OTOSCOPIC EXAM: Overall: external auditory canals clear and tympanic membranes clear; INTERNAL NOSE: Left nasal cavity: mucosal edema; Right nasal cavity: mucosal edema; LIPS/TEETH/GINGIVA: Overall: lips/teeth/gingiva, normal dentition, benign gingiva and no masses; [...] CAROTID PULSES: Overall: strong, bilaterally equal, no bruits. Genitourinary: RENAL: flank No CVA tenderness. Lymphatic: NECK NODES: Left anterior cervical chain: number of palpable nodes: 1, firm and tender; Right anterior cervical chain: number of palpable nodes: 1, firm and tender; OTHER NODES: Overall: occipital chain benign, auricular chain benign and supraclavicular chain benign. Musculoskeletal: HEAD AND NECK: Overall: head atraumatic and cervical spine benign. Integument: INSPECTION OF SKIN: Overall: no rash, lesions. Neurologic: DEEP TENDON REFLEXES: Overall: deep tendon reflexes intact; MENTAL STATUS: Overall: alert and oriented. Psychiatric: ORIENTATION/CONSCIOUSNESS: Overall: oriented to person, place and time; BEHAVIOR/PSYCHOMOTOR ACTIVITY: Overall: no tics, normal psychomotor activity; COGNITION/MEMORY: Overall: immediate, recent, remote memory intact and normal concentration, intelligence; JUDGMENT/INSIGHT: Overall: judgment and insight intact. Dx: (461.1) - C - Sinusitis, acute, frontal (346.00) - C - Migraine, classic, not intractable Rx: Azithromycin 500 mg Tab, 1 Tablet(s), PO, daily, 4 days, for a total of 4, start on July 22, 2009, end on July 25, 2009, Take with food. Ondansetron HCl 4 mg Tab, 1 Tablet(s), PO, Q6-8H&PRN, for a total of 4, start on July 22, 2009, For migraine induced nausea. Plan: Follow up if no improvement over the next 24 hours sooner if worsening. Started on azithromycin for sinusitis, and a prescription for Zofran 4 mg for nausea. Patient Instructions: None documented in this encounter Plan of Treatment Not on file documented as of this encounter Visit Diagnoses Not on filedocumented in this encounter Care Teams Rail Tractor Operator Relationship Specialty Start Date End Date Amauri Amezquita MD [address] [facility] [address] PCP - General Family Practice 06/13/12 08/04/20 Osmany Chavez MD [address] [address] PCP - Assigned PCP 05/26/18 12/03/18 Dipesh Florez MD [facility] [place] [address] [place] [address] PCP - General 08/05/20 Osmany Chavez MD [address] [place] [address] Assigned PCP 05/26/18 06/07/19 Amauri Amezquita MD [facility] [address] [place] [address] Assigned PCP 06/08/19 11/29/19 Osmany Chavez MD [facility] [address] [place] [address] Assigned PCP 11/30/19 06/11/21 documented as of this encounter
--- OUTSIDE RECORDS SUMMARY | 2024-03-12 16:12 | XMS_ITS | Encounter Summary ---
Author Organization [facility] Address [address] [place] [address] Care Team Providers Care Director Loan Name Role Phone Amauri Amezquita MD Primary Care Provider Osmany Chavez MD Unavailable [phone] Osmany Chavez MD Unavailable [phone] Amauri Amezquita MD Unavailable [phone] Osmany Chavez MD Unavailable [phone] Dipesh Florez MD Primary Care Provider [phone] Encounter Details Date Type Department Care Team (Late st Contact Info) Description 10/22/2010 Clinic Report (Fire Protection Engineer) [address] [id number] [place] [address] [facility] [place] [address] Social History Tobacco Use Types Packs/Day Years Used Date Smoking Tobacco: Never Assessed Sex and Gender Information Value Date Recorded Sex Assigned at Not on file Gender Identity Not on file Sexual Orientation Not on file documented as of this encounter Progress Notes * Pat Montano DO - 08/24/2012 12:44 AM CST CC/HPI: She presented with vaginal discharge. The symptom is described as foul-smelling and worsening. The symptom is sudden in onset. The symptom started 1 weeks ago. The complaint is moderate. The frequency of episodes is daily and increasing. Current Medication: Atenolol 50 mg Tab, 1 [...] discontinued because: Refilled. Fluticasone 50 mcg/Actuation Nasal [place], Susp, 2 [place], NASAL, daily, 10 days, for a total of 1 bottle, start on May 06, 2010, end on March 13, 2011 and discontinued because: Discontinued. Loestrin 1.5/30 (21) 1.5 mg-30 mcg Tab, 1 Tablet(s), PO, daily, 28 days, 5 refills, for a total of 28, start on June 10, 2010, end on November 03, 2010 and discontinued because: Refilled. Acetaminophen-Codeine 300 mg-30 mg Tab, 1-2 Tablet(s), PO, QID PRN, 5 refills, for a total of 30, start on October 07, 2010, end on November 17, 2010 and OK per [facility] with #30 and 5 additional RF's.. ROS: last antibiotics were about a month ago for sinus infection. Constitutional: The patient denied fever. Gastrointestinal: The patient denied abdominal pain, diarrhea and vomiting. Genitourinary/Nephrology: The patient complained of vaginal discharge (wondering about yeast or bv. engaged. no new partners. declines std testing at this time.) but denied dysuria, pelvic pain and . Allergy/Immunology: The patient denied food allergy. Vital Signs: data collected on 10/22/2010 10:01:23 AM by Maria Luisa Hernandez weight is 189 pounds clothed sitting heart rate is 80 bpm radial regular blood pressure at Left Arm while Sitting is 122/76 mmHg PE: Constitutional: GENERAL APPEARANCE: Overall: well nourished, well developed and in no acute distress. Abdomen: ABDOMINAL EXAM: Overall: no tenderness. Genitourinary: CERVIX: Overall: pelvic exam negative; Cervical discharge: white; LABIA AND VAGINA: Overall: normal external genitalia. Dx: (623.5) - C - Vaginal discharge (616.10) - C - BV (bacterial vaginosis) (112.1) - C - Yeast vaginitis Rx: Diflucan 150 mg Tab, 1 Tablet(s), PO, daily, 1 days, for a total of 1, start on October 22, 2010, end on October 22, 2010. Metronidazole 0.75 % Vaginal Gel, 1 Application, VAG, QHS, 5 days, for a total of qs, start on October 22, 2010, end on October 26, 2010, no etoh while on this medication.. Plan: diflucan 150 mg po x one dose today. Metronidazole vaginal gel 0.75%, 1 applicatorful per vagina qhs for 5 days. Do not consume alcohol while on this medicine. T&M-clue cells and yeast present. I explained to patient to use a second form of contraception while on these meds, until she finishes her current bc pack, has her next period, and starts her next bc pack. pt tx with rich about a week ago per pt. she did otc bv test which was negative per pt. I advised patient to make a recheck doctor appointment in 1-2 weeks if complete resolution not noted by that time. I reviewed the risks, benefits, and alternatives of plan, and the patient understands, agrees, and wishes to proceed. She was given this form: 'Patient Medication Summary'. Patient Instructions: None ARCHITECT documented in this encounter Plan of Treatment Not on file documented as of this encounter Visit Diagnoses Not on filedocumented in this encounter Care Teams Director Loan Relationship Specialty Start Date End Date Amauri Amezquita MD [address] [place] [address] PCP - General Family Practice 06/13/12 08/04/20 Osmany Chavez MD [facility] [address] [address] PCP - Assigned PCP 05/26/18 12/03/18 Dipesh Florez MD [facility] [address] [place] [address] PCP - General 08/05/20 Osmany Chavez MD [facility] [address] [address] Assigned PCP 05/26/18 06/07/19 Amauri Amezquita MD [facility] [address] [place] [address] Assigned PCP 06/08/19 11/29/19 Osmany Chavez MD [facility] [address] [address] Assigned PCP 11/30/19 06/11/21 documented as of this encounter
--- OUTSIDE RECORDS SUMMARY | 2024-03-12 16:12 | XMS_ITS | Encounter Summary ---
Author Organization [facility] Address [address] [place] [address] Care Team Providers Care Sales Representative Jewelry Name Role Phone Amauri Amezquita MD Primary Care Provider Osmany Chavez MD Unavailable [phone] Osmany Chavez MD Unavailable [phone] Amauri Amezquita MD Unavailable [phone] Osmany Chavze MD Unavailable [phone] Dipesh Florez MD Primary Care Provider [phone] Encounter Details Date Type Department Care Team (Late st Contact Info) Description 09/14/2008 Clinic Report (Aboriginal Education Teacher) [address] [phone] Amauri Amezquita MD [address] [place] [address] Social History Tobacco Use Types Packs/Day Years Used Date Smoking Tobacco: Never Assessed Sex and Gender Information Value Date Recorded Sex Assigned at Not on file Gender Identity Not on file Sexual Orientation Not on file documented as of this encounter Progress Notes * Amauri Amezquita MD - 08/24/2012 10:46 AM CST CC/HPI: She next presented with headache. It is located on the left and on the right but then generalizes over the whole head once per month.. The symptom started during childhood at age 10.. Important triggers include menses for the migraine headaches.. The symptom is exacerbated by sunlight. She presented with wrist pain. The symptom started 1-2 weeks ago. The frequency of episodes is decreasing. The complaint is moderate. Mechanism of injury includes repetitive motion with computer use.. In addition, she presented with back pain. ROS: Constitutional: The patient denied chills and fever. Neurologic: The patient denied dizziness, headache, paresthesia and weakness. Vital Signs: data collected on 09/14/2008 01:21:06 PM by Sussy Keller weight is 227 pounds clothed sitting heart rate is 68 bpm radial regular blood pressure at Right Arm while Sitting is 118/62 mmHg PE: Constitutional: GENERAL APPEARANCE: Overall: Constitutional and in no acute distress; Nourishment: obese. Eyes: CONJUNCTIVA/EYELIDS: Overall: conjunctiva clear, cornea clear and eyelids normal; PUPILS AND IRISES: Overall: pupils equal, round, reactive to light and accomodation. Musculoskeletal: RIGHT UPPER EXTREMITY: Inspection - right wrist: a normal exam Palpation - right wrist: tender; ROM - right wrist: pain with radial bending. Neurologic: GAIT: Overall: no ataxia, no unsteadiness. Dx: 346.00 Migraine, classic, not intractable 307.81 Headache, tension 727.06 Tenosynovitis, foot/ankle (right wrist) Rx: RELPAX 40 mg Tab, 1 Tablet(s), PO, PRN, 5 refills, for a total of 12, may repeat in 2 hours once in a 24 hour period. Sulindac 200 mg Tab, 1 Tablet(s), PO, BID, 30 days, 5 refills, for a total of 60. 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: None [facility] documented in this encounter Plan of Treatment Not on file documented as of this encounter Visit Diagnoses Not on filedocumented in this encounter Care Teams Sales Representative Jewelry Relationship Specialty Start Date End Date Amauri Amezquita MD [address] [place] [address] PCP - General Family Practice 06/13/12 08/04/20 Osmany Chavez MD [facility] [address] [address] PCP - Assigned PCP 05/26/18 12/03/18 Dipesh Florez MD [facility] [address] [place] [address] PCP - General 08/05/20 Osmany Chavez MD [address] [address] Assigned PCP 05/26/18 06/07/19 Amauri Amezquita MD [address] [place] [address] Assigned PCP 06/08/19 11/29/19 Osmany Chavez MD [address] [address] Assigned PCP 11/30/19 06/11/21 documented as of this encounter
--- OUTSIDE RECORDS SUMMARY | 2024-03-12 16:13 | XMS_ITS | Continuity of Care Document ---
Author Organization ELISSA Stroud LANDSCAPE TECHNICIAN, [id number] Address [address] [facility] [address] [place] [address] Assessment Encounter Date Assessment Date Assessment LastModified by Organization Details LastModified Time 02/26/2024 02/26/2024 I spent a total of 20 minutes providing care for this patient including: preparing to see the patient, obtaining a medical history, completing a medically appropriate physical exam, completing documentation of visit information and plans in the EMR, counseling the patient and/or caregiver regarding her diagnosis, treatment options and follow up plans, as well as any necessary communication of subsequent test results to the patient Not available 02/26/2024 16:36:09 Plan of Treatment Reminders Order Date Submit Date Provider Last Modified By Organization Details Last Modified Time Details Appointments None recorded. Lab urinalysis , dipstick, auto 2023 024 [email or web address] [id number] [facility] , [address] [place] [address] Clyde Peru, [facility] [address], [place], [address], 4 17:40:51 bacterial vaginosis + vaginitis panel, vaginal 2023 024 [place] [id number] [facility] , [address] [place] [address] Clyde Maria Guadalupe, [facility] [address], [place], [address], 4 10:26:42 FSH (follicle- stimulatin g hormone), serum [address], [id number], [place], [address], 11:32:45 Referral None recorded. Procedures None recorded. Surgeries None recorded. Imaging None recorded. Medication Orders estradiol 0.01% (0.1 mg/gram) vaginal cream 2023 024 [facility], [address] [place], [address], 16:46:01 Patient TargetsNo targets recorded. Patient Instructions Encounter Date Encounter Id Patient Instructions Last Modified By Organization Details Last Modified Time 02/26/2024 [id number] -overall exam relatively unremarkable, small amount vaginal discharge -Affirm pending for vaginal yeast/BV, treat as indicated -symptoms may be hormonally mediated, offered trial of vaginal estradiol, accepts; instructed to insert vaginally and apply externally to vulvar tissues -continue pelvic floor PT -discussed option of sexual medicine evaluation if no improvement with estradiol or PFPT, gave names of providers [email or web address] Not available 02/26/2024 16:44:24 Reason for Referral None Reported. Results Created Date Observation Date Name Description Value Unit Range Abnormal Flag LastModifiedBy Organization Detail LastModifiedTime 02/26/20 24 02/26/2024 urina lysis , dipst ick, auto Unknown Analyte Clean Catch Not Available [id number], [address], 02/26/2024 15:27:02 02/26/20 24 02/26/2024 urina lysis , dipst ick, auto Unknown Analyte negati ve Not Available [id number], [address], 02/26/2024 15:27:02 02/26/20 24 02/26/2024 urina lysis , dipst ick, auto Unknown Analyte negati ve Not Available [address], [address], 02/26/2024 15:27:02 02/26/20 24 02/26/2024 urina lysis , dipst ick, auto Unknown Analyte negati ve Not Available [address], [place], [address], 02/26/2024 15:27:02 02/26/20 24 02/26/2024 urina lysis , dipst ick, auto Unknown Analyte 1.030 Not Available [address], [place], [address], 02/26/2024 15:27:02 02/26/20 24 02/26/2024 urina lysis , dipst ick, auto Unknown Analyte negati ve Not Available [address], [place], [address], 02/26/2024 15:27:02 02/26/20 24 02/26/2024 urina lysis , dipst ick, auto Unknown Analyte 6.0 Not Available [address], [place], [address], 02/26/2024 15:27:02 02/26/20 24 02/26/2024 urina lysis , dipst ick, auto Unknown Analyte negati ve Not Available [address], [place], [address], 02/26/2024 15:27:02 02/26/20 24 02/26/2024 urina lysis , dipst ick, auto Unknown Analyte 0.2 Not Available [address], [place], [address], 02/26/2024 15:27:02 02/26/20 24 02/26/2024 urina lysis , dipst ick, auto Unknown Analyte negati ve Not Available [id number] [address], [place], [address], 02/26/2024 15:27:02 02/26/20 24 02/26/2024 urina lysis , dipst ick, auto Unknown Analyte negati ve Not Available [address], [place], [address], 02/26/2024 15:27:02 02/26/20 24 02/26/2024 urina lysis , dipst ick, auto Unknown Analyte yellow Not Available [address], [place], [address], 02/26/2024 15:27:02 02/26/20 24 02/26/2024 urina lysis , dipst ick, auto Unknown Analyte clear Not Available [address], [place], [address], 02/26/2024 15:27:02 Result Notes None recorded. Problems No Known Problems Procedures Surgical History Date Name Laterality Status Provider Name and Address Organization Details Recorded Time 03/07/20 23 Date of Last Mammogram completed ELISSA Perkins - LANDSCAPE TECHNICIAN 03/08/2023 14:25:20 06/22/20 22 Date of Last Colonoscopy completed ELISSA Murphy LANDSCAPE TECHNICIAN 04/30/2023 10:09:43 09/19/20 21 Blank Procedure [place] [address] [facility],[address], [place], [address], ELISSA - [facility] LANDSCAPE TECHNICIAN 10/03/2021 15:33:47 09/16/20 21 Blank Procedure [place] [address] [address], [place], [address], [facility]CHNIC[facility] 10/03/2021 14:39:04 09/13/20 21 Blank Procedure [place] [address] [address], [place], [address], [facility]APE TECHNICIAN 09/27/2021 13:15:37 09/05/20 21 LABIAPLASTY (SURG) completed Viviana Chen null, [facility] LANDSCAPE TECHNICIAN 09/12/2021 13:39:57 04/01/20 21 Date of Last Pap Smear completed Alethea Rodarte(T erm) null, [facility] LANDSCAPE TECHNICIAN 04/14/2021 13:58:20 07/13/20 20 Endometrial Biopsy Procedure Note ([facility]) [place] [address] [address], [place], [address], [facility] - [facility] LANDSCAPE TECHNICIAN 07/13/2020 15:47:10 07/13/20 20 endometrial biopsy completed Sal Nino null, [facility] LANDSCAPE TECHNICIAN 07/16/2020 11:14:09 04/12/20 18 Remove intrauterine [place] [address] [address], [place], [address], [facility]CHNIC[facility] 07/13/2020 15:55:03 02/09/20 18 Insert intrauterine [place] [address] [address], [place], [address], [facility] LANDSCAPE TECHNICIAN 07/13/2020 15:55:53 08/28/20 16 [place] [address] [address], [place], [address], [facility] LANDSCAPE TECHNICIAN 07/13/2020 15:56:18 12/20/19 14 colposcopy [place] [address] [address], [place], [address], [facility] - [facility] LANDSCAPE TECHNICIAN 07/13/2020 15:56:03 10/01/19 11 loop electrosurgical excision [place] [address] [address] [facility],[address], [place], [address], [facility] - [facility] LANDSCAPE TECHNICIAN 07/13/2020 15:54:59 03/01/20 05 [place] [address] [address] [facility],[address], [place], [address], [facility] - [facility] LANDSCAPE TECHNICIAN 07/13/2020 15:55:30 tooth extraction completed Not Available [facility] 05/10/2020 01:04:43 re-release of carpal tunnel completed Not Available [facility] 05/10/2020 01:04:43 Imaging Results None recorded. Procedure Notes None recorded. Medical Equipment None Reported. Allergies Allergen ID Allergen Name Allergen Category Reaction Reaction Severity Criticality Documentation Date Start Date Code Code System Note Provider Name and Address Organization Details Recorded Time 511372 sumatript an medicatio n Not available Not available Not available 05/07/2020 10684 RxNorm *Note : 03/30 - anxie ty Not Available [facility] 0 16:55:58 Medications Name Sig Start Date Stop Date Status Note LastModified by Organization Details LastModified Time quetiapine 25 mg tablet TAKE 1 TABLET BY MOUTH AT BEDTIME 09/09 completed Not Available Not Available Not Available celecoxib 200 mg capsule TAKE 1 CAPSULE BY MOUTH TWICE DAILY NEEDED FOR PAIN 06/26 completed Not Available Not Available Not Available cyclobenza amirah 10 mg tablet active Not Available Not Available No t Available amoxicilli n 500 mg capsule TAKE 2 CAPSULES BY MOUTH THREE TIMES DAILY DIRECTED 02/25 completed Not Available Not Available Not Available Vitamin B-2 100 mg tablet TAKE 1 TABLET BY MOUTH ONCE DAILY active Not Available Not Available No t Available doxycyclin e hyclate 100 mg capsule TAKE 1 CAPSULE BY MOUTH TWICE DAILY FOR 10 DAYS 02/25 completed Not Available Not Available Not Available paroxetine 10 mg tablet TAKE 2 TABLETS BY MOUTH ONCE DAILY 09/09 completed Not Available Not Available Not Available tizanidine 2 mg tablet TAKE 1/2 TO 1 (ONE-SHASHA F TO ONE) TABLET BY MOUTH TWICE DAILY NEEDED FOR MUSCLE PAIN AND TENSION active Not Available Not Available No t Available trazodone 50 mg tablet TAKE 1 TABLET BY MOUTH ONCE DAILY AT BEDTIME active Not Available Not Available No t Available fluconazol e 150 mg tablet TAKE 1 TABLET BY MOUTH SINGLE DOSE DIRECTED REPEAT IN 3 DAYS IF SYMPTOMS PERSIST. active Not Available Not Available No t Available cephalexin 250 mg capsule 09/19 completed Not Available Not Available Not Available hydrocodon e 5 mg-acetami nophen 325 mg tablet TAKE 1 TO 2 TABLETS BY MOUTH EVERY 6 HOURS NEEDED FOR PAIN 03/05 completed Not Available Not Available Not Available tretinoin 0.025 % topical cream 09/09 completed Not Available Not Available Not Available metronidaz ole 0.75 % (37.5 mg/5 gram) vaginal gel INSERT 1 APPLICAT ORFUL VAGINALL Y ONCE DAILY AT BEDTIME FOR 5 DAYS 02/25 completed Not Available Not Available Not Available prednisone 20 mg tablet TAKE 2 TABLETS BY MOUTH ONCE DAILY FOR 3 DAYS THEN 1 ONCE DAILY FOR 3 DAYS IN THE MORNING WITH FOOD 02/25 completed Not Available Not Available Not Available propranolo l ER 60 mg capsule,24 hr,extende d release TAKE 1 CAPSULE BY MOUTH EVERY OTHER DAY 03/05 completed Not Available Not Available Not Available sertraline 100 mg tablet 09/09 completed Not Available Not Available Not Available Anucort-HC 25 mg suppositor y INSERT 1 SUPPOSIT ORY RECTALLY TWICE DAILY NEEDED active Not Available Not Available No t Available metronidaz ole 500 mg tablet Take 1 tablet every 12 hours by oral route. 07/13 completed Not Available Not Available Not Available nifedipine (bulk) powder active Not Available Not Available Not Available acetaminop hen 300 mg-codeine 30 mg tablet 06/20 completed Not Available Not Available Not Available sulfametho xazole 800 mg-trimeth oprim 160 mg tablet TAKE 1 TABLET BY MOUTH EVERY 12 HOURS FOR 3 DAYS active Not Available Not Available No t Available triamcinol one acetonide 0.1 % topical cream 09/09 completed Not Available Not Available Not Available spironolac tone 25 mg tablet TAKE 1 TABLET BY MOUTH ONCE DAILY 03/05 completed Not Available Not Available Not Available ketorolac 10 mg tablet Take 1 tablet every 6 hours by oral route for 5 days. 01/17 completed Not Available Not Available Not Available lorazepam 0.5 mg tablet TAKE 1 TABLET BY MOUTH ONCE DAILY NEEDED FOR ANXIETY active Not Available Not Available No t Available dexamethas one 1 mg tablet TAKE 1 TABLET BY MOUTH A ONE TIME DOSE AT MIDNIGHT BEFORE THE CORTISOL TEST THE NEXT MORNING. GET A CORTISOL LAB AT 8AM THE NEXT MORNING 06/20 completed Not Available Not Available Not Available benzonatat e 100 mg capsule TAKE 1 TO 2 CAPSULES BY MOUTH EVERY DAY AT BEDTIME NEEDED FOR COUGH. SWALLOW CAPSULES WHOLE. active Not Available Not Available No t Available cephalexin 500 mg capsule 09/19 completed Not Available Not Available Not Available paroxetine 20 mg tablet TAKE 1 TABLET BY MOUTH ONCE DAILY 03/05 completed Not Available Not Available Not Available dexamethas one 4 mg tablet TAKE 2 & 1 2 (TWO & ONE HALF) TABLETS BY MOUTH ONCE DAILY WITH BREAKFAS T FOR 2 DAYS 01/17 completed Not Available Not Available Not Available buspirone 10 mg tablet TAKE 1 TABLET BY MOUTH TWICE DAILY 03/05 completed Not Available Not Available Not Available Gentle Laxative (bisacodyl ) 5 mg tablet,del ayed release 06/20 completed Not Available Not Available Not Available fluorometh olone 0.1 % eye drops,susp ension INSTILL 1 DROP INTO EACH EYE 4 TIMES DAILY FOR 7 DAYS active Not Available Not Available No t Available hyoscyamin e 0.125 mg sublingual tablet DISSOLVE 1 TABLET IN MOUTH EVERY 6 HOURS NEEDED FOR CRAMPS active Not Available Not Available No t Available polymyxin B sulfate 10,000 unit-trime thoprim 1 mg/mL eye drops 09/09 completed Not Available Not Available Not Available diltiazem HCl (bulk) powder 09/09 completed Not Available Not Available Not Available clindamyci n 2 % vaginal cream APPLY 1 APPLICAT ORFUL VAGINALL Y ONCE DAILY FOR 7 DAYS 06/26 completed Not Available Not Available Not Available hydroxyzin e HCl 25 mg tablet TAKE 1/2 TO 1 (ONE-SHASHA F TO ONE) TABLET BY MOUTH EVERY 8 HOURS NEEDED FOR ANXIETY active Not Available Not Available No t Available gabapentin 100 mg capsule TAKE 1 CAPSULE BY MOUTH 2 TO 3 TIMES DAILY NEEDED FOR ANXIETY 03/05 completed Not Available Not Available Not Available ergocalcif kenisha (vitamin D2) 1,250 mcg (50,000 unit) capsule TAKE 1 CAPSULE BY MOUTH ONCE A WEEK active Not Available Not Available No t Available azelastine 137 mcg (0.1 %) nasal spray aerosol USE 1 SPRAY(S) IN EACH NOSTRIL TWICE DAILY active Not Available Not Available No t Available diazepam 10 mg tablet 09/19 completed Not Available Not Available Not Available epinephrin e 0.3 mg/0.3 mL injection, auto-injec tor INJECT CONTENTS OF 1 PEN NEEDED FOR ALLERGIC REACTION active Not Available Not Available No t Available estradiol 0.01% (0.1 mg/gram) vaginal cream INSERT 1 GRAM VAGINALL Y AT BEDTIME FOR 7-10 DAYS THEN TWICE WEEKLY. active Not Available Not Available No t Available topiramate 15 mg sprinkle capsule 09/09 completed Not Available Not Available Not Available methylpred nisolone 4 mg tablets in a dose pack TAKE BY MOUTH DIRECTED ON INSIDE OF PACKAGE 06/20 completed Not Available Not Available Not Available norethindr one (contracep tive) 0.35 mg tablet 09/09 completed Not Available Not Available Not Available ondansetro n 4 mg disintegra ting tablet 09/19 completed Not Available Not Available Not Available fluticason e propionate 50 mcg/actuat ion nasal spray,susp ension USE 1 TO 2 SPRAY(S) IN EACH NOSTRIL ONCE DAILY DIRECTED active Not Available Not Available No t Available metformin ER 500 mg tablet,ext ended release 24 hr TAKE 4 TABLETS BY MOUTH ONCE DAILY 02/25 completed Not Available Not Available Not Available naratripta n 2.5 mg tablet 09/09 completed Not Available Not Available Not Available doxycyclin e hyclate 100 mg tablet 09/09 completed Not Available Not Available Not Available dicyclomin e 10 mg capsule 07/13 completed Not Available Not Available Not Available diazepam 5 mg tablet PATIENT TO BRING WITH TO APPOINTM ENT. DO NOT TAKE PRIOR TO ARRIVAL. MRI STAFF WILL INSTRUCT WHEN TO TAKE MED. 03/05 completed Not Available Not Available Not Available amoxicilli n 875 mg-potassi um clavulanat e 125 mg tablet TAKE 1 TABLET BY MOUTH TWICE DAILY 03/05 completed Not Available Not Available Not Available Ventolin HFA 90 mcg/actuat ion aerosol inhaler INHALE 1 TO 2 PUFFS BY MOUTH EVERY 4 HOURS NEEDED FOR WHEEZING active Not Available Not Available No t Available hydroxyzin e pamoate 25 mg capsule TAKE 1 CAPSULE BY MOUTH THREE TIMES DAILY NEEDED FOR ANXIETY AND FOR SLEEP 03/05 completed Not Available Not Available Not Available clindamyci n 1 % lotion 09/09 completed Not Available Not Available Not Available cyclobenza amirah 5 mg tablet TAKE 1 TO 2 TABLETS BY MOUTH THREE TIMES DAILY NEEDED FOR MUSCLE SPASM active Not Available Not Available No t Available moxifloxac in 0.5 % eye drops INSTILL 1 DROP INTO RIGHT EYE 4 TIMES DAILY FOR 7 DAYS active Not Available Not Available No t Available bupropion HCl XL 150 mg 24 hr tablet, extended release 09/09 completed Not Available Not Available Not Available nitrofuran toin monohydrat e/macrocry stals 100 mg capsule TAKE 1 CAPSULE BY MOUTH EVERY 12 HOURS DIRECTED . TAKE WITH FOOD TO IMPROVE ABSORPTI ON 02/25 completed Not Available Not Available Not Available pregabalin 75 mg capsule 06/26 completed Not Available Not Available Not Available propranolo l 09/09 completed Not Available Not Available Not Available Keflex 750 mg capsule Take 1 capsule every 12 hours by oral route as directed for 7 days. 09/19 completed Not Available Not Available Not Available GaviLyte-G 236 gram-22.74 gram-6.74 gram-5.86 gram oral solution DRINK 2000ML BY MOUTH AT 6PM THE EVENING BEFORE AND 2000ML 4 HOURS BEFORE YOUR PROCEDUR E 06/20 completed Not Available Not Available Not Available Procto-Med HC 2.5 % topical cream perineal applicator APPLY CREAM RECTALLY TWICE DAILY NEEDED UP TO FOR 7 DAYS active Not Available Not Available No t Available Emgality Pen 120 mg/mL subcutaneo us pen injector 02/25 completed Not Available Not Available Not Available Slynd 4 mg (28) tablet Take 1 tablet every day by oral route. 03/05 completed 3 sample packs given Not Available Not Available Not Available Nurtec ODT 75 mg disintegra ting tablet DISSOLVE 1 TABLET BY MOUTH ONCE DAILY AT ONSET OF MIGRAINE . MAX 1 TABLET PER DAY active Not Available Not Available No t Available Ozempic 1 mg/dose (4 mg/3 mL) subcutaneo us pen injector INJECT 1 MG SUBCUTAN EOUSLY ONCE A WEEK 03/21 completed Not Available Not Available Not Available Vitals Date Recorded Body height Body mass index (BMI) Body weight Systolic blood pressure Diastolic blood pressure Provider Name and Address Organization Details Last Updated DateTime 02/26/2024 175.26 cm 32.2 kg/m2 31898.14 g 110 mm[Hg] 60 mm[Hg] Coral BOWERS - LANDSCAPE TECHNICIAN 15:32:58 Social History Question Answer Notes LastModified by Organizat ion Details LastModified Time Tobacco Smoking Status Former Smoker ELISSA Calzada LANDSCAPE TECHNICIAN 01/17/2021 08:23:20 Do You Have An Advance Directive? No Information not available 06/26/2023 What Is Your Level Of Alcohol Consumption? None Former *Qty: 0-3dr/wk Information not available 01/17/2021 What Is Your Level Of Caffeine Consumption? None Former [email or web address] Information not available 06/26/2023 Which Illicit Or Recreational Drugs Have You Used? 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 Information not available 06/08/2021 How Much Tobacco Do You Smoke? 0.5 PPD Information not available 01/17/2021 Sex: Female Functional Status Question Answer Note LastModified by Organizat ion Details LastModified Time What is your exercise level? Moderate Moderate Amount of Exercise (1-3 times weekly) *Note: yoga and cardio Information not available 05/10/2020 Mental Status None recorded. Family History Relationship Description Onset Age of this Age Resolved Age Notes Paternal Grandfather Disorder of cardiovascular system Paternal Grandfather Benign essential hypertension Mother Benign essential hypertension Mother Family history of diabetes mellitus Paternal Grandmother Malignant neoplasm of uterus Uterus Neoplasm, Malignant: not sure if ovarian or uterine Father Family history of diabetes mellitus Father Benign essential hypertension Brother Benign essential hypertension Maternal Grandfather Disorder of cardiovascular system Maternal Grandmother Disorder of cardiovascular system Maternal Grandmother Family history of stroke Paternal Grandmother Malignant tumor of ovary unsure if uterine or ovarian Medical History Condition Response Neurology- Headaches/Migraines Y GI- Irritable Bowel Syndrome Y Gynecological History Statement/Question Response History of Abnormal PAP Y History of Recurrent Ovarian Cysts Y HPV Test Not Applicable Date of Last Mammogram 03/07/2023 Date of LMP 01/05/2024 History of Cervical Dysplasia Y Menstrual Cycle Length (days) 36 History of Infertility Y Sexually Active Y Age at Menarche: 8 Date of Last Colonoscopy 06/22/2022 History of Sexually Transmitted Infectio n N Y Current Control Method Vasectomy Date of Last Pap Smear 04/01/2021 History of PCOS Y Date of Last Cholesterol Screening 09/18 Obstetrics History GPAL:G 3 P 1 2 0 3 Type Value Multiple Births 2 Full Term 1 Induced 0 Spontaneous 0 Premature 2 Living 3 Ectopics 0 Total 3 Immunizations Vaccine Type Date Status Provider Name and Address Organization Details Recorded Time Tdap 07/31/2014 completed Not Available [facility] 01:08:24 Influenza, split virus, trivalent, preservative 08/07/2013 completed Coral garcia [place] - [employer] LANDSCAPE TECHNICIAN 02/26/2024 15:26:33 Influenza, split virus, quadrivalent, PF 06/12/2014 completed Le Carlie garcia [place] - [employer] LANDSCAPE TECHNICIAN 04/30/2023 10:10:02 Tdap 08/31/2016 gabrielle garcia [place] [employer] LANDSCAPE TECHNICIAN 02/26/2024 15:26:33 Influenza, split virus, trivalent, preservative 07/01/2015 gabrielle garcia [place] - [employer] LANDSCAPE TECHNICIAN 02/26/2024 15:26:33 Influenza, split virus, trivalent, preservative 07/06/2016 completed Coral Page null, [place] - [facility] LANDSCAPE TECHNICIAN 02/26/2024 15:26:33 Influenza, split virus, trivalent, PF 06/16/2016 completed Coral Sanchezer null, [place] - [facility] LANDSCAPE TECHNICIAN 02/26/2024 15:26:33 Influenza, split virus, quadrivalent, PF 07/19/2018 completed Coral Page null, [place] [facility] [employer]ANDSCAPE TECHNICIAN 02/26/2024 15:26:33 Influenza, split virus, quadrivalent, PF 08/07/2019 completed Coral Page null, [place] - [facility] LANDSCAPE TECHNICIAN 02/26/2024 15:26:33 Past Encounters Encounter ID Performer Location Encounter Start Date Encounter Closed Date Diagnosis/Indication Diagnosis SNOMED-CT Code [id number] [place] [id number] [address] [facility], [address] [place] [address] 02/26/2024 15:19:26 02/26/2024 16:47:13 Dysuria 92138400 Irregular periods 779534 07 Vaginal irritation 56431 6004 Painful orgasm 546352129 Deep pain on intercourse 842958666 Health Concerns Section Related Observation LastModified by Organization Detai ls LastModified Time None Recorded Concern Status LastModified by Organization Details LastModified Time None Recorded Payers Encounter Date Sequence Insurance Name Policy Number Policy [place] Covered Member ID [place] Member ID Guarantor Name 02/26/2024 1 [facility] [id number] Bel Qureshi [id number] Bel Qureshi Notes Date Note Type Note Provider Name and Address Organization Details Recorded Time 02/26/2024 text/html HPI Notes: Vagin al/ Vulvar Problem ([facility]) Reported by patient. * Location: internal; external; vulvar ; clitoral * Severity: moderate * Duration: 5 months * Timing: Onset: gradual * Context: premenopausal * Associated Signs & Symptoms: constipation; urinary symptoms; painful intercourse Notes: Describes several months of general discomfort in vulvar/vaginal region, has been getting worse lately, even rubbing from clothing is uncomfortable. [place] is getting more uncomfortable also, insertion is ok with adequate lubrication but deeper penetration is painful, also arousal and orgasm are becoming painful. Some urinary sx but not much different from baseline, has seen urology and been diagnosed with interstitial cystitis. Recently restarted pelvic floor PT- she had seen them previously for urinary issues, has been going for a couple of weeks now. Hx PCOS, irregular periods. Vasectomy for contraception. Wondering if she might be perimenopausal. Her mom told her she was done with menopause at age 44. ELIN NICHOLSON, [facility]- [id number] [facility],[address], [place], [id number], [place] - [employer] 02/26/2024 16:46:09 OBGyn Episode No OBEpisode recorded.
--- NOTE | 2024-03-12 16:32 | ED.GENADULT ---
HPI - General Adult General Chief complaint: Extremity Pain/Injury, Upper Stated complaint: R fingers caught in door Time Seen by Provider: 03/12/24 15:58 Source: patient Mode of arrival: ambulatory Limitations: no limitations History of Present Illness HPI narrative: 38-year-old female coming in today after getting her pointer finger on the right hand slammed into the car door. Denies any other injury. Last tetanus shot was updated in 2016. Related Data Previous Rx's ?Medication ?Instructions ?Recorded amoxicillin 875 mg-potassium 1 tab PO BID 7 days #14 tabs 03/12/24 clavulanate 125 mg tablet Allergies Allergy/AdvReac Type Severity Reaction Status Date / Time Iodinated Contrast Media Allergy Severe Verified 03/12/24 15:40 sumatriptan Allergy Severe Verified 03/12/24 15:40 Review of Systems Status of ROS: Reports: 6 or more systems reviewed and unremarkable except as noted in History and below Exam Narrative: Exam Narrative: Well-nourished well-developed patient in clearly in pain. Alert and oriented. Answers questions appropriately. Mood and affect are appropriate. Thoughts are goal oriented and rational. No tangential or magical thinking noted. Patient speaks in full sentences without needing to catch her breath. HEENT: Normocephalic atraumatic. Pupils are equally round reactive to light. Extraocular muscles are intact. Conjunctivae are moist without any icterus noted. Moist mucous membranes. Extremities: 2nd digit on the right hand has a crush injury to the tip of the finger, the nail has been avulsed completely and is hanging on by the distal edge. The proximal nail edge has come out of the nail bed. Const: Vital Signs, click to edit/add: Vital Signs - 24 hr 03/12/24 15:40 Pulse Rate [Pulse Oximeter] 89 Respiratory Rate 16 Blood Pressure [Ri ght Upper Arm] 141/102 H Pulse Oximetry 99 Oxygen Delivery Me thod Room Air Course Course ED Course: X-ray of the hand reveals a tuft fracture. I did consult with Hand/Plastic surgery Dr. Siddiqui at [facility], who recommended talking the nail back into the nail bed pocket and suturing the skin over it. Therefore a digital block was performed with lidocaine which did not achieve its desired effect. Second digital block was done with 2% lidocaine which then did achieve the desired effect of full anesthesia. The wound was cleaned in the usual sterile manner. The nail was tucked back into the nail bed pocket and 2 sutures with 4-0 Ethilon were used on the lateral side to keep the nail down. The flap of skin over the proximal nail edge was then tacked down with 6 0 Ethilon with good cosmetic results. We did discuss the possibility of that nail falling off. Vital Signs Vital signs: Initial Vital Signs Temperature Source Temporal Artery Scan 03/12/24 15:40 Pulse Rate 89 03/12/24 15:40 Respiratory Rate 16 03/12/24 15:40 Blood Pressure 141/102 H 03/12/24 15:40 Blood Pressure Mean 115 H 03/12/24 15:40 Blood Pressure Position Sitting 03/12/24 15:40 Pulse Oximetry 99 03/12/24 15:40 Oxygen Delivery Method Room Air 03/12/24 15:40 Vital Signs Pulse Rate 89 03/12/24 15:40 Respiratory Rate 16 03/12/24 15:40 Blood Pressure 141/102 H 03/12/24 15:40 Pulse Oximetry 99 03/12/24 15:40 Oxygen Delivery Method Room Air 03/12/24 15:40 Pulse Rate 89 03/12/24 15:40 Respiratory Rate 16 03/12/24 15:40 Blood Pressure 141/102 H 03/12/24 15:40 Pulse Oximetry 99 03/12/24 15:40 Oxygen Delivery Method Room Air 03/12/24 15:40 Medical Decision Making MDM Narrative Medical decision making narrative: 38-year-old female with finger injury per above. Has follow-up in 2-3 days with primary care, suture removal in 7-10 days. We discussed wound hygiene. Patient will be placed on antibiotics. And tetanus updated. Imaging Data Hand x-ray: Attestation: I have reviewed the pertinent imaging results. Discharge Plan Discharge Clinical Impression: Closed fracture of tuft of distal phalanx of finger, Avulsion of nail, Crush injury Patient Disposition: Home, Self-Care Condition: Stable Additional Instructions: Take all antibiotics as prescribed. Keep finger clean and dry, avoid soaking such as bathing or swimming. Okay to shower like you normally would. Change dressing once or twice daily. Keep splint on at all times to protect the tip and help with pain. Follow-up with your primary care provider in 2-5 days. Suture removal in 7-10 days. Pain medications sent to [facility]. Prescriptions: New amoxicillin-pot clavulanate 875-125 mg tablet 1 tab PO BID 7 Days Qty: 14 0RF Follow Up/Referrals: Provider,Not a Local [Primary Care Provider] - Stand Alone Forms: MyHealth Info Instructions
[2024-03-12] MEDS: lidocaine HCL 2 % MULTIDOSE 20 ML VIAL INJECTION (17:20)
[2024-03-12] MEDS: TETANUS/DIPHTH/PERTUSSIS 0.5 ML SYRINGE IM (18:05)
== END 2024-03-12 18:20 | disposition home or self-care (01) ==
PROVIDERS: Emergency Provider Family Medicine
DX: S62.630A Displaced fracture of distal phalanx of right index finger, initial encounter for closed fracture (principal); S61.300A Unspecified open wound of right index finger with damage to nail, initial encounter; W20.8XXA Other cause of strike by thrown, projected or falling object, initial encounter
CPT/HCPCS: 73130; 90471; 90715; 99284

== ENCOUNTER 2025-07-20 16:58 | Emergency (ER) | payer OTHER, SELFPAY ==
[2025-07-20 17:06] VITALS: BP 149/95; PULSE 80; RESP 18; TEMP 36.6; O2SAT 100; BMI 29.5
--- NOTE | 2025-07-20 17:12 | ED.GENADULT ---
HPI - General Adult General Date Seen: 07/20/25 Chief complaint: Unspecified Complaint, Adult Stated complaint: right side feels numb Time Seen by Provider: 07/20/25 17:12 Source: patient and RN notes reviewed Mode of arrival: ambulatory Limitations: no limitations History of Present Illness HPI narrative: Bel is a very pleasant 40-year-old female with history of migraines, anxiety, hysterectomy who comes to the emergency room for headache and right arm and leg tingling. Bel notes that she has been having more headaches lately. Does have a history of migraines. She has had more dizziness and even some vertigo last week especially with movement of the head up and down. Because of this she has an MRI of the head and neck scheduled for tomorrow. Today she was actually in the doctor's office when she had some tingling in her right arm and her right leg. She was told to go to the emergency room as they could not rule out stroke. She went home 1st and then came to the [facility]. She notes that the tingling in her right arm and leg has been coming and going since Sunday night or 48 hours ago. It initially started in her right calf and she thought it was her sciatica. Notes however that the tingling actually was also occurring on the front of her leg front of her right thigh. She then noticed that there was some tingling in her right arm. She had no change in her strength. At times the tingling is very some mild and is more of an annoyance. At other times she feels like her arm and leg are cold. She has always been able to move her limbs. She has no facial droop, no fever. Sometimes when she is walking she feels like her right knee might give out but it has not. She is experiencing a little bit of right eye blurriness. In regard to the headache it is bilateral temporal frontal parietal and she states this is very typical for her right before she gets a migraine. She has had nausea and some photophobia which is also typical. She has not had any vomiting. She did take ibuprofen this morning but it did not help. Onset of worsening symptoms of her right arm and leg approximately 1545. No speech impediment. No loss of bowel or bladder control. Related Data Home Medications ?Medication ?Instructions ?Recorded ?Confirmed buspirone 10 mg tablet 10 mg PO BID 07/20/25 07/20/25 diazepam 5 mg tablet 5 mg PO DAILY PRN 07/20/25 07/20/25 esomeprazole magnesium 40 mg 40 mg PO DAILY 07/20/25 07/20/25 capsule,delayed release estradiol 0.01% (0.1 mg/gram) 1 g vaginal DAILY 07/20/25 07/20/25 vaginal cream estradiol 0.05 mg/24 hr semiweekly 1 patch topical 2XW 07/20/25 07/20/25 transdermal patch (Bisi) fluocinonide 0.05 % topical topical 07/20/25 solution hydrocortisone 2.5 % topical cream applic topical BID 07/20/25 hydroxyzine HCl 25 mg tablet 12.5 - 25 mg PO Q8H PRN anxiety 07/20/25 07/20/25 ketoconazole 2 % shampoo topical 07/20/25 lorazepam 0.5 mg tablet 0.5 mg PO DAILY PRN anxiety 07/20/25 07/20/25 lubiprostone 24 mcg capsule 24 mcg PO BID 07/20/25 07/20/25 methocarbamol 500 mg tablet 500 - 1,000 mg PO 3XD PRN muscle 07/20/25 07/20/25 spasm metronidazole 0.75 % (37.5 mg/5 1 appful vaginal QPM 07/20/25 07/20/25 gram) vaginal gel metronidazole 500 mg tablet 500 mg PO Q12H 07/20/25 07/20/25 ondansetron HCl 4 mg tablet 4 mg PO Q8H PRN nausea 07/20/25 07/20/25 progesterone micronized 200 mg 200 mg PO QPM 07/20/25 07/20/25 capsule tizanidine 4 mg tablet 2 - 4 mg PO BID PRN 07/20/25 07/20/25 Allergies Allergy/AdvReac Type Severity Reaction Status Date / Time Iodinated Contrast Media Allergy Severe Verified 07/20/25 17:12 sumatriptan Allergy Severe Verified 07/20/25 17:12 Review of Systems Status of ROS: Reports: 10 or more systems reviewed and unremarkable except as noted in History and below Const: Reports: fatigue; Denies: fever or chills Eyes: Reports: blurry vision; Denies: seeing flashes ENMT: Reports: neck pain (Has been crunching when she turns it for quite some time.); Denies: throat pain, throat swelling or nasal congestion Cardio: Reports: lightheadedness; Denies: chest pain, palpitations, swelling of feet/ankles or shortness of breath with exertion Resp: Denies: shortness of breath or cough GI: Reports: nausea; Denies: abdominal pain, vomiting or diarrhea Musculo: Reports: neck pain (Has been crunching when she turns it for quite some time.) Endo: Reports: fatigue Allergy/Immuno: Denies: throat swelling PFSH PFSH Social History Smoking Status: Never smoker Second hand tobacco smoke exposure: No How often do you have a drink containing alcohol: never AUDIT-C Alcohol total score: 0 Non-prescribed substance use: denies use Exam Narrative: Exam Narrative: Alert and oriented. Appears fatigued but nontoxic in appearance. EOM is full. Pupils equal round. No significant photophobia with looking at light. Head is atraumatic. Mild discomfort with palpation down the cervical spine. Range of motion is full. Positive Spurling on the right with increased right arm symptoms. No increase in leg symptoms. Upper extremity strength and motor intact. Lower extremity strength and motor intact. Romberg is negative. Eyebrow raise smile symmetrical. Tongue is midline. Heart with regular rate and rhythm and lungs are clear. Abdomen soft. Lower extremity without edema. Able to lift both legs independently. Able to kick my hand away with legs bilaterally. Speech and mentation normal. NIH SS 0 Patient noted to have sensation bilaterally. Feels that it is somewhat altered in how it feels on the right extensor surfaces. Const: Vital Signs, click to edit/add: Vital Signs - 24 hr 07/20/25 17:06 07/20/25 19:11 Temperature 98 F 98.5 F Pulse Rate [Right Pulse Oximeter] 80 62 Respiratory Rate 18 18 Blood Pressure [Ri ght Upper Arm] 149/95 H 108/62 Pulse Oximetry 100 99 Oxygen Delivery Me thod Room Air Room Air Documenting provider has reviewed patient's vital signs: yes Course Course ED Course: At this time differential diagnosis includes but is not limited to stroke, hemorrhagic bleed, mass, MS, anxiety, migraine with neurological symptoms. Will treat patient's headache at this time. I did initially suggest CT and CTA given the onset of worsening symptoms at 0345. Patient notes that she does not like to do CTs because of both radiation and the fact that she has an anaphylactic reaction to the contrast. I did state that after hours I am unable to do MRI. She does have MRI scheduled for tomorrow. I did state I would talk to Neurology to see what their thoughts were on CT. She will have IV placed Reglan 10 mg IV piggyback, Benadryl 25 mg, 1 L normal saline. Labs include CBC, basic panel, magnesium. Consultations Consultation #1: At the pleasure of speaking with Dr. Shelia Florez in regards to this patient. Explain patient's request not to have CT and especially not to have CTA. Certainly do understand the fear of anaphylactic reaction. Did explain that this had been ongoing intermittently since Sunday night or [address] Florez does feel that CT would be nice to have and I explained this to the patient and she has agreed. Will hold off on CTA. Dr. Florez notes if CT negative MRI that is scheduled for tomorrow she of the head and neck should be done with and without contrast. Does agree with treatment of migraine. Vital Signs Vital signs: Initial Vital Signs Temperature 98 F 07/20/25 17:06 Temperature Source Temporal Artery Scan 07/20/25 17:06 Pulse Rate 80 07/20/25 17:06 Pulse Rhythm Regular 07/20/25 17:06 Pulse Strength 3+ Normal 07/20/25 17:06 Respiratory Rate 18 07/20/25 17:06 Blood Pressure 149/95 H 07/20/25 17:06 Blood Pressure Mean 113 H 07/20/25 17:06 Blood Pressure Position Sitting 07/20/25 17:06 Pulse Oximetry 100 07/20/25 17:06 Oxygen Delivery Method Room Air 07/20/25 17:06 Vital Signs Temperature 98 F 07/20/25 17:06 Pulse Rate 80 07/20/25 17:06 Respiratory Rate 18 07/20/25 17:06 Blood Pressure 149/95 H 07/20/25 17:06 Pulse Oximetry 100 07/20/25 17:06 Oxygen Delivery Method Room Air 07/20/25 17:06 Temperature 98.5 F 07/20/25 19:11 Pulse Rate 62 07/20/25 19:11 Respiratory Rate 18 07/20/25 19:11 Blood Pressure 108/62 10/20/25 19:11 Pulse Oximetry 99 07/20/25 19:11 Oxygen Delivery Method Room Air 07/20/25 19:11 Medications Administered Medications: Discontinued Medications Generic Name Dose Route Start Last Admin Trade Name Sherrie PRN Reason Stop Dose Admin Diphenhydramine HCl 25 mg 07/20/25 17:33 07/20/25 18:09 Diphenhydramine 50 Mg/Ml Inj IVP 07/20/25 17:34 25 mg ONCE ONE Administration Metoclopramide HCl 10 mg/ 102 mls @ 306 mls/hr 07/20/25 17:33 07/20/25 18:37 Sodium Chloride IVPB 07/20/25 17:34 Infused ONCE ONE Infusion Sodium Chloride 1,000 mls @ 1,000 mls/hr 07/20/25 17:36 07/20/25 18:37 0.9 % Sodium Chloride 1000 Ml IV 07/20/25 18:35 Infused .Q1H SARKIS Infusion Ketorolac Tromethamine 15 mg 07/20/25 18:58 07/20/25 19:07 Ketorolac 15 Mg/Ml Inj IVP 07/20/25 18:59 15 mg ONCE ONE Administration Medical Decision Making MDM Narrative Medical decision making narrative: 1. Headache-moderate improvement with Reglan and Benadryl. Toradol further brought headache too much improved. She really does want to go home and sleep now. MRI brain and neck scheduled for tomorrow. 2. Right-sided tingling-patient really had no neurological deficits in terms of strength or motion. She describes entire limbs being affected but seems to be worse on the extensor surfaces. Head CT was negative. Patient has a anaphylactic reaction to IV contrast for CT and therefore did not do that. She does have MRI scheduled for tomorrow. I had the pleasure of speaking with Dr. Florez neurology at [facility]. She feels that the head CT would be sufficient but does want to have the MRIs that are scheduled for tomorrow to be with and without contrast. Patient has had improvement of her limbs symptoms since her headache improved. 3. Disposition-laboratory values reassuring with no electrolyte imbalance, presence of anemia. Patient does feel comfortable going home this time with intermittent right-sided symptoms for the past 48 hours. She notes much improvement after Toradol. Also has had marked improvement in the right leg and arm symptoms. Medical Records Medical records reviewed: Yes I reviewed the patient's medical records Lab Data Lab results reviewed: Yes I reviewed the patient's lab results Labs: Lab Results 07/20/25 Range/Units 17:48 WBC 5.91 (4.50-11.00) K/uL RBC 4.36 (4.00-5.20) m/uL Hgb 13.5 (12.0-16.0) gm/dL Hct 39.3 (33.0-51.0) % MCV 90 (80-100) fL MCH 31 (26-34) pg MCHC 34 (32-36) gm/dL RDW Coeff of Aleksandra 11.1 L (11.5-15.5) % Plt Count 112 L (140-440) K/uL Neut % (Auto) 71.7 (42.0-72.0) % Lymph % (Auto) 23.9 (20-44) % [place] % (Auto) 3.4 (0.0-11.0) % Eos % (Auto) 0.5 (0.0-7.0) % Baso % (Auto) 0.5 (0.0-3.0) % Neut # (Auto) 4.24 (1.7-7.0) K/uL Lymph # (Auto) 1.41 (0.90-2.90) K/uL [place] # (Auto) 0.20 (0.00-0.90) K/UL Eos # (Auto) 0.03 (0.00-0.50) K/uL Baso # (Auto) 0.03 (0.00-0.30) K/uL Abs Immat Gran (auto) 0.00 (0.00-0.30) K/uL Imm/Tot Granulo (auto) 0.0 % Sodium 134 L (135-149) mmol/L Potassium 4.3 (3.6-5.1) mmol/L Chloride 102 (96-114) mmol/L Carbon Dioxide 22 (20-32) mmol/L Anion Gap 10 (7-15) mEq/L BUN 11 (5-24) mg/dL Creatinine 0.7 (0.5-1.5) mg/dL Estimated Creat Clear 110.53 Estimated GFR 111 ml/min Glucose 99 (60-115) mg/dL Calcium 9.2 (8.4-10.6) mg/dL Magnesium 2.2 (1.5-2.6) mg/dL Imaging Data CT scan - head: Attestation: I have reviewed the pertinent imaging results. My impression: I do not note any acute bleeding or masses. Radiologist's impression: CSF spaces: Within normal limits for age. Brain parenchyma and extra-axial spaces: Evaluation of posterior fossa is partially degraded by streak artifact. The vinson-white differentiation is maintained. No sign of mass, hemorrhage, or midline shift. No extra-axial fluid collection. Skull base and calvarium: The visualized paranasal sinuses and mastoid air cells demonstrate no acute or significant findings. The visualized orbits are grossly unremarkable. No skull fractures. IMPRESSION: No acute intracranial abnormality. Discharge Plan Discharge Clinical Impression: Tingling Headache Qualifiers: Headache type: unspecified Headache chronicity pattern: unspecified pattern Intractability: not intractable Qualified Code(s): R51.9 - Headache, unspecified Patient Disposition: Home, Self-Care Condition: Improved Additional Instructions: On your 5 MRI of the head and neck tomorrow urology suggests that these both be done with and without contrast. Your labs were reassuring tonight. Seek medical attention for worsening symptoms inability to talk, loss of vision and as needed. Prescriptions: No Action buspirone 10 mg tablet 10 mg PO BID diazepam 5 mg tablet 5 mg PO DAILY PRN methocarbamol 500 mg tablet 500 - 1,000 mg PO 3XD PRN (Reason: muscle spasm) ketoconazole 2 % shampoo topical tizanidine 4 mg tablet 2 - 4 mg PO BID PRN metronidazole 0.75 % (37.5mg/5 gram) gel 1 appful vaginal QPM ondansetron HCl 4 mg tablet 4 mg PO Q8H PRN (Reason: nausea) metronidazole 500 mg tablet 500 mg PO Q12H estradiol [Bisi] 0.05 mg/24 hr patch semiweekly 1 patch topical 2XW lorazepam 0.5 mg tablet 0.5 mg PO DAILY PRN (Reason: anxiety) esomeprazole magnesium 40 mg capsule,delayed release(DR/EC) 40 mg PO DAILY progesterone micronized 200 mg capsule 200 mg PO QPM hydrocortisone 2.5 % cream topical BID hydroxyzine HCl 25 mg tablet 12.5 - 25 mg PO Q8H PRN (Reason: anxiety) fluocinonide 0.05 % solution topical estradiol 0.01 % (0.1 mg/gram) cream 1 g vaginal DAILY lubiprostone 24 mcg capsule 24 mcg PO BID Follow Up/Referrals: Provider,Not a Local [Primary Care Provider, Family Practice] Stand Alone Forms: CRS Electronic[employer] Info Instructions
--- NOTE | 2025-07-20 17:48 | CRLHL7_ITS ---
For Patients: As a result of the Century Cures Act, medical imaging exams and procedure reports are released immediately into your electronic medical record. You may view this report before your referring provider. If you have questions, please contact your health care provider. INDICATION: Right-sided tingling TECHNIQUE: CT head without contrast. COMPARISON: None. FINDINGS: CSF spaces: Within normal limits for age. Brain parenchyma and extra-axial spaces: Evaluation of posterior fossa is partially degraded by streak artifact. The vinson-white differentiation is maintained. No sign of mass, hemorrhage, or midline shift. No extra-axial fluid collection. Skull base and calvarium: The visualized paranasal sinuses and mastoid air cells demonstrate no acute or significant findings. The visualized orbits are grossly unremarkable. No skull fractures. IMPRESSION: No acute intracranial abnormality. Please note that all CT scans at this facility use dose modulation, iterative reconstruction, and/or weight-based dosing when appropriate to reduce radiation dose to as low as reasonably achievable. Dictated by Nicol Rudolph MD @ 07/20/2025 6:19:46 PM (Electronically Signed)
[2025-07-20 18:05] LABS: Hematocrit* 39.3 % (33.0-51.0); Hemoglobin* 13.5 gm/dL (12.0-16.0); Immature Granulocytes Abs Auto 0.00 K/uL (0.00-0.30); Immature Granulocytes Pct Auto 0.0 %; Lymphocytes Absolute Auto 1.41 K/uL (0.90-2.90); Mean Corpuscular HGB Conc 34 gm/dL (32-36); Mean Corpuscular Hemoglobin 31 pg (26-34); Mean Corpuscular Volume 90 fL (80-100); RDW Coefficient of Variation % 11.1 % (11.5-15.5); Red Blood Count* 4.36 m/uL (4.00-5.20); White Blood Count* 5.91 K/uL (4.50-11.00)
[2025-07-20 18:06] LABS: Slide Review Reflex No
[2025-07-20] MEDS: METOCLOPRAMIDE HCL 10 MG in 0.9 % SODIUM CHLORIDE 100 ml 100 ML 306 MG IVPB (18:13)
[2025-07-20 18:19] LABS: Chloride* 102 mmol/L (96-114); Potassium* 4.3 mmol/L (3.6-5.1); Sodium* 134 mmol/L (135-149)
[2025-07-20 18:22] LABS: Anion Gap 10 mEq/L (7-15); Blood Urea Nitrogen* 11 mg/dL (5-24); Calcium* 9.2 mg/dL (8.4-10.6); Carbon Dioxide* 22 mmol/L (20-32); Creatinine* 0.7 mg/dL (0.5-1.5); Est. Creatinine Clearance* 110.53; Estimated Glomerular Filt Rate 111 ml/min; Glucose* 99 mg/dL (60-115)
[2025-07-20 19:11] VITALS: BP 108/62; PULSE 62; RESP 18; TEMP 36.9; O2SAT 99
== END 2025-07-20 19:49 | disposition home or self-care (01) ==
PROVIDERS: Emergency Provider Family Medicine
DX: R51.9 Headache, unspecified (principal); R20.2 Paresthesia of skin
CPT/HCPCS: 36415; 70450; 80048; 83735; 85025; 96365; 96375; 99284; J1200; J1885; J2765; J7030